=== PATIENT | female | born 1980 | race Caucasian/White ===

== ENCOUNTER 2024-05-23 19:12 | Observation (INO) ==
--- NOTE | 2024-05-23 20:00 | Emergency Department Note ---
Impression & Plan Pulmonary embolism, Embolism, pulmonary with infarction ED Provider Note NAME: RANDY HE AGE: 43 SEX: F : 1980 ARRIVES VIA: Walk-In INFORMANT: Patient, ED PROVIDER(S): Adam Subramanian DO CHIEF COMPLAINT: Chest pain HPI: The patient is a 43-year-old female who presented to the emergency department for right-sided chest pain. She has pain when she takes a deep breath. The pain does go to her right shoulder. The complains of nausea but no vomiting. She has no diarrhea. She denies having any abdominal pain. The patient states that she still has her gallbladder. She has a family history for pulmonary embolism. The patient's not been seen by a provider prior to coming emergency department. ROS: See above HPI for pertinent positives & negatives. A total of 10 systems reviewed and were otherwise negative. PAST MEDICAL HISTORY: See Below PAST SURGICAL HISTORY: See Below FAMILY HISTORY: See Below SOCIAL HISTORY: See Below HOME MEDICATIONS: See Below ALLERGIES: See Below VITALS: See Below PHYSICAL EXAMINATION: GENERAL: The patient is awake and alert. The patient is anxious appearing and appears to be uncomfortable. EYES: The conjunctivae are clear. The pupils are round and reactive. EARS, NOSE, MOUTH AND THROAT: The nose is without any evidence of any deformity. NECK: The neck is nontender and supple. RESPIRATORY: Normal respiratory effort is noted there is no evidence of wheezing rhonchi or rales CARDIOVASCULAR: Regular rate and rhythm noted there no murmurs rubs or gallops normal S1 normal S2. GASTROINTESTINAL: The abdomen is soft and mildly distended. There was right upper quadrant tenderness to palpation but no guarding or rigidity. MUSCULOSKELETAL/EXTREMITIES: There is no evidence of gross deformity full range of motion is noted in the hips and shoulders. SKIN: There is no obvious evidence of any rash. There are no petechiae, pallor or cyanosis noted. NEUROLOGIC: Patient is awake alert and oriented x3 MEDICAL DECISION MAKING: The patient is a 43-year-old female who presented to the emergency department for an evaluation of right sided chest pain. The patient did have reproducible right upper quadrant pain on my physical exam. Initially I thought the patient was suffering from gallbladder pathology. I discussed the patient's laboratory and radiographic studies with her. Ultimately her gallbladder did not appear to show any abnormality so a CT of the chest abdomen pelvis was obtained. This appeared to be consistent with a right-sided PE with a pulmonary infarct. She was started on heparin. Further laboratory and radiographic studies were ordered to workup this pulmonary embolism. The patient had very reassuring vital signs. I discussed the patient's condition with her. Ultimately I feel the patient would be a better candidate for inpatient management. For this reason I discussed her condition with the on-call [facility]. Triage Nursing notes reviewed. Prior medical records reviewed Vital Signs: reviewed and remarkable for no significant abnormalities Differential diagnosis: Cardiac ischemia, aortic dissection, pulmonary embolism, pneumothorax, pneumonia, pericarditis, myocarditis, esophageal rupture, GERD, cholecystitis, pancreatitis, musculoskeletal, as well as other pathologies. ER treatment provided: See below Diagnostics interpreted by me: ECG: EKG was obtained in the emergency department. My interpretation is normal sinus rhythm at 91 bpm. There is no ectopy. There is no acute ST segment abnormalities noted. No previous tracing was available. Cardiac Monitoring: An order was placed for continuous cardiac monitoring. The monitor shows a rate of 93 bpm with sinus rhythm. Laboratory studies: As stated above and show below. Imaging studies: See below. Radiographic imaging was reviewed by myself Consultation(s): I discussed this case with Dr. Arvizu who is on-call for the [facility]. ED COURSE: Procedures: none Critical Care: I have personally spent greater than 45 minutes of critical care time in the direct management of this patient. This includes bedside care, interpretation of diagnostic studies, and testing, discussion with consultants, patient, and family members, and other required patient management activities. This 45 minutes is in excess of all separately billable procedures. Past Med/Surg History Problem List (Updated 05/23/24 @ 22:02 by Adam Subramanian DO) Embolism, pulmonary with infarction (Acute) Pulmonary embolism (Acute) Acute low back pain (Acute 12/23/12) Dehydration (Acute) Headache (Acute) (Acute) (Acute) Medical History GERD (gastroesophageal reflux disease) Frequent headaches Family History Other Cerebral aneurysm Social History Smoking Status: Never smoker Preferred Language: [place] Feels Safe at Home: Yes Allergies Allergies Allergy/AdvReac Type Severity Reaction Status Date / Time No Known Allergies Allergy Unverified 05/23/24 22:21 Home Meds Home Medications Medication Instructions Recorded Confirmed omeprazole 20 mg capsule,delayed 20 mg PO QAM 05/07/23 05/23/24 release plecanatide 3 mg tablet (Trulance) 3 mg PO QAM 05/07/23 05/23/24 cholecalciferol (vitamin D3) 50 50 mcg PO DAILY 05/23/24 05/23/24 mcg (2,000 unit) tablet (Vitamin D3) cyanocobalamin (vitamin B-12) 500 500 mcg PO DAILY 05/23/24 05/23/24 mcg tablet (Vitamin B-12) famotidine 20 mg tablet 20 mg PO AMHS 05/23/24 05/23/24 [id number]-[id number]-FA-Ca carb-vit K 1 tab PO DAILY 05/23/24 05/23/24 18 mg iron-400 mcg-500 mg tablet (Women's One Daily) Results & Data (ED) Vital Signs Vital Signs - 24 hr 05/23/24 19:16 05/23/24 19:37 05/23/24 21:11 Temperature 36.6 C Temperature Source Temporal Artery Scan Pulse Rate 106 H 93 H Pulse Rate [Apical] 84 Pulse Rhythm [Apical] Pulse Strength [Apical] Respiratory Rate 18 19 Respiratory Effort / Characteristics Non-Labored Respiratory Depth Normal Normal Respiratory Pattern Regular Blood Pressure 115/80 Blood Pressure [Right Arm] 122/79 Blood Pressure Mean 91 Blood Pressure Mean [Right Arm] 93 Pulse Oximetry 100 95 Oxygen Delivery Method Room Air Room Air Sepsis Recent Fever Within 48 Hours No Sepsis New/Unexplained Change in Mental Status No Sepsis Action Taken by Nursing No Action Required 05/23/24 22:56 05/23/24 23:49 Temperature Temperature Source Pulse Rate 93 H Pulse Rate [Apical] 92 H Pulse Rhythm [Apical] Regular Pulse Strength [Apical] Normal Respiratory Rate 19 Respiratory Effort / Characteristics Non-Labored Spontaneous Respiratory Depth Normal Respiratory Pattern Regular Blood Pressure Blood Pressure [Right Arm] 122/78 Blood Pressure Mean Blood Pressure Mean [Right Arm] 92 Pulse Oximetry 98 Oxygen Delivery Method Room Air Sepsis Recent Fever Within 48 Hours Sepsis New/Unexplained Change in Mental Status Sepsis Action Taken by Custodial Medications Current Medication List: was personally reviewed by me Laboratory Data Attestation: I reviewed the patient's lab results. 05/23/24 19:57 05/23/24 19:57 Lab Results 05/23/24 05/23/24 05/23/24 Range/Units 19:57 20:00 Unknown WBC 8.25 (4.8-10.8) K/ul RBC 4.95 (4.20-5.40) M/uL Hgb 13.1 (12.0-16.0) g/dl Hct 38.8 (37.0-47.0) % MCV 78.4 L (80.0-100.0) fL MCH 26.5 (25.0-34.0) pg MCHC 33.8 (32.0-36.0) g/dL RDW Std Deviation 38.0 (36.4-46.3) fL RDW Coeff of Gomez 13.3 (11.5-14.5) % Plt Count 244 (130-400) K/uL MPV 9.7 (9.4-12.4) fL Immature Gran % (Auto) 0.1 % Neut % (Auto) 67.9 % Lymph % (Auto) 23.8 % Waller % (Auto) 7.3 % Eos % (Auto) 0.7 % Baso % (Auto) 0.2 % Neut # (Auto) 5.60 (1.40-6.50) K/uL Lymph # (Auto) 1.96 (1.20-3.40) K/uL Waller # (Auto) 0.60 H (0.11-0.59) K/uL Eos # (Auto) 0.06 (0.00-0.50) K/uL Baso # (Auto) 0.02 (0.00-0.20) K/uL Immature Gran # (Auto) 0.01 (0.01-0.20) K/uL PT 10.9 (9.0-12.0) Seconds INR 1.0 (0.9-1.1) APTT 28 (21-31) Seconds PTT Ratio 1.0 D-Dimer 900 H* (0-500) ug/L FEU Sodium 139 (136-145) mmol/L Potassium 3.7 (3.5-5.1) mmol/L Chloride 109 H (98-107) mmol/L Carbon Dioxide 24 (21-32) mmol/L Anion Gap 6 (3-11) BUN 10 (6-23) mg/dl Creatinine 0.61 (0.6-1.2) mg/dl Est Cr Clr Drug Dosing 124.6 ml/min Est GFR ( Amer) 128.7 ml/min Est GFR (Non-Af Amer) 111.0 ml/min BUN/Creatinine Ratio 16.4 (10-20) Glucose 116 H (70-99(Fasting)) mg/dl Calcium 9.3 (8.6-10.3) mg/dl Total Bilirubin 0.8 (0.2-1.0) mg/dl AST 14 (13-39) U/L ALT 10 (7-52) U/L Alkaline Phosphatase 96 (34-104) U/L Troponin I High Sens < 2.3 (0-14) pg/ml Total Protein 6.9 (6.0-8.3) gm/dl Albumin 4.0 (3.4-5.0) gm/dl Globulin 2.9 (2.5-4.0) gm/dl Albumin/Globulin Ratio 1.4 (0.9-2) Lipase 24 (11-82) U/L HCG, Qual Negative (Negative) Urine Color Yellow Cancelled Urine Appearance Slightly Cloudy Cancelled (Clear) Urine pH 7.5 Cancelled (4.5-7.5) Ur Specific Lenox 1.020 Cancelled (1.000-1.030) Urine Protein Trace H Cancelled (Negative) Urine Glucose (UA) Negative Cancelled (Negative) Urine Ketones Trace H Cancelled (Negative) Urine Blood Negative Cancelled (Negative) Urine Nitrite Negative Cancelled (Negative) Urine Bilirubin Negative Cancelled (Negative) Urine Urobilinogen Negative Cancelled (Negative) Ur Leukocyte Esterase Trace H Cancelled (Negative) Urine WBC (Auto) Cancelled Urine RBC (Auto) Cancelled U Hyaline Cast (Auto) Cancelled U Epithel Cells (Auto) Cancelled Urine Bacteria (Auto) Cancelled Ur Renal Epithelial Cell Cancelled Pryor Biurate Crystals Cancelled Calcium Oxalate Crystal Cancelled Leucine Crystals Cancelled Cystine Crystals Cancelled Uric Acid Crystals Cancelled Triple Phos Crystals Cancelled Sulfonamide Crystals Cancelled Cholesterol Crystals Cancelled Talc Crystals Cancelled Tyrosine Crystals Cancelled Hippuric Acid Crystals Cancelled Unidentified Crystals Cancelled Amorphous Sediment Cancelled Epithelial Casts Cancelled Hyaline Casts Cancelled Granular Casts Cancelled Waxy Casts Cancelled RBC Casts Cancelled WBC Casts Cancelled Other Casts Cancelled Urine Mucus Cancelled Urine Other Cancelled Urine Trichomonas Cancelled Urine Yeast Cancelled Urine Sperm Cancelled Ur Oval Fat Bodies Cancelled Administered Medications Heparin Sodium/Dextrose (Heparin Sodium/Dextrose) 25,000 units in 500 mls @ 24 mls/hr IV .[id number] [facility]; Protocol Stop: 06/22/24 22:29 Last Admin: 05/23/24 22:50 Dose: 1,200 units/hr, 24 mls/hr Documented By: ASHA Co-signed By: Discontinued Medications Heparin Sodium (Porcine) (Heparin Sod (Porcine) 1000 Unit/Ml) 5,000 units IV NOW ONE Stop: 05/23/24 22:46 Last Admin: 05/23/24 22:50 Dose: 5,000 units Documented By: ASHA Co-signed By: Heparin Sodium/Dextrose (Heparin Iv Adult Wt-Based Standard W/ Initial Bolus Protocol) 1 each IV NOW STA; Protocol Stop: 05/23/24 22:13 Last Admin: 05/23/24 22:58 Dose: Not Given Documented By: ASHA Ioversol (Optiray 320 125ml) 119 ml IV ONCE ONE Stop: 05/23/24 21:03 Last Admin: 05/23/24 21:03 Dose: 119 ml Documented By: MAURICE Imaging Data Attestation: I personally reviewed and interpreted this imaging study as follows: My Impression: CT of the chest was obtained in the emergency department. My interpretation is left-sided atelectasis with infiltrate, small pleural effusion was noted, final report below. CT of the abdomen and pelvis was obtained in the emergency department. My interpretation is no free air or signs of bowel obstruction, final report below. Radiologist's Impression: Gallbladder Ultrasound 05/23/24 19:29 Exam(s): US GALLBLADDER EXAM: US Abdomen Limited, Gallbladder CLINICAL HISTORY: Reason for exam: RUQ pain. TECHNIQUE: Real-time ultrasound of the right upper quadrant with image documentation. COMPARISON: CTA chest done earlier. FINDINGS: Liver: Unremarkable. Gallbladder: Normally distended. No gallstones, wall thickening or acute cholecystitis. Common bile duct: CBD 3 mm. No dilation. Pancreas: Not visualized, due to bowel gas. Right kidney: No hydronephrosis. IMPRESSION: No acute findings. No hydronephrosis, cholelithiasis or acute cholecystitis. Electronically signed by: Stacey Smith M.D. 05/23/24 21:56 PM Abdomen/Pelvis CT 05/23/24 20:41 Exam(s): CT ABDOMEN + PELVIS With Contrast IV Amt: 119 ml optiray 320 EXAM: CT Abdomen and Pelvis With Intravenous Contrast CLINICAL HISTORY: Reason for exam: RUQ pain. TECHNIQUE: Axial computed tomography images of the abdomen and pelvis with intravenous contrast. CTDI is 24.35 mGy and DLP is 1261 mGy-cm. Automated exposure control was utilized for the study. A dose lowering technique was utilized adhering to the principles of ALARA. CONTRAST: Patient received 119 ml optiray 320 of IV contrast COMPARISON: Gallbladder ultrasound done earlier. FINDINGS: Lung bases: 1.6 cm cyst in the right breast, not well evaluated by CT, correlate with mammogram and/or ultrasound. There is a separately dictated CTA chest describing a right lower lobe PE. See that separately dictated report. Liver: Unremarkable. Gallbladder and bile ducts: Normal gallbladder. No ductal dilation. Pancreas: No ductal dilation. Spleen: Unremarkable. Adrenals: Unremarkable. Kidneys and ureters: No pyelonephritis or hydronephrosis. Stomach and bowel: No obstruction. Appendix: Normal. Intraperitoneal space: No free air or fluid. Bones/joints: No acute fracture. Soft tissues: Unremarkable. Vasculature: No aortic aneurysm. Lymph nodes: No enlarged lymph nodes. Bladder: No stones. Reproductive: Within normal limits for patient's age and this technique, with bilateral ovarian follicles, largest on the left measuring 1.5 cm. IMPRESSION: 1. No acute intra-abdominal or intrapelvic abnormality. 2. Probable cyst in the right breast, not well evaluated by CT. Consider ultrasound correlation. 3. Presumed physiologic follicles bilateral ovaries. No pelvic free fluid. Electronically signed by: Stacey Smith M.D. 05/23/24 22:09 PM Chest CTA 05/23/24 20:41 CR Exam(s): CTA CHEST IV Amt: 119 ml optiry 320 EXAM: CT Angiography Chest With Intravenous Contrast CLINICAL HISTORY: Reason for exam: PE. TECHNIQUE: Axial computed tomographic angiography images of the chest with intravenous contrast. CTDI is 24.82 mGy and DLP is 720.9 mGy-cm. Automated exposure control was utilized for the study. A dose lowering technique was utilized adhering to the principles of ALARA. 119 ML Optiray 320 IV contrast is given. MIP reconstructed images were created and reviewed. Mild breathing motion artifact. COMPARISON: None. FINDINGS: Pulmonary arteries: Small volume, occlusive subsegmental right lower lobe pulmonary embolism. No other pulmonary embolism. Aorta: No aneurysm. Lungs: Mild nodular interstitial infiltrates posterior right lower lobe lung, nonspecific, possible atelectasis, infiltrate or infarct. Pleural space: Mild right effusion. No pneumothorax. Heart: No cardiomegaly. No significant pericardial effusion. No evidence of elevated right heart pressures. Bones/joints: No acute fracture. Soft tissues: Unremarkable. Lymph nodes: No enlarged lymph nodes. IMPRESSION: 1. Mild burden occlusive subsegmental right lower lobe PE. 2. Mild right pleural effusion and infiltrate/infarct right lower lobe lung. Communications: Call Doctor Pulmonary Embolism Electronically signed by: Stacey Smith M.D. 05/23/24 21:49 PM Discharge Plan Visit Data Chief Complaint: Abdominal Pain Stated Complaint: CAN'T TAKE DEEP BREATH, CHEST PAIN ED Provider: Adam Subramanian Discharge Problem: Pulmonary embolism, Embolism, pulmonary with infarction Patient Disposition: Being Evaluated by Hospitalist Forms Stand Alone Forms: My [facility] Prescriptions Prescriptions: No Action omeprazole 20 mg capsule,delayed release(DR/EC) 20 mg PO QAM Trulance 3 mg tablet 3 mg PO QAM Women's One Daily 18 mg iron-400 mcg-500 mg Tablet 1 tab PO DAILY cyanocobalamin (vitamin B-12) [Vitamin B-12] 500 mcg Tablet 500 mcg PO DAILY cholecalciferol (vitamin D3) [Vitamin D3] 50 mcg (2,000 unit) Tablet 50 mcg PO DAILY famotidine 20 mg Tablet 20 mg PO AMHS Referrals Referrals: Ludwig Dao DO [Primary Care Provider] - Discharge Problem: Pulmonary embolism Qualifiers: Pulmonary embolism type: unspecified Chronicity: acute Acute cor pulmonale presence: unspecified Qualified Code(s): I26.99 - Other pulmonary embolism without acute cor pulmonale
[2024-05-23 20:10] LABS: Appearance Urine Slightly Cloudy (Clear); Bilirubin Urine Negative (Negative); Blood Urine Negative (Negative); Color Urine Yellow; Glucose Urine UA Negative (Negative); Ketones Urine Trace (Negative); Leukocyte Esterase Urine Trace (Negative); Nitrite Urine Negative (Negative); Protein Urine Trace (Negative); Urobilinogen Urine Negative (Negative); pH Urine 7.5 (4.5-7.5)
[2024-05-23 20:15] LABS: Basophils # (auto) 0.02 K/uL (0.00-0.20); Basophils % (auto) 0.2 %; Eosinophils # (auto) 0.06 K/uL (0.00-0.50); Eosinophils % (auto) 0.7 %; Hematocrit (blood only) 38.8 % (37.0-47.0); Hemoglobin 13.1 g/dl (12.0-16.0); Immature Granulocytes # (auto) 0.01 K/uL (0.01-0.20); Immature Granulocytes % (auto) 0.1 %; Lymphocytes # (auto) 1.96 K/uL (1.20-3.40); Lymphocytes % (auto) 23.8 %; Mean Corpuscular Hemoglobin 26.5 pg (25.0-34.0); Mean Corpuscular Hgb Conc 33.8 g/dL (32.0-36.0); Mean Corpuscular Volume 78.4 fL (80.0-100.0); Mean Platelet Volume 9.7 fL (9.4-12.4); Monocytes % (auto) 7.3 %; Neutrophils % (auto) 67.9 %; Platelet Count 244 K/uL (130-400); RDW Coefficient of Variation 13.3 % (11.5-14.5); Red Blood Count 4.95 M/uL (4.20-5.40); White Blood Count 8.25 K/ul (4.8-10.8)
[2024-05-23 20:31] LABS: Pregnancy Test, Serum Negative (Negative)
[2024-05-23 20:33] LABS: Alanine Aminotransferase 10 U/L (7-52); Albumin Globulin Ratio 1.4 (0.9-2); Alkaline Phosphatase 96 U/L (34-104); Anion Gap 6 (3-11); Aspartate Aminotransferase 14 U/L (13-39); BUN Creatinine Ratio 16.4 (10-20); Bilirubin,Total 0.8 mg/dl (0.2-1.0); Blood Urea Nitrogen 10 mg/dl (6-23); Calcium 9.3 mg/dl (8.6-10.3); Carbon Dioxide 24 mmol/L (21-32); Chloride 109 mmol/L (98-107); Creatinine Clr Calc Pharmacy 124.6 ml/min; Est GFR (African American) 128.7 ml/min; Globulin 2.9 gm/dl (2.5-4.0); Glucose 116 mg/dl (70-99(Fasting)); Lipase 24 U/L (11-82); Potassium 3.7 mmol/L (3.5-5.1); Sodium 139 mmol/L (136-145); Total Protein 6.9 gm/dl (6.0-8.3)
[2024-05-23 20:38] LABS: Troponin I High Sensitivity < 2.3 pg/ml (0-14)
[2024-05-23 20:46] LABS: Partial Thromboplastin Time 28 Seconds (21-31); Prothrombin Time 10.9 Seconds (9.0-12.0)
[2024-05-23 20:57] LABS: D Dimer 900 ug/L FEU (0-500)
[2024-05-23] MEDS: OPTIRAY 320 125ml IV ONE (21:03)
--- NOTE | 2024-05-23 21:50 | CT Scan Report ---
Exam(s): CTA CHEST IV Amt: 119 ml optiry 320 EXAM: CT Angiography Chest With Intravenous Contrast CLINICAL HISTORY: Reason for exam: PE. TECHNIQUE: Axial computed tomographic angiography images of the chest with intravenous contrast. CTDI is 24.82 mGy and DLP is 720.9 mGy-cm. Automated exposure control was utilized for the study. A dose lowering technique was utilized adhering to the principles of ALARA. 119 ML Optiray 320 IV contrast is given. MIP reconstructed images were created and reviewed. Mild breathing motion artifact. COMPARISON: None. FINDINGS: Pulmonary arteries: Small volume, occlusive subsegmental right lower lobe pulmonary embolism. No other pulmonary embolism. Aorta: No aneurysm. Lungs: Mild nodular interstitial infiltrates posterior right lower lobe lung, nonspecific, possible atelectasis, infiltrate or infarct. Pleural space: Mild right effusion. No pneumothorax. Heart: No cardiomegaly. No significant pericardial effusion. No evidence of elevated right heart pressures. Bones/joints: No acute fracture. Soft tissues: Unremarkable. Lymph nodes: No enlarged lymph nodes. IMPRESSION: 1. Mild burden occlusive subsegmental right lower lobe PE. 2. Mild right pleural effusion and infiltrate/infarct right lower lobe lung. Communications: Call Doctor Pulmonary Embolism Electronically signed by: Stacey Smith M.D. 05/23/24 21:49 PM
--- NOTE | 2024-05-23 21:57 | Ultrasound Report ---
Exam(s): US GALLBLADDER EXAM: US Abdomen Limited, Gallbladder CLINICAL HISTORY: Reason for exam: RUQ pain. TECHNIQUE: Real-time ultrasound of the right upper quadrant with image documentation. COMPARISON: CTA chest done earlier. FINDINGS: Liver: Unremarkable. Gallbladder: Normally distended. No gallstones, wall thickening or acute cholecystitis. Common bile duct: CBD 3 mm. No dilation. Pancreas: Not visualized, due to bowel gas. Right kidney: No hydronephrosis. IMPRESSION: No acute findings. No hydronephrosis, cholelithiasis or acute cholecystitis. Electronically signed by: Stacey Smith M.D. 05/23/24 21:56 PM
--- NOTE | 2024-05-23 22:10 | CT Scan Report ---
Exam(s): CT ABDOMEN + PELVIS With Contrast IV Amt: 119 ml optiray 320 EXAM: CT Abdomen and Pelvis With Intravenous Contrast CLINICAL HISTORY: Reason for exam: RUQ pain. TECHNIQUE: Axial computed tomography images of the abdomen and pelvis with intravenous contrast. CTDI is 24.35 mGy and DLP is 1261 mGy-cm. Automated exposure control was utilized for the study. A dose lowering technique was utilized adhering to the principles of ALARA. CONTRAST: Patient received 119 ml optiray 320 of IV contrast COMPARISON: Gallbladder ultrasound done earlier. FINDINGS: Lung bases: 1.6 cm cyst in the right breast, not well evaluated by CT, correlate with mammogram and/or ultrasound. There is a separately dictated CTA chest describing a right lower lobe PE. See that separately dictated report. Liver: Unremarkable. Gallbladder and bile ducts: Normal gallbladder. No ductal dilation. Pancreas: No ductal dilation. Spleen: Unremarkable. Adrenals: Unremarkable. Kidneys and ureters: No pyelonephritis or hydronephrosis. Stomach and bowel: No obstruction. Appendix: Normal. Intraperitoneal space: No free air or fluid. Bones/joints: No acute fracture. Soft tissues: Unremarkable. Vasculature: No aortic aneurysm. Lymph nodes: No enlarged lymph nodes. Bladder: No stones. Reproductive: Within normal limits for patient's age and this technique, with bilateral ovarian follicles, largest on the left measuring 1.5 cm. IMPRESSION: 1. No acute intra-abdominal or intrapelvic abnormality. 2. Probable cyst in the right breast, not well evaluated by CT. Consider ultrasound correlation. 3. Presumed physiologic follicles bilateral ovaries. No pelvic free fluid. Electronically signed by: Stacey Smith M.D. 05/23/24 22:09 PM
[2024-05-23] MEDS ORDERED: HEPARIN SOD (PORCINE) 1000 UNIT/ML IV ONE (22:27)
[2024-05-23] MEDS: HEPARIN SOD (PORCINE) 1000 UNIT/ML IV ONE (22:50)
[2024-05-23] MEDS: HEPARIN SODIUM/DEXTROSE 25,000 UNITS/500 ML BAG IV SCH (22:50)
[2024-05-23] MEDS: Heparin IV Adult Wt-Based Standard w/ INITIAL Bolus Protocol IV STA (22:58)
--- NOTE | 2024-05-23 23:59 | History & Physical Report ---
Date of Service May 23, 2024 Assessment & Plan (1) Embolism, pulmonary with infarction: Plan: 43-year-old female with past medical significant for hyperinsulinism, nonsustained ventricular tachycardia, GERD, overactive bladder, chronic pain, obesity, chronic fatigue, general anxiety disorder presents with right-sided chest pain and found to have acute PE. Patient states she woke up in the morning with right shoulder pain radiating to the right back of the chest thought it would go away but it was not getting better so came to the ER. The pain is more when she taking deep breath. Denies any shortness of breath. No cough. No fevers. Currently no headache. Vision is okay. No runny nose or sore throat. Appetite is okay. No nausea.Has some abdominal discomfort which is chronic and also chronic issues with the bowel movements. Normal bladder movements. No bloody or black stools. No hematuria. No rash. No swelling in the legs. Hemodynamics okay. No recent long distance travel. No recent surgery. Mother had a blood clot once after surgery and once after after being hit by a ball as per patient.Patient had history of Lyme disease. Acute pulmonary embolism with infarction Hypercoagulable workup sent by ER Started on IV heparin Will check echo and lower EXTR Doppler Monitor in the hospital History of nonsustained ventricular tachycardia Will monitor GERD On famotidine And omeprazole DVT prophylaxis IV heparin Disposition Med/telemetry Full code. History of Present Illness Chief Complaint: Acute PE Primary Care Provider: Ludwig Dao DO 43-year-old female with past medical significant for hyperinsulinism, nonsustained ventricular tachycardia, GERD, overactive bladder, chronic pain, obesity, chronic fatigue, general anxiety disorder presents with right-sided chest pain and found to have acute PE. Patient states she woke up in the morning with right shoulder pain radiating to the right back of the chest thought it would go away but it was not getting better so came to the ER. The pain is more when she taking deep breath. Denies any shortness of breath. No cough. No fevers. Currently no headache. Vision is okay. No runny nose or sore throat. Appetite is okay. No nausea. No abdominal pain. Normal bowel and bladder movements. No bloody or black stools. No hematuria. No rash. No swelling in the legs. Hemodynamics okay. No recent long distance travel. No recent surgery. Mother had a blood clot once after surgery and once after after being hit by a ball as per patient.Patient had history of Lyme disease. Past medical history. As mentioned above Past surgical history. Colonoscopy. Colposcopy. Dilatation curettage. EGD. EGD with endoscopic ultrasound. Hysteroscopy. Removal of several ovary and cyst. Social history. quit smoking 2008. Smoked 1 pack a day for 5 years. No alcohol use. No drug use. Family history mother had blood clots. CLL. Diabetes. Kidney stones. Maternal aunt had breast cancer. Maternal grandmother had breast cancer. Maternal aunt had diabetes. Maternal grandfather had diabetes. Maternal grandmother had diabetes. Allergies Allergy/AdvReac Type Severity Reaction Status Date / Time No Known Allergies Allergy Unverified 05/23/24 22:21 Home Medications Medication Instructions Recorded Confirmed Type omeprazole 20 mg capsule,delayed 20 mg PO QAM 05/07/23 05/23/24 History release plecanatide 3 mg tablet (Trulance) 3 mg PO QAM 05/07/23 05/23/24 History cholecalciferol (vitamin D3) 50 50 mcg PO DAILY 05/23/24 05/23/24 History mcg (2,000 unit) tablet (Vitamin D3) cyanocobalamin (vitamin B-12) 500 500 mcg PO DAILY 05/23/24 05/23/24 History mcg tablet (Vitamin B-12) famotidine 20 mg tablet 20 mg PO AMHS 05/23/24 05/23/24 History ydgrhntz-mws-wvtw-FA-Ca carb-vit K 1 tab PO DAILY 05/23/24 05/23/24 History 18 mg iron-400 mcg-500 mg tablet (Women's One Daily) Past Med/Surg History Problem List (Updated 05/23/24 @ 22:02 by Adam Subramanian DO) Embolism, pulmonary with infarction (Acute) Pulmonary embolism (Acute) Acute low back pain (Acute 12/23/12) Dehydration (Acute) Headache (Acute) (Acute) (Acute) Medical History GERD (gastroesophageal reflux disease) Frequent headaches Family History Other Cerebral aneurysm Social History Smoking Status: Former smoker Smoking End Date: pt states quit 2009; Hx Alcohol Use: No Hx Substance Use: No Preferred Language: Latvian Communication Ability: Effective Intelligence Manager Required: No Beliefs That Will Affect Care: None Current Living Situation: Spouse Feels Safe at Home: Yes Safety Concerns: Feels Safe At This Time Assistive Devices: Denture - Upper and Denture - Lower Review of Systems Review of Systems: All systems reviewed & are unremarkable except as noted in HPI & below Physical Exam Physical Exam: General- Not in distress. Head- atraumatic Eyes- PERRL. ENT- oropharynx clear Neck- supple, no JVD. Lungs- clear to auscultation no wheezing or crackles Heart- regular rate and rhythm; no murmur, no gallop. Abdomen- normal bowel sounds, soft, nontender, no distension Extremities- no pretibial edema, no erythema seen. Neuro- alert, oriented; PERRL, no facial palsy; no dysarthria; moves extremities Results & Data Results & Data Vital Signs (Past 12 Hours) Vital Signs Temp Pulse Pulse Resp BP BP Pulse Ox 05/23/24 22:56 92 H 19 122/78 98 05/23/24 21:11 84 19 122/79 95 05/23/24 19:37 93 H 05/23/24 19:16 36.6 C 106 H 18 115/80 100 O2 Del Method 05/23/24 22:56 Room Air 05/23/24 21:11 Room Air 05/23/24 19:37 05/23/24 19:16 Room Air Diagnostic Findings Laboratory Results WBC 8.25 K/ul (4.8-10.8) 05/23/24 19:57 RBC 4.95 M/uL (4.20-5.40) 05/23/24 19:57 Hgb 13.1 g/dl (12.0-16.0) 05/23/24 19:57 Hct 38.8 % (37.0-47.0) 05/23/24 19:57 MCV 78.4 fL (80.0-100.0) L 05/23/24 19:57 MCH 26.5 pg (25.0-34.0) 05/23/24 19:57 MCHC 33.8 g/dL (32.0-36.0) 05/23/24 19:57 RDW Std Deviation 38.0 fL (36.4-46.3) 05/23/24 19:57 RDW Coeff of Gomez 13.3 % (11.5-14.5) 05/23/24 19:57 Plt Count 244 K/uL (130-400) 05/23/24 19:57 MPV 9.7 fL (9.4-12.4) 05/23/24 19:57 Immature Gran % (Auto) 0.1 % 05/23/24 19:57 Neut % (Auto) 67.9 % 05/23/24 19:57 Lymph % (Auto) 23.8 % 05/23/24 19:57 Emanuel % (Auto) 7.3 % 05/23/24 19:57 Eos % (Auto) 0.7 % 05/23/24 19:57 Baso % (Auto) 0.2 % 05/23/24 19:57 Neut # (Auto) 5.60 K/uL (1.40-6.50) 05/23/24 19:57 Lymph # (Auto) 1.96 K/uL (1.20-3.40) 05/23/24 19:57 Emanuel # (Auto) 0.60 K/uL (0.11-0.59) H 05/23/24 19:57 Eos # (Auto) 0.06 K/uL (0.00-0.50) 05/23/24 19:57 Baso # (Auto) 0.02 K/uL (0.00-0.20) 05/23/24 19:57 Immature Gran # (Auto) 0.01 K/uL (0.01-0.20) 05/23/24 19:57 PT 10.9 Seconds (9.0-12.0) 05/23/24 19:57 INR 1.0 (0.9-1.1) 05/23/24 19:57 APTT 28 Seconds (21-31) 05/23/24 19:57 PTT Ratio 1.0 05/23/24 19:57 D-Dimer 900 ug/L FEU (0-500) H* 05/23/24 19:57 Sodium 139 mmol/L (136-145) 05/23/24 19:57 Potassium 3.7 mmol/L (3.5-5.1) 05/23/24 19:57 Chloride 109 mmol/L (98-107) H 05/23/24 19:57 Carbon Dioxide 24 mmol/L (21-32) 05/23/24 19:57 Anion Gap 6 (3-11) 05/23/24 19:57 BUN 10 mg/dl (6-23) 05/23/24 19:57 Creatinine 0.61 mg/dl (0.6-1.2) 05/23/24 19:57 Est Cr Clr Drug Dosing 124.6 ml/min 05/23/24 19:57 Est GFR ( Amer) 128.7 ml/min 05/23/24 19:57 Est GFR (Non-Af Amer) 111.0 ml/min 05/23/24 19:57 BUN/Creatinine Ratio 16.4 (10-20) 05/23/24 19:57 Glucose 116 mg/dl (70-99(Fasting)) H 05/23/24 19:57 Calcium 9.3 mg/dl (8.6-10.3) 05/23/24 19:57 Total Bilirubin 0.8 mg/dl (0.2-1.0) 05/23/24 19:57 AST 14 U/L (13-39) 05/23/24 19:57 ALT 10 U/L (7-52) 05/23/24 19:57 Alkaline Phosphatase 96 U/L (34-104) 05/23/24 19:57 Troponin I High Sens < 2.3 pg/ml (0-14) 05/23/24 19:57 Total Protein 6.9 gm/dl (6.0-8.3) 05/23/24 19:57 Albumin 4.0 gm/dl (3.4-5.0) 05/23/24 19:57 Globulin 2.9 gm/dl (2.5-4.0) 05/23/24 19:57 Albumin/Globulin Ratio 1.4 (0.9-2) 05/23/24 19:57 Lipase 24 U/L (11-82) 05/23/24 19:57 HCG, Qual Negative (Negative) 05/23/24 19:57 Urine Color Cancelled 05/23/24 Unknown Urine Appearance Cancelled 05/23/24 Unknown Urine pH Cancelled 05/23/24 Unknown Ur Specific [place] Cancelled 05/23/24 Unknown Urine Protein Cancelled 05/23/24 Unknown Urine Glucose (UA) Cancelled 05/23/24 Unknown Urine Ketones Cancelled 05/23/24 Unknown Urine Blood Cancelled 05/23/24 Unknown Urine Nitrite Cancelled 05/23/24 Unknown Urine Bilirubin Cancelled 05/23/24 Unknown Urine Urobilinogen Cancelled 05/23/24 Unknown Ur Leukocyte Esterase Cancelled 05/23/24 Unknown Urine WBC (Auto) Cancelled 05/23/24 Unknown Urine RBC (Auto) Cancelled 05/23/24 Unknown U Hyaline Cast (Auto) Cancelled 05/23/24 Unknown U Epithel Cells (Auto) Cancelled 05/23/24 Unknown Urine Bacteria (Auto) Cancelled 05/23/24 Unknown Ur Renal Epithelial Cell Cancelled 05/23/24 Unknown [place] Biurate Crystals Cancelled 05/23/24 Unknown Calcium Oxalate Crystal Cancelled 05/23/24 Unknown Leucine Crystals Cancelled 05/23/24 Unknown Cystine Crystals Cancelled 05/23/24 Unknown Uric Acid Crystals Cancelled 05/23/24 Unknown Triple Phos Crystals Cancelled 05/23/24 Unknown Sulfonamide Crystals Cancelled 05/23/24 Unknown Cholesterol Crystals Cancelled 05/23/24 Unknown [place] Crystals Cancelled 05/23/24 Unknown Tyrosine Crystals Cancelled 05/23/24 Unknown Hippuric Acid Crystals Cancelled 05/23/24 Unknown Unidentified Crystals Cancelled 05/23/24 Unknown Amorphous Sediment Cancelled 05/23/24 Unknown Epithelial Casts Cancelled 05/23/24 Unknown Hyaline Casts Cancelled 05/23/24 Unknown Granular Casts Cancelled 05/23/24 Unknown Waxy Casts Cancelled 05/23/24 Unknown RBC Casts Cancelled 05/23/24 Unknown WBC Casts Cancelled 05/23/24 Unknown Other Casts Cancelled 05/23/24 Unknown Urine Mucus Cancelled 05/23/24 Unknown Urine Other Cancelled 05/23/24 Unknown Urine Trichomonas Cancelled 05/23/24 Unknown Urine Yeast Cancelled 05/23/24 Unknown Urine Sperm Cancelled 05/23/24 Unknown Ur Oval Fat Bodies Cancelled 05/23/24 Unknown Impressions Gallbladder Ultrasound 05/23/24 19:29 Exam(s): US GALLBLADDER EXAM: US Abdomen Limited, Gallbladder CLINICAL HISTORY: Reason for exam: RUQ pain. TECHNIQUE: Real-time ultrasound of the right upper quadrant with image documentation. COMPARISON: CTA chest done earlier. FINDINGS: Liver: Unremarkable. Gallbladder: Normally distended. No gallstones, wall thickening or acute cholecystitis. Common bile duct: CBD 3 mm. No dilation. Pancreas: Not visualized, due to bowel gas. Right kidney: No hydronephrosis. IMPRESSION: No acute findings. No hydronephrosis, cholelithiasis or acute cholecystitis. Electronically signed by: Stacey Smith M.D. 05/23/24 21:56 PM Abdomen/Pelvis CT 05/23/24 20:41 Exam(s): CT ABDOMEN + PELVIS With Contrast IV Amt: 119 ml optiray 320 EXAM: CT Abdomen and Pelvis With Intravenous Contrast CLINICAL HISTORY: Reason for exam: RUQ pain. TECHNIQUE: Axial computed tomography images of the abdomen and pelvis with intravenous contrast. CTDI is 24.35 mGy and DLP is 1261 mGy-cm. Automated exposure control was utilized for the study. A dose lowering technique was utilized adhering to the principles of ALARA. CONTRAST: Patient received 119 ml optiray 320 of IV contrast COMPARISON: Gallbladder ultrasound done earlier. FINDINGS: Lung bases: 1.6 cm cyst in the right breast, not well evaluated by CT, correlate with mammogram and/or ultrasound. There is a separately dictated CTA chest describing a right lower lobe PE. See that separately dictated report. Liver: Unremarkable. Gallbladder and bile ducts: Normal gallbladder. No ductal dilation. Pancreas: No ductal dilation. Spleen: Unremarkable. Adrenals: Unremarkable. Kidneys and ureters: No pyelonephritis or hydronephrosis. Stomach and bowel: No obstruction. Appendix: Normal. Intraperitoneal space: No free air or fluid. Bones/joints: No acute fracture. Soft tissues: Unremarkable. Vasculature: No aortic aneurysm. Lymph nodes: No enlarged lymph nodes. Bladder: No stones. Reproductive: Within normal limits for patient's age and this technique, with bilateral ovarian follicles, largest on the left measuring 1.5 cm. IMPRESSION: 1. No acute intra-abdominal or intrapelvic abnormality. 2. Probable cyst in the right breast, not well evaluated by CT. Consider ultrasound correlation. 3. Presumed physiologic follicles bilateral ovaries. No pelvic free fluid. Electronically signed by: Stacey Smith M.D. 05/23/24 22:09 PM Chest CTA 05/23/24 20:41 CR Exam(s): CTA CHEST IV Amt: 119 ml optiry 320 EXAM: CT Angiography Chest With Intravenous Contrast CLINICAL HISTORY: Reason for exam: PE. TECHNIQUE: Axial computed tomographic angiography images of the chest with intravenous contrast. CTDI is 24.82 mGy and DLP is 720.9 mGy-cm. Automated exposure control was utilized for the study. A dose lowering technique was utilized adhering to the principles of ALARA. 119 ML Optiray 320 IV contrast is given. MIP reconstructed images were created and reviewed. Mild breathing motion artifact. COMPARISON: None. FINDINGS: Pulmonary arteries: Small volume, occlusive subsegmental right lower lobe pulmonary embolism. No other pulmonary embolism. Aorta: No aneurysm. Lungs: Mild nodular interstitial infiltrates posterior right lower lobe lung, nonspecific, possible atelectasis, infiltrate or infarct. Pleural space: Mild right effusion. No pneumothorax. Heart: No cardiomegaly. No significant pericardial effusion. No evidence of elevated right heart pressures. Bones/joints: No acute fracture. Soft tissues: Unremarkable. Lymph nodes: No enlarged lymph nodes. IMPRESSION: 1. Mild burden occlusive subsegmental right lower lobe PE. 2. Mild right pleural effusion and infiltrate/infarct right lower lobe lung. Communications: Call Doctor Pulmonary Embolism Electronically signed by: Stacey Smith M.D. 05/23/24 21:49 PM ECG Additional Comments: ECG. Normal sinus rhythm with sinus arrhythmia at rate of 91. No acute ST Changes seen. Code Status & VTE Plan VTE Prophylaxis Plan VTE Prophylaxis will be ordered: Yes
[2024-05-24] MEDS ORDERED: POLYETHYLENE (MIRALAX) 17 GM PACK PO PRN (00:59)
[2024-05-24] MEDS ORDERED: traMADol HCL 50 MG TABLET PO PRN (00:59)
[2024-05-24] MEDS ORDERED: NITROGLYCERIN SL 0.4 MG/TAB TAB SL PRN (00:59)
[2024-05-24] MEDS: SODIUM CHLORIDE 0.9% 1,000 ML IV SCH (01:28)
--- OUTSIDE RECORDS SUMMARY | 2024-05-24 04:15 | External Medical Summary | Summary of Care ---
Author Name Unknown Organization [facility] Address [address] [place] [address] Phone [phone] Care Team Providers Care Poultry Packer Name Role Phone Melissa Rukhsanaroula Flores DO Primary Care Provider [phone] Reason for Visit * Reason Comments Outpatient Testing Encounter Details Date Type Department Care Team (Late st Contact Info) Description 01/21/2024 2:30 PM EDT Laboratory Laboratory, [facility] [address] [facility] [place] [id number] [facility] [address] [place] [address] Irregular intermenstrual bleeding Allergies No known active allergiesdocumented as of this encounter (statuses as of 01/21/2024) Medications Medication Sig Dispensed Refills Start Date End Date Status Oxybutynin Chloride ER 10 MG Oral Tablet Extended Release 24 HourIndications:OAB (overactive bladder) Take 1 Tablet by mouth in the morning. Do not cut, crush or chew. 90 Tablet 3 05/20/2023 Active Additional Information Patient not taking.Reported on 08/12/2023 One Daily Multivitamin Women Oral Tablet Take 1 Tablet by mouth daily. 0 Active Famotidine 20 MG Oral Tablet (Pepcid)Indications :Gastroesophageal reflux disease without esophagitis Take 1 Tablet by mouth in the morning and 1 Tablet before bedtime. 180 Tablet 3 08/12/2023 Active Omeprazole 20 MG Oral Capsule Delayed Release (PriLOSEC) Take 1 Capsule by mouth daily. 90 Capsule 3 08/12/2023 Active Trulance 3 MG Oral Tablet (Plecanatide) Take 3 mg by mouth in the morning. 90 Tablet 3 08/12/2023 Active Ondansetron HCl 4 MG Oral Tablet (Zofran)Indications :Nausea TAKE 1 TABLET BY MOUTH EVERY 6 HOURS NEEDED FOR NAUSEA 24 Tablet 0 08/25/2023 Active Additional Information Patient not taking.Reported on 08/27/2023 Multi-Vitamins Oral Tablet Take 1 Tablet by mouth in the morning. 0 Active Terbinafine HCl 1 % External Cream (LamISIL AT)Indications:Skin lesions Apply topically to affected area daily. To affected area. 12 g 0 10/28/2023 Active Additional Information Patient not taking.Reported on 01/19/2024 Vitamin B 12 500 MCG Oral Tablet Take by mouth. 0 Activ e Vitamin D (Cholecalciferol) 50 MCG (2000 UT) Oral Capsule Take by mouth. 0 Active documented as of this encounter (statuses as of 01/21/2024) Active Problems Problem Noted Date Diagnosed Date Chronic fatigue 04/26/2023 Chronic neck pain 04/26/2023 Gastroesophageal reflux disease without esophagi tis 04/26/2023 OAB (overactive bladder) 04/26/2023 LASHA (generalized anxiety disorder) 04/26/2023 Patellofemoral syndrome of right knee 04/26/2023 Obesity, Class I, BMI 30.0-34.9 (see actual BMI) 12/30/2021 NSVT (nonsustained ventricular tachycardia) 10/2018 S/P LEEP (loop electrosurgical excision procedur e) 05/06/2012 Hyperinsulinism 05/06/2012 documented as of this encounter (statuses as of 01/21/2024) Resolved Problems Problem Noted Date Diagnosed Date Resolved Date 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 04/26/2023 10/28/2023 H/O gestational diabetes in prior , currently 01/29/2014 10/09/2014 Overview: Was diet controlled Early glucola-elevated; 3hr gtt normal- 1 value elevated, 1 value 1 pt from abnormal Gestational diabetes 10/10/2012 014 Overview: Needs nutrition consult (done) and begin checking BS's QID Low-lying placenta 07/20/2012 04/21/201 4 Overview: 07/19/12: placenta 16mm from internal os. F/u on 20wk scan. 08/09/12. Placenta well away from cervical os on anatomy scan. Carrier or suspected carrier of group B Streptococcus 05/09/2012 01/29/2014 Overview: <10,000 colonies GBS in urine at NOB visit-Rx for Penicillin -JENNIFER nv- 06/17-wnl IV abx in labor Encounter for supervision of other normal 05/06/2012 10/09/2014 Overview: Flu vaccine administered 06/26/2014 Mayra Bedoya RN ICD-10 update of inactive term documented as of this encounter (statuses as of 01/21/2024) Immunizations Name Administration Dates Next Due COVID-19 mRNA, LNP-s, No Pre serve, 2-Dose Series ([employer]) 08/18/2021,01/06/2021,12/16/2020 Hepatitis B Vaccine, Recombi nant, Adjuvanted, 20 mcg/mL (Heplisav-B) 10/28/2023,04/26/2023 Seasonal Influenza, Split, I IV3, With Preserve, Inj 06/26/2014,07/05/2012 TDAP (age 10 and older)(Boostrix) 04/26/2023,10/2012 documented as of this encounter Social History Tobacco Use Types Packs/Day Years Used Date Smoking Tobacco: Former Cigarettes 1 5 0 11/11/2003 - 11/11/2008 Smokeless Tobacco: Never Alcohol Use Standard Drinks/Week Comments No 0 (1 standard drink = 0.6 oz pur e alcohol) AUDIT-C Answer Date Recorded Frequency of Alcohol Consumption Never 05/30/2020 Average Number of Drinks Not on file 020 Frequency of Binge Drinking Not on file 05/12 PHQ-2 Answer Date Recorded PHQ Adult Total Score 4 01/05/2024 Hunger Vital Sign Answer Date Recorded Within the past 12 months, y ou worried that your food would run out before you got the money to buy more. Never true 11/30/19 24 Within the past 12 months, t he food you bought just didn't last and you didn't have money to get more. Never true 11/30/2023 Sex and Gender Information Value Date Recorded Sex Assigned at Female 04/29/2020 5:53 PM EDT Gender Identity Female 04/29/2020 5:53 PM EDT Sexual Orientation Straight 04/29/2020 5: 53 PM EDT Job Start Date Occupation Industry Not on file Not on file Not on file Travel History Travel Start Travel End [facility] 01/09/2024 01/13/2024 documented as of this encounter Plan of Treatment Upcoming Encounters Date Type Department Care Team (Late st Contact Info) Description 01/24/2024 1:30 PM EDT Telemedicine Psychology, [place] [address] [place] [address] Mabel Reed LCSW [address] [place] [address] 02/03/2024 9:45 AM EDT Imaging [facility] [address] [facility] [place] [address] 02/17/2024 12:30 PM EDT Office Visit Gastroenterology, [facility] [address] [place] [address] Herminia Sun CRNP [address] [place] [address] 03/29/2024 11:00 AM EDT Telemedicine Psychiatry, [place] [address] [place] [address] Za Barrera CRNP [address] [place] [id number] 05/01/2024 1:00 PM EDT Office Visit Dermatology [address] [place] [address] Rukhsana Segura PA-C [address] [place] [address] [place] [address] 05/30/2024 11:00 AM EDT Imaging Radiology [facility] [address] [place] [address] 10/31/2024 1:40 PM EST Office Visit Family Practice [facility] [address] [place] [address] Rukhsana Torres DO [address] [place] [address] 01/26/2025 2:00 PM EDT Office Visit Gynecology/Obstetrics [facility] [address] [place] [address] Rosemary Ocampo CRNP [address] [place] [id number] Pending Results Name Type Priority Associated Diagnoses Date /Time CBC WITH WBC DIFFERENTIAL AND ANEMIA REFLEX WORKUP Lab Routine Irregular intermenstrual bleeding 01/21/2024 2:19 PM EDT PROLACTIN Lab Routine Irregular intermenstrual bleeding 01/21/2024 2:19 PM EDT TSH WITH FREE T4 IF INDICATED Lab Routine Irregular intermenstrual bleeding 01/21/2024 2:19 PM EDT ANEMIA CBC Lab Routine Irregular intermenstrual bleeding 01/21/2024 2:19 PM EDT DIFFERENTIAL, AUTOMATED Lab Routine Irregular intermenstrual bleeding 01/21/2024 2:19 PM EDT ANEMIA REFLEX CHEMISTRY HOLD Lab Routine Irregular intermenstrual bleeding 01/21/2024 2:19 PM EDT Health Maintenance Due Date Last Done Comments HPV/Co-Test 2010 COVID-19 Vaccine ( season) 2023 08/18/2021, 01/06/2021, 12/16/2020 Lipid Panel 11/12/2023 11/12/2018 Cervical Cancer Screening 11/20/2023 Pap Smear 11/20/2023 11/20/2020, 11/11, 11/26/2016, Additional history exists Influenza Vaccine (FLU shot) (Season Ended) 2024 06/26/2014, 07/05/2012 Mammogram 12/07/2024 12/07/2023, 11/12, 01/02/2022, Additional history exists Depression Screening 01/04/2025 01/05/2024 Diabetes Screening 11/22/2026 11/22/2023, 0 05/27/2023, 05/07/2023, Additional history exists DTaP,Tdap,and Td Vaccines (3 - Td or Tdap) 04/26/2033 04/26/2023, 12/09/2012 Hepatitis B Completed 10/28/2023, 04/26/2023 GARDASIL-HPV IMMUNIZATION SERIES Aged Out No longer eligible based on patient's age to complete this topic MENINGOCOCCAL (MENACTRA/MENVEO) Aged Out No longer eligible based on patient's age to complete this topic Pneumococcal Vaccine: Pediatrics (0 to 5 Years) and At-Risk Patients (6 to 64 Years) Aged Out No longer eligible based on patient's age to complete this topic documented as of this encounter Medical Devices Implanted Type Area Shirt Creaser Device Identifier Shelf Expiration Date Model / Serial / Lot Device Perm Cntrl [id number] - [id number] Implanted:Qty: 1 on 12/13/2014 by Goklu Scott DO at [facility] Right: Fallopian Tube [employer] 07/15/2016 [id number] / / [id number] Device Perm Cntrl [id number] - [id number] Implanted:Qty: 1 on 12/13/2014 by Gokul Scott DO at [facility] Left: Fallopian Tube [employer] 10/15/2016 [id number] / / [id number] documented as of this encounter Visit Diagnoses Diagnosis Irregular intermenstrual bleeding Metrorrhagia documented in this encounter Advance Directives Latest Code Status on File Code Status Date Activated Date Inactivated Comments Full Code 12/13/2014 10:35 AM 12/13/2014 4:05 PM This o rder reflects the patients wishes and were consensually agreed upon. Care Teams Poultry Packer Relationship Specialty Start Date End Date Rukhsana Torres DO [address] [place] [address] PCP - General Family Medicine 06/14/23 documented as of this encounter
--- OUTSIDE RECORDS SUMMARY | 2024-05-24 04:15 | External Medical Summary | Summary of Care ---
Author Name Unknown Organization [facility] Address [address] [place] [address] Phone [phone] Care Team Providers Care Voip Engineer Name Role Phone Rukhsana Torres Sandra PATEL Primary Care Provider [phone] Reason for Visit * Reason Comments Completion Of Treatment * Evaluate & Treat - Unlimited Visits (Within 10 days (routine)) - Closed Specialty Diagnoses / Procedures Referred By Contac t Referred To Contact Psychology Diagnoses JOSE (generalized anxiety disorder) Mild episode of recurrent major depressive disorder (HCC) Ludwig Dao DO [address] [place] [id number] Referral ID Status Reason Start Date Expiration Date V isits Requested Visits Authorized [id number] Closed Specialty Services Required 04/26/[phone] Encounter Details Date Type Department Care Team (Late st Contact Info) Description 02/24/2024 1:30 PM EDT Telemedicine [facility] [address], [place] [id number] Mabel Reed [facility] [address] [place] [address] Generalized anxiety disorder with panic attacks*; Specific phobia; Avoidant/restrictive food intake disorder Allergies No known active allergiesdocumented as of this encounter (statuses as of 05/15/2024) Medications Medication Sig Dispensed Refills Start Date End Date Status Oxybutynin Chloride ER 10 MG Oral Tablet Extended Release 24 HourIndications:OAB (overactive bladder) Take 1 Tablet by mouth in the morning. Do not cut, crush or chew. 90 Tablet 3 05/20/2023 Active Additional Information Patient not taking.Reported on 08/12/2023 One Daily Multivitamin Women Oral Tablet Take 1 Tablet by mouth daily. Active Famotidine 20 MG Oral Tablet (Pepcid)Indications [...] 6 HOURS NEEDED FOR NAUSEA 24 Tablet 08/25/2023 Active Additional Information Patient not taking.Reported on 08/27/2023 Multi-Vitamins Oral Tablet Take 1 Tablet by mouth in the morning. Active Terbinafine HCl 1 % External Cream (LamISIL AT)Indications:Skin lesions Apply topically to affected area daily. To affected area. 12 g 10/28/2023 Active Additional Information Patient not taking.Reported on 01/19/2024 Vitamin B 12 500 MCG Oral Tablet Take by mouth. Activ e Vitamin D (Cholecalciferol) 50 MCG (2000 UT) Oral Capsule Take by mouth. Active documented as of this encounter (statuses as of 05/15/2024) Active Problems Problem Noted Date Diagnosed Date Chronic fatigue 04/26/2023 Chronic neck pain 04/26/2023 Gastroesophageal reflux disease without esophagi tis 04/26/2023 OAB (overactive bladder) 04/26/2023 JOSE (generalized anxiety disorder) 04/26/2023 Patellofemoral syndrome of right knee 04/26/2023 Obesity, Class I, BMI 30.0-34.9 (see actual BMI) 12/30/2021 NSVT (nonsustained ventricular tachycardia) 10/2018 S/P LEEP (loop electrosurgical excision procedur e) 05/06/2012 Hyperinsulinism 05/06/2012 documented as of this encounter (statuses as of 05/15/2024) Resolved Problems Problem Noted Date Diagnosed Date Resolved Date 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 04/26/2023 10/28/2023 H/O gestational diabetes in prior , currently 01/29/2014 10/09/2014 Overview: Was diet controlled Early glucola-elevated; 3hr gtt normal- 1 value elevated, 1 value 1 pt from abnormal Gestational diabetes 10/10/201201/29/2 014 Overview: Needs nutrition consult (done) and begin checking BS's QID Low-lying placenta 07/20/2012 4 Overview: 07/19/12: placenta 16mm from internal [...] as of this encounter (statuses as of 05/15/2024) Immunizations Name Administration Dates Next Due COVID-19 mRNA, LNP-s, No Pre serve, 2-Dose Series (Pfizer) 08/18/2021,01/06/2021,12/16/2020 Hepatitis B Vaccine, Recombi nant, Adjuvanted, [...] Answer Date Recorded PHQ Adult Total Score 2 02/24/2024 Hunger Vital Sign Answer Date Recorded Within the past 12 months, y ou worried that your food would run out before you got the money to buy more. Never true 11/30/19 24 Within the past 12 months, t he food you bought just didn't last and you didn't have money to get more. Never true 11/30/2023 Childcare Answer Date Recorded Do you feel overwhelmed with taking care of a child, family member or friend? No 11/30/2023 Does your family need help f inding childcare? (Household - for ages 0-17 years) Not on file 11/30/2023 Clothing Answer Date Recorded Have you been unable to get clothing when it was really needed? No 11/30/2023 Is your family able to get c lothes or diapers when needed? (Household - for ages 0-17 years) Not on file 11/30/2023 Personal Safety Answer Date Recorded Do you feel unsafe or have concerns for your saf ety? No 11/30/2023 Do you have concerns for you r family's safety? (Household - for ages 0-17 years) Not on file 11/30/2023 Utilities Answer Date Recorded Do you have trouble paying y our heating, water, or electric bill? No 11/30/2023 Is your family able to pay t he heat, water, or electric bill? (Household - for ages 0-17 years) Not on file 11/30/2023 Does your family have access to good internet? (Household - for ages 0-17 years) Not on file 11/30/2023 Employment Status Answer Date Recorded Are you unemployed or without regular income? No 11/30/2023 Does the household have a re gular source of income? (Household - for ages 0-17 years) Not on file 11/30/2023 Social Connections Answer Date Recorded How often do you feel lonely or isolated from th ose around you? Rarely 11/30/2023 Financial Resource Strain Answer Date R ecorded Do you have any trouble payi ng for your medications, or do you think you might in the future? No 11/30/2023 Does your family have troubl e paying for medicine? (Household - for ages 0-17 years) Not on file 11/30/2023 Transportation Needs Answer Date Record ed READ ONLY Do you have troubl e getting a ride to medical visits or work? Never True 11/30/2023 Does your family have a hard time getting a ride to doctors visits? (Household - for ages 0-17 years) Not on file 11/30/2023 Has lack of transportation k ept you from medical appointments, meetings, work, or from getting things needed for daily living? Check all that apply. (Adult - for ages 18 years and over) Not on file 11/30/2023 Do you (or your family) have trouble finding or paying for a ride (transportation)? (Household - for ages 0-17 years) Not on file 11/30/2023 Housing Stability Answer Date Recorded Do you currently live in a s helter or have no steady place to sleep at night? No 11/30/2023 READ ONLY Do you think you a re at risk of becoming homeless? No 11/30/2023 Does your family worry about paying for your home or becoming homeless? (Household - for ages 0-17 years) Not on file 0 11/30/2023 Are you homeless or worried that you might be in the future? (Adult - for ages 18 years and over) Not on file Are you (or your family) becca eless or worried that you might be in the future? (Household - for ages 0-17 years) Not on file Food Insecurity Answer Date Recorded Do you need food for this week? No 11/30/2023 Are you able to get enough f ood for your family? (Household - for ages 0-17 years) Not on file 11/30/2023 Does your family need food t his week? (Household - for ages 0-17 years) Not on file 11/30/2023 Do you always have enough fo od for your family? (Household - for ages 0-17 years) Not on file 11/30/2023 Sex and Gender Information Value Date Recorded Sex Assigned at Female 04/29/2020 5:53 PM EDT Gender Identity Female 04/29/2020 5:53 PM EDT Sexual Orientation Straight 04/29/2020 5: 53 PM EDT Job Start Date Occupation Industry Not on file Not on file Not on file documented as of this encounter Progress Notes * Mabel Reed LCSW - 02/25/2024 3:55 PM EDT THERAPY/PSYCHOLOGY DISCHARGE SUMMARY 1. Summary of Services provided: Individual Therapy 2. Outcomes and referrals: Patient improved; is no longer in need of treatment; will continue care with PCP 3. Relevant psychosocial status: stable Plan of care at time of discharge including referrals: Use crisis plan as needed Can consult us in the future as clinically indicated Patient and/or family has access to this document through [facility] * Mabel Reed LCSW - 02/24/2024 1:30 PM EDT Patient location: HOME. I was not in a hospital or clinic location. After connecting through [facility], patient was verified with two unique identifiers. Patient (or authorized legal contact representative) was then informed that this was a Telemedicine visit and being conducted confidentially over secure lines. Methods to assure confidentiality were taken. Patient acknowledged consent and understanding of privacy and security of the Telemedicine visit. The patient agreed to participate. My office door was closed. No one else was in the room with me. I informed the patient that I have reviewed their record in [facility] and presented the opportunity for them to ask any questions regarding the visit today. The patient agreed to participate. Provider reviewed elements of Outpatient Services Description including limits of confidentiality, how to contact the department, risks and benefits of treatment and consent for treatment. Start Time: 1:30 PM Stop Time: 2:27 PM Total direct [id number] time: 57 minutes Confirm patient's location (and address if different from the home address documented in [facility]) at the time of this appointment: Home location confirmed ADULT THERAPY PROGRESS NOTE Juan Avila[address] [address] 02/24/2024 1:30 PM TYPE OF VISIT: Individual DIAGNOSIS: Generalized Anxiety Disorder with panic attacks; Specific Phobia; Avoidant/Restrictive Food Intake Disorder REASON FOR FOLLOW-UP: Individual therapy Session #: 5 SESSION FOCUS: Coping skills for anxiety SESSION SUMMARY/NOTES: Patient reports a decrease in anxiety symptoms, but an increase in depression symptoms since last session. She attributes this to thinking about things which has caused sleep disturbance and fatigue. 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 Provider assisted patient with some problem-solving strategies to help manage her stressors such as positive self-talk and scheduling tasks. However, patient acknowledges that she is stubborn and although she knows what to do to manage her anxiety better, she chooses not to do those things as she believes that she has everything under control until she realizes she didn't consider everything that needs to go into completing a task. Patient expresses that her anxiety is better and as such is ready to discontinue therapyservices at this time. Provider reminded her that she could come back to therapy if warranted and she was receptive. PROGRESS TOWARDS GOALS: Patient has identified practicing positive self-talk and self-care to help manage anxiety. She reports that her anxiety has improved overall, and that she is ready to discontinue therapy services at this time. Objective Measures: Jose-7 Question 02/24/2024 12:06 PM EDT - Filed by Patient Over the last 2 weeks, how often have you been bothered by the following problems? Feeling nervous, anxious, or on edge Several days Not being able to stop or control worrying Not at all Worrying too much about different things Not at all Trouble relaxing Not at all Being so restless that is hard to sit still Not at all Becoming easily annoyed or irritable More than half of the days Feeling afraid as if something awful might happen Not at all Total score of all questions (range: 0 - 21) 3 (Minimal) Phq9-Depression Question 02/24/2024 12:07 PM EDT - Filed by Patient Over the last two weeks, how often have you been bothered by any of the following problems? Little interest or pleasure in doing things Not at all Feeling down, depressed or hopeless Not at all Over the last two weeks, how often have you been bothered by any of the following problems? Trouble falling or staying asleep, or sleeping too much Several days Feeling tired or having little energy Several days Poor appetite or overeating Not at all Feeling bad about yourself - or that you are a failure, or have let yourself or your family down Not at all Trouble concentrating on things, such as reading the newspaper or watching television Not at all Moving or speaking so slowly that other people could have noticed. Or the opposite - being so fidgety or restless that you have been moving around a lot more than usual Not at all Thoughts that you would be better off , or of hurting yourself Not at all Question 1 score (range: 0 - 3) 0 Question 2 score (range: 0 - 3) 0 Question 3 score (range: 0 - 3) 1 Question 4 score (range: 0 - 3) 1 Question 5 score (range: 0 - 3) 0 Question 6 score (range: 0 - 3) 0 Question 7 score (range: 0 - 3) 0 Question 8 score (range: 0 - 3) 0 Question 9 score (range: 0 - 3) 0 Sum of all PHQ9 questions. (range: 0 - 27) 2 (No Depression) Myc Visit Accident Related Question Question 02/24/2024 12:07 PM EDT - Filed by Patient Is this visit related to an accident? (i.e work, motor vehicle) No INTERVENTION: Cognitive Behavioral Therapy (CBT), Motivational Interviewing , and Supportive Therapy PATIENT EDUCATION: Verbal & written MENTAL STATUS AND BEHAVIORAL OBSERVATIONS: Appearance: within normal limits and casually dressed Behavior: appropriate, cooperative, and pleasant Speech: goal directed, normal pitch, normal rate, and normal volume Mood: elevated Affect: mood-congruent Thought Process: within normal limits Thought Content: Delusions: No Hallucinations: No Obsessions: No Homicidal: No Suicidal: No Sensorium: alert and oriented to person, place, time and situation Cognition: grossly intact Insight: good Judgment: good Suicide/Homicidal Assessment Validated Screening and Assessment Measures [place] Suicide Severity Rating Scale Results 02/24/2024 13:42 [place] SUICIDE SEVERITY RATING SCALE (C-SSRS) Have you wished you were or wished you could go to sleep and not wake up? (In the Past Month or Since Last Visit) No Have you had any actual thoughts of killing yourself? (In the Past Month or Since Last Visit) No Have you been thinking about how you might do this? (In the Past Month or Since Last Visit) No Have you had thoughts and had some intention of acting on them? (In the Past Month or Since Last Visit) No Have you started to work out or worked out the details of how to kill yourself? Do you intend to carry out this plan? (In the Past Month or Since Last Visit) No Have you ever done anything, started to do anything, or prepared to do anything to end your life? (Lifetime) No Was this within the past 3 months? No Level of Risk No Risk Identified Protective Factors Social Support/Family;Future Plans;Hopeful attitude and or beliefs;Supervision and monitoring available;Access to appropriate services;Willing to participate in less restrictive means of help;Identifies reasons for living;Cares about job/school;Help-Seeking Behaviors Risk Factors Access to Weapons;Anxiety Crisis Plan: see Crisis Plan in Treatment Plan Yes Use Psych General Crisis Plan when [place] is No Risk or Low Risk No Use John-Brown Suicide Safety Plan when [place] is Moderate or High Risk, or whenever clinical judgment would indicate need for full crisis plan to be done. FOLLOW-UP PLAN: Return: 0 weeks *Patient has decided to discontinue therapy services at this time. Action Plan: 1. Continue Individual Therapy 2. Continue medication management with N/A. Treatment plan reviewed with the patient. Patient voices understanding and concurs with plan. Mabel Reed LCSW Division of Psychiatry & Behavioral Medicine [facility] [phone] documented in this encounter Plan of Treatment Upcoming Encounters Date Type Department Care Team (Late st Contact Info) Description 05/24/2024 10:30 AM EDT Imaging Radiology [facility] 2nd [facility] [address] [place] [address] 10/31/2024 1:40 PM EST Office Visit Family Practice [facility] [address] [place] [address] Rukhsana Torres, [address] [place] [address] 01/26/2025 2:00 PM EDT Office Visit Gynecology/Obstetrics Tanika Raman [address] [place] [address] BackerRosemary CRNP [address] [place] [address] Scheduled Referrals Name Type Priority Associated Diagnoses Orde r Schedule ADULT/PEDS PSYCHOLOGY REFERRAL OP Referral Within 10 days (routine) JOSE (generalized anxiety disorder) Mild episode of recurrent major depressive disorder (HCC) Ordered: 04/26/2023 Health Maintenance Due Date Last Done Comments HPV/Co-Test 2010 COVID-19 Vaccine ( season) 2023 08/18/2021, 01/06/2021, 12/16/2020 Lipid Panel 11/12/2023 11/12/2018 Cervical Cancer Screening 11/20/2023 Pap Smear 11/20/2023 11/20/2020, 11/11, 11/26/2016, Additional history exists Influenza Vaccine (FLU shot) (#1) 2024 06/26/2014, 07/05/2012 Mammogram 12/07/2024 12/07/2023, 11/12, 01/02/2022, Additional history exists Depression Screening 02/23/2025 02/24/2024, 01/24/20 24 Diabetes Screening 11/22/2026 11/22/2023, 0 05/27/2023, 05/07/2023, Additional history exists DTaP,Tdap,and Td Vaccines (3 - Td or Tdap) 04/26/2033 04/26/2023, 12/09/2012 Hepatitis B Vaccine Completed 10/28/2023, 3 HPV (Gardasil) Vaccine Aged Out No lo nger eligible based on patient's age to complete this topic MENINGOCOCCAL (MENACTRA/MENVEO) Aged Out No longer eligible based on patient's age to complete this topic Pneumococcal Vaccine: Pediatrics (0 to 5 Years) and At-Risk Patients (6 to 64 Years) Aged Out No longer eligible based on patient's age to complete this topic documented as of this encounter Medical Devices Implanted Type Area Bin Cleaner Device Identifier Shelf Expiration Date Model / Serial / Lot Device Perm Cntrl [id number] - [id number] Implanted:Qty: 1 on 12/13/2014 by Gokul Scott DO at OR [facility] Right: Fallopian Tube [employer] 07/15/2016 [id number] / / [id number] Device Perm Cntrl [id number] - [id number] Implanted:Qty: 1 on 12/13/2014 by Gokul Scott DO at OR [facility] Left: Fallopian Tube [employer] 10/15/2016 [id number] / / [id number] documented as of this encounter Visit Diagnoses Diagnosis Generalized anxiety disorder with panic attacks- Primary Specific phobia Other isolated or specific phobias Avoidant/restrictive food intake disorder documented in this encounter Advance Directives * Full Code (Latest Code Status on File) Date Activated Date Inactivated Comments 12/13/2014 10:35 AM 12/13/2014 4:05 PM This order re flects the patients wishes and were consensually agreed upon. Care Teams Voip Engineer Relationship Specialty Start Date End Date Rukhsana Torres DO [address] [place] [address] PCP - General Family Medicine 06/14/23 documented as of this encounter
--- OUTSIDE RECORDS SUMMARY | 2024-05-24 04:15 | External Medical Summary | Summary of Care ---
Author Name Unknown Organization [facility] Address [address] [place] [address] Phone [phone] Care Team Providers Care Cashier General Name Role Phone MelissaBriceroula Flores DO Primary Care Provider [phone] Encounter Details Date Type Department Care Team (Late st Contact Info) Description 01/05/2024 1:30 PM EDT Telemedicine [facility] [address] [place] [address] Mabel Reed, [facility] [address] [place] [address] Generalized anxiety disorder with panic attacks*; Specific phobia; Avoidant/restrictive food intake disorder Allergies No known active allergiesdocumented as of this encounter (statuses as of 01/26/2024) Medications Medication Sig Dispensed Refills Start Date [...] Additional Information Patient not taking.Reported on 01/19/2024 documented as of this encounter (statuses as of 01/26/2024) Active Problems Problem Noted Date Diagnosed Date [...] as of this encounter (statuses as of 01/26/2024) Resolved Problems Problem Noted Date Diagnosed Date [...] at NOB visit-Rx for Penicillin -JENNIFER nv- 9/7-wnl IV abx in labor Encounter for supervision of other normal 05/06/2012 10/09/2014 Overview: Flu vaccine administered 06/26/2014 Mayra Bedoya RN ICD-10 update of inactive term documented as of this encounter (statuses as of 01/26/2024) Immunizations Name Administration Dates Next Due COVID-19 mRNA, LNP-s, No Pre serve, 2-Dose Series ([employer]) 08/18/2021,01/06/2021,12/16/2020 Hepatitis B Vaccine, Recombi nant, Adjuvanted, [...] Answer Date Recorded PHQ Adult Total Score 0 01/24/2024 Hunger Vital Sign Answer Date Recorded Within [...] file Travel History Travel Start Travel End [facility] 01/09/2024 01/13/2024 documented as of this encounter Progress Notes * Mabel Reed, STRATEGIC MARKETING MANAGER - 01/05/2024 1:32 PM EDT Patient location: HOME. I was not in a hospital or clinic location. After connecting through [employer], patient was verified with two unique identifiers. Patient (or authorized legal phlebotomy services representative) was then informed that this was [...] that I have reviewed their record in [facility] and presented the opportunity for them to ask any questions regarding the visit today. The patient agreed to participate. Provider reviewed elements of Outpatient Services Description including limits of confidentiality, how to contact the department, risks and benefits of treatment and consent for treatment. Start Time: 1:32 PM Stop Time: 2:35 PM Total direct unep-yf-zvfu time: 63 minutes Confirm patient's location (and address if different from the home address documented in [facility]) at the time of this appointment: Home location confirmed ADULT THERAPY PROGRESS NOTE [place] [address] 01/05/2024 1:32 PM TYPE OF VISIT: Individual DIAGNOSIS: Generalized Anxiety Disorder with panic attacks; Specific Phobia; Avoidant/Restrictive Food Intake Disorder REASON FOR FOLLOW-UP: Individual therapy Session #: 3 SESSION FOCUS: Coping skills for anxiety SESSION SUMMARY/NOTES: Patient reports a decrease in anxiety and depression symptoms since last session. She attributes this to being "too busy and in her routine" to worry. Provider reviewed exposure therapy/assigned video on rewiring your brain in relation to her specific phobia of vomit. Patientshares that she watched a show that had someone about to vomit, but didn't watch in its entirety. She indicates that logically she knows what needs to be done to face her fears and manage anxiety. However, she lacks the motivation to change. Yet, patient relays that she does not want her children to develop her symptoms and therefore is willing to make changes. Provider assisted patient with problem- solving her "perfectionism" and reaction when things aren't perfect so that her kids aren't affected negatively. Patient was highly receptive to the problem- solving solutions discussed and states she will be more mindful to implement them going forward. PROGRESS TOWARDS GOALS: Patient continues to discuss and learn coping skills for anxiety so that she can implement them when feeling anxious. Objective Measures: Jose-7 Question 01/05/2024 1:25 PM EDT - Filed by Patient Over the last 2 weeks, how often have you been bothered by the following problems? Feeling nervous, anxious, or on edge Several days Not being able to stop or control worrying Several days Worrying too much about different things Several days Trouble relaxing Not at all Being so restless that is hard to sit still Not at all Becoming easily annoyed or irritable Nearly every day Feeling afraid as if something awful might happen Several days Total score of all questions (range: 0 - 21) 7 (Mild) Phq9-Depression Question 01/05/2024 1:26 PM EDT - Filed by Patient Over [...] days Feeling tired or having little energy More than half the days Poor appetite or overeating Several days Feeling bad about yourself - or that [...] Question 4 score (range: 0 - 3) 2 Question 5 score (range: 0 - 3) 1 Question 6 score (range: 0 - 3) 0 Question 7 score (range: 0 - 3) 0 Question 8 score (range: 0 - 3) 0 Question 9 score (range: 0 - 3) 0 Sum of all PHQ9 questions. (range: 0 - 27) 4 (No Depression) Myc Visit Accident Related Question Question 01/05/2024 1:26 PM EDT - Filed by Patient Is this visit related to an accident? (i.e work, motor vehicle) No INTERVENTION: Cognitive Behavioral Therapy (CBT), Motivational Interviewing , Problem-solving , and Supportive Therapy PATIENT EDUCATION: Verbal & written MENTAL STATUS AND BEHAVIORAL OBSERVATIONS: Appearance: within normal limits and casually dressed Behavior: appropriate, cooperative, and pleasant Speech: goal directed, normal pitch, normal rate, and normal volume Mood: anxious Affect: mood-congruent Thought Process: within normal limits Thought Content: Delusions: No Hallucinations: No Obsessions: No Homicidal: No Suicidal: No Sensorium: alert and oriented to person, place, time and situation Cognition: grossly intact Insight: good Judgment: fair Suicide/Homicidal Assessment Validated Screening and Assessment Measures [place] Suicide Severity Rating Scale Results 01/05/2024 13:35 [place] SUICIDE SEVERITY RATING SCALE (C-SSRS) Have [...] for living;Cares about job/school;Help-Seeking Behaviors Risk Factors Anxiety;Access to Weapons Crisis Plan: see Crisis Plan in Treatment Plan Yes Use Psych General Crisis Plan when [place] is No Risk or Low Risk No Use John-Brown Suicide Safety Plan when [place] is Moderate or High Risk, or whenever clinical judgment would indicate need for full crisis plan to be done. FOLLOW-UP PLAN: Return: 3 weeks Action Plan: 1. Continue Individual Therapy 2. Continue medication management with N/A. Treatment plan reviewed with the patient. Patient voices understanding and concurs with plan. Mabel Reed LCSW Division of Psychiatry & Behavioral Medicine [facility] [phone] documented in this encounter Plan of Treatment Upcoming Encounters Date Type Department Care Team (Late st Contact Info) Description 02/03/2024 9:45 AM EDT Imaging [facility] 2nd Floor [address] [address] 02/24/2024 1:30 PM EDT Telemedicine Psychology, [place] [address] [place] [address] Mabel Reed LCSW [address] [place] [address] 03/29/2024 11:00 AM EDT Telemedicine Psychiatry, [place] [address] [place] [address] Za Barrera CRNP [address] [place] [phone] 05/01/2024 1:00 PM EDT Office Visit Dermatology [address] [place] [id number] Rukhsana Segrua PA-C [address] [place] [address] [place] [address] 05/30/2024 10:45 AM EDT Imaging Radiology [facility] [address] [place] [address] 10/31/2024 1:40 PM EST Office Visit Family Practice [facility] [address] [place] [address] Rukhsana Torres DO [address] [place] [address] 01/26/2025 2:00 PM EDT Office Visit Gynecology/Obstetrics [facility] [address] [place] [address] Rosemary Ocampo CRNP [address] [place] [address] Health Maintenance Due Date Last Done Comments HPV/Co-Test 2010 COVID-19 Vaccine ( season) 2023 08/18/2021, 01/06/2021, 12/16/2020 Lipid Panel 11/12/2023 11/12/2018 Cervical Cancer Screening 11/20/2023 Pap Smear 11/20/2023 11/20/2020, 11/11, 11/26/2016, Additional history exists Influenza Vaccine (FLU shot) (Season Ended) 2024 06/26/2014, 07/05/2012 Mammogram 12/07/2024 12/07/2023, 11/12, 01/02/2022, Additional history exists Depression Screening 01/23/2025 01/24/2024 Diabetes Screening 11/22/2026 11/22/2023, 0 05/27/2023, 05/07/2023, [...] this encounter Medical Devices Implanted Type Area Dental Assistant Teacher Device Identifier Shelf Expiration Date Model / Serial / Lot Device Perm Cntrl [id number] - [id number] Implanted:Qty: 1 on 12/13/2014 by Gokul Scott DO at OR [facility] Right: Fallopian Tube [employer] 07/15/2016 [id number] / / [id number] Device Perm Cntrl [id number] - [id number] Implanted:Qty: 1 on 12/13/2014 by Gokul Scott DO at OR [facility] Left: Fallopian Tube [employer] 10/15/2016 [id number] / / [id number] documented as of this encounter Visit Diagnoses Diagnosis Generalized anxiety disorder with panic attacks- Primary Specific phobia Other isolated or specific phobias Avoidant/restrictive food intake disorder documented in this encounter Advance Directives Latest Code Status on File Code Status Date Activated Date Inactivated Comments Full Code 12/13/2014 10:35 AM 12/13/2014 4:05 PM This o rder reflects the patients wishes and were consensually agreed upon. Care Teams Cashier General Relationship Specialty Start Date End Date Rukhsana Torres DO [address] [place] [address] PCP - General Family Medicine 06/14/23 documented as of this encounter
--- OUTSIDE RECORDS SUMMARY | 2024-05-24 04:15 | External Medical Summary | Summary of Care ---
Author Name Unknown Organization [facility] Address [address] [place] [address] Phone [phone] Care Team Providers Care Cost Control Supervisor Name Role Phone MelissaBriceroula Flores DO Primary Care Provider [phone] Encounter Details Date Type Department Care Team (Late st Contact Info) Description 01/24/2024 1:30 PM EDT Telemedicine [facility] [address] [place] [address] [facility] [address] [place] [address] Generalized anxiety disorder with panic [...] mRNA, LNP-s, No Pre serve, 2-Dose Series ([employer]) 08/18/2021,01/06/2021,12/16/2020 Hepatitis B Vaccine, Recombi nant, Adjuvanted, [...] file Travel History Travel Start Travel End [facility] 01/09/2024 01/13/2024 documented as of this encounter Progress Notes * Uatsdin Mabeljaved Banuelos, CORPORATE ASSOCIATE ATTORNEY - 01/24/2024 1:32 PM EDT Patient location: HOME. I was not in a hospital or clinic location. After connecting through [employer], patient was verified with two unique identifiers. Patient (or authorized legal merchandiser retail representative) was then informed that this was [...] that I have reviewed their record in [employer] and presented the opportunity for them to ask any questions regarding the visit today. The patient agreed to participate. Provider reviewed elements of Outpatient Services Description including limits of confidentiality, how to contact the department, risks and benefits of treatment and consent for treatment. Start Time: 1:32 PM Stop Time: 2:33 PM Total direct tdtf-fn-fppt time: 61 minutes Confirm patient's location (and address if different from the home address documented in [facility]) at the time of this appointment: Home location confirmed ADULT THERAPY PROGRESS NOTE [address] [address] 01/24/2024 1:32 PM TYPE OF VISIT: Individual DIAGNOSIS: Generalized Anxiety Disorder with panic attacks; Specific Phobia; Avoidant/Restrictive Food Intake Disorder REASON FOR FOLLOW-UP: Individual therapy Session #: 4 SESSION FOCUS: Coping skills for anxiety SESSION SUMMARY/NOTES: Patient reports a decrease in anxiety and depression symptoms since last session. She attributes this to it being nice out, ability to work in the yard, and that her "seasonal depression has lifted." Provider assisted patient with identifying anxiety triggers related to her children and developing strategies to manage them more effectively. Patient successfully identified her anxiety triggers and strategies to manage them including having her handle certain issueswith the children when her anxiety is intensified. PROGRESS TOWARDS GOALS: Patient reports that being outside working in her yard has been effective in managing anxiety and depression symptoms. Objective Measures: Jose-7 Question 01/24/2024 1:29 PM EDT - Filed by Patient Over [...] of all questions (range: 0 - 21) 6 (Mild) Phq9-Depression Question 01/24/2024 1:29 PM EDT - Filed by Patient Over [...] or staying asleep, or sleeping too much Not at all Feeling tired or having little energy Not at all Poor appetite or overeating Not at all [...] Question 3 score (range: 0 - 3) 0 Question 4 score (range: 0 - 3) 0 Question 5 score (range: 0 - 3) 0 Question 6 score (range: 0 - 3) 0 Question 7 score (range: 0 - 3) 0 Question 8 score (range: 0 - 3) 0 Question 9 score (range: 0 - 3) 0 Sum of all PHQ9 questions. (range: 0 - 27) 0 (No Depression) Myc Visit Accident Related Question Question 01/24/2024 1:30 PM EDT - Filed by Patient Is [...] Suicide/Homicidal Assessment Validated Screening and Assessment Measures [place] Suicide Severity Rating Scale Results 01/24/2024 13:46 [place] SUICIDE SEVERITY RATING SCALE (C-SSRS) Have [...] Yes Use Psych General Crisis Plan when [place] is No Risk or Low Risk No Use [facility] Suicide Safety Plan when [place] is Moderate or High Risk, or whenever clinical judgment would indicate need for full crisis plan to be done. FOLLOW-UP PLAN: Return: 4 weeks Action Plan: 1. Continue Individual Therapy 2. Continue medication management with N/A. Treatment plan reviewed with the patient. Patient voices understanding and concurs with plan. Mabel Reed LCSW Division of Psychiatry & Behavioral Medicine [facility] [phone] documented in this encounter Plan of Treatment Upcoming Encounters Date Type Department Care Team (Late st Contact Info) Description 02/03/2024 9:45 AM EDT Imaging [facility] 2nd Floor Cardiology, [address] [place] [address] 02/24/2024 1:30 PM EDT Telemedicine Psychology, [place] [facility] [address] [place] [address] Mabel Reed LCSW [address] [place] [address] 03/29/2024 11:00 AM EDT Telemedicine Psychiatry, [facility] [address] [place], [place] [id number] Za Barrera CRNP [address] [place] [address] 05/01/2024 1:00 PM EDT Office Visit Dermatology [address] [place] [address] Rukhsana Segura PA-C [address] [place] [address] [place] [address] 05/30/2024 10:45 AM EDT Imaging Radiology [address] [place] [address] 10/31/2024 1:40 PM EST Office Visit Family Practice [address] [place] [address] Rukhsana Torres DO [address] [place] [address] 01/26/2025 2:00 PM EDT Office Visit Gynecology/Obstetrics Tanika Raman [address] [place] [address] Rosemary Ocampo CRNP [address] [place] [address] Health Maintenance Due Date Last Done Comments [...] this encounter Medical Devices Implanted Type Area Handicapper [employer] Device Identifier Shelf Expiration Date Model / Serial / Lot Device Perm Cntrl [id number] - [id number] Implanted:Qty: 1 on 12/13/2014 by Gokul Scott DO at OR [facility] Right: Fallopian Tube [employer] 07/15/2016 [id number] / / [id number] Device Perm Cntrl [id number] - [id number] Implanted:Qty: 1 on 12/13/2014 by Gokul Scott DO at OR [facility] Left: Fallopian Tube [employer] 10/15/2016 [id number] / / [id number] documented as of this encounter Visit Diagnoses [...] and were consensually agreed upon. Care Teams Cost Control Supervisor Relationship Specialty Start Date End Date Rukhsana Torres DO [address] [facility] [place] [address] PCP - General Family Medicine 06/14/23 documented as of this encounter
--- OUTSIDE RECORDS SUMMARY | 2024-05-24 04:15 | External Medical Summary ---
Author Name Unknown Address Unknown Organization K01:LABORATORY [facility] - [address] [place] [address] Laboratory Report Ordering Provider Test Date Status JOSÉ ANTONIO BARBER 01/21/2024 14:19:25 Final Observation Date Value Abnormality Reference (Units ) Status Prolactin [Mass/volume] in Serum or Plasma by 3rd IS 01/21/2024 14:19:25 17.2 4.8-30.0 (ng/mL) Final Prolactin level varies durin g menstrual cycle, with peak level at ovulatory phase.
Postmenopausal women have lower prolactin than premenopausal women. The reference interval for non- premenopausal women is 4.8-30 ng/mL, and for postmenopausal women is 4.0-20.0 ng/mL. Performing Location [facility] - [address] [place] [address]
--- OUTSIDE RECORDS SUMMARY | 2024-05-24 04:15 | External Medical Summary | Summary of Care ---
Author Name Unknown Organization [facility] Address [address] [place] [address] Phone [phone] Care Team Providers Care Income Tax Manager Name Role Phone Rukhsana Torres Sandra PATEL Primary Care Provider [phone] Reason for Visit * Evaluate & Treat - Unlimited Visits (Within 10 days (routine)) - Closed Specialty Diagnoses / Procedures Referred By Contac t Referred To Contact Psychology Diagnoses JOSE (generalized anxiety disorder) Mild episode of recurrent major depressive disorder (HCC) Ludwig Dao DO [address] [place] [address] Referral ID Status Reason Start Date Expiration Date V isits Requested Visits Authorized [id number] Closed Specialty Services Required 04/26/[phone] Encounter Details Date Type Department Care Team (Late st Contact Info) Description 02/24/2024 1:30 PM EDT Telemedicine [facility] [address], [place] [phone] Mabel Reed LCSW [address] [place] [address] Generalized anxiety disorder with panic attacks*; Specific phobia; Avoidant/restrictive food intake disorder Allergies No known active allergiesdocumented as of this encounter (statuses as of 02/25/2024) Medications Medication Sig Dispensed Refills Start Date [...] as of this encounter (statuses as of 02/25/2024) Active Problems Problem Noted Date Diagnosed Date [...] as of this encounter (statuses as of 02/25/2024) Resolved Problems Problem Noted Date Diagnosed Date [...] as of this encounter (statuses as of 02/25/2024) Immunizations Name Administration Dates Next Due COVID-19 [...] family has access to this document through [employer] * Mabel Reed LCSW - 02/24/2024 1:30 PM EDT Patient location: HOME. I was not in a hospital or clinic location. After connecting through [employer], patient was verified with two unique identifiers. Patient (or authorized legal insurance follow up representative) was then informed that this was [...] that I have reviewed their record in [employer] and presented the opportunity for them to ask any questions regarding the visit today. The patient agreed to participate. Provider reviewed elements of Outpatient Services Description including limits of confidentiality, how to contact the department, risks and benefits of treatment and consent for treatment. Start Time: 1:30 PM Stop Time: 2:27 PM Total direct aolf-ld-kyfb time: 57 minutes Confirm patient's location (and address if different from the home address documented in [employer]) at the time of this appointment: Home location confirmed ADULT THERAPY PROGRESS NOTE [facility], [place] [phone] 02/24/2024 1:30 PM TYPE OF VISIT: Individual [...] Suicide/Homicidal Assessment Validated Screening and Assessment Measures [place] Suicide Severity Rating Scale Results 02/24/2024 13:42 [...] Yes Use Psych General Crisis Plan when [place] is No Risk or Low Risk No Use John-Brown Suicide Safety Plan when [place] is Moderate or High Risk, or whenever [...] LCSW Division of Psychiatry & Behavioral Medicine [facility] [phone] documented in this encounter Plan of Treatment Upcoming Encounters Date Type Department Care Team (Late st Contact Info) Description 03/29/2024 11:00 AM EDT Telemedicine Psychiatry Karol Ramirez [address] [place] [phone] Za Barrera CRNP [address] [facility] [place] [phone] 05/01/2024 1:00 PM EDT Office Visit Dermatology [address] [place] [address] Rukhsana Segura PA-C [address] [place] [address] [place] [address] 05/30/2024 10:45 AM EDT Imaging Radiology [facility] [address] [place] [address] 10/31/2024 1:40 PM EST Office Visit Family Practice [facility] [address] [place] [address] Rukhsana Torres DO [address] [place] [address] 01/26/2025 2:00 PM EDT Office Visit Gynecology/Obstetrics [facility] [address] [place] [address] Rosemary Ocampo CRNP [address] [place] [address] Scheduled Referrals Name Type Priority Associated Diagnoses [...] this encounter Medical Devices Implanted Type Area Director Geophysical Laboratory Device Identifier Shelf Expiration Date Model / Serial / Lot Device Perm Cntr [id number] - [id number] Implanted:Qty: 1 on 12/13/2014 by Gokul Scott DO at OR [facility] Right: Fallopian Tube [employer] 07/15/2016 [id number] / / [id number] Device Perm Cntrl [id number] - [id number] Implanted:Qty: 1 on 12/13/2014 by Gokul Scott DO at OR [facility] Left: Fallopian Tube [employer] 10/15/2016 [id number] / / [id number] documented as of this encounter Visit Diagnoses [...] and were consensually agreed upon. Care Teams Income Tax Manager Relationship Specialty Start Date End Date Rukhsana Torres DO [address] [place] [address] PCP - General Family Medicine 06/14/23 documented as of this encounter
--- OUTSIDE RECORDS SUMMARY | 2024-05-24 04:15 | External Medical Summary | Summary of Care ---
Author Name Unknown Organization [facility] Address [address] [place] [address] Phone [phone] Care Team Providers Care Chop Saw Operator Name Role Phone Rukhsana Torres Sandra PATEL Primary Care Provider [phone] Reason for Visit * Reason Comments Completion Of Treatment * Evaluate & Treat - Unlimited Visits (Within 10 days (routine)) - Closed Specialty Diagnoses / Procedures Referred By Contac t Referred To Contact Psychology Diagnoses JOSE (generalized anxiety disorder) Mild episode of recurrent major depressive disorder (HCC) Ludwig Dao DO [address] [place] [address] Referral ID Status Reason Start Date Expiration Date V isits Requested Visits Authorized [id number] Closed Specialty Services Required 04/26/[phone] Encounter Details Date Type Department Care Team (Late st Contact Info) Description 02/24/2024 1:30 PM EDT Telemedicine [facility] [address] [place], [place] [id number] Mabel Reed [facility] [address] [place] [address] Generalized anxiety disorder with panic attacks*; Specific phobia; Avoidant/restrictive food intake disorder Allergies No known active allergiesdocumented as of this encounter (statuses as of 05/21/2024) Medications Medication Sig Dispensed Refills Start Date [...] as of this encounter (statuses as of 05/21/2024) Active Problems Problem Noted Date Diagnosed Date [...] as of this encounter (statuses as of 05/21/2024) Resolved Problems Problem Noted Date Diagnosed Date [...] as of this encounter (statuses as of 05/21/2024) Immunizations Name Administration Dates Next Due COVID-19 [...] family has access to this document through [employer] * Mabel Reed LCSW - 02/24/2024 1:30 PM EDT Patient location: HOME. I was not in a hospital or clinic location. After connecting through [employer], patient was verified with two unique identifiers. Patient (or authorized legal authorization representative) was then informed that this was [...] that I have reviewed their record in [facility] and presented the opportunity for them to ask any questions regarding the visit today. The patient agreed to participate. Provider reviewed elements of Outpatient Services Description including limits of confidentiality, how to contact the department, risks and benefits of treatment and consent for treatment. Start Time: 1:30 PM Stop Time: 2:27 PM Total direct [id number] time: 57 minutes Confirm patient's location (and address if different from the home address documented in [facility]) at the time of this appointment: Home location confirmed ADULT THERAPY PROGRESS NOTE Juan Avila[address] [address] 02/24/2024 1:30 PM TYPE OF VISIT: Individual [...] Suicide/Homicidal Assessment Validated Screening and Assessment Measures Hardin Suicide Severity Rating Scale Results 02/24/2024 13:42 [...] Yes Use Psych General Crisis Plan when Hardin is No Risk or Low Risk No Use John-Brown Suicide Safety Plan when Hardin is Moderate or High Risk, or whenever [...] LCSW Division of Psychiatry & Behavioral Medicine [facility] [phone] documented in this encounter Plan of Treatment Upcoming Encounters Date Type Department Care Team (Late st Contact Info) Description 05/24/2024 10:30 AM EDT Imaging Radiology [facility] 2nd [facility] [address] [place] [address] 10/31/2024 1:40 PM EST Office Visit Family Practice [facility] [address] [place] [address] Rukhsana Torres, [address] [place] [address] 01/26/2025 2:00 PM EDT Office Visit Gynecology/Obstetrics Tanika Raman [address] [place] [address] BackerRosemary CRNP [address] [place] [address] Scheduled Referrals Name Type Priority Associated Diagnoses [...] this encounter Medical Devices Implanted Type Area Test Desk Supervisor Device Identifier Shelf Expiration Date Model / Serial / Lot Device Perm Cntrl [id number] - [id number] Implanted:Qty: 1 on 12/13/2014 by Gokul Scott DO at OR [facility] Right: Fallopian Tube [employer] 07/15/2016 [id number] / / [id number] Device Perm Cntrl [id number] - [id number] Implanted:Qty: 1 on 12/13/2014 by Gokul Scott DO at OR [facility] Left: Fallopian Tube [employer] 10/15/2016 [id number] / / [id number] documented as of this encounter Visit Diagnoses [...] and were consensually agreed upon. Care Teams Chop Saw Operator Relationship Specialty Start Date End Date Rukhsana Torres DO [address] [place] [address] PCP - General Family Medicine 06/14/23 documented as of this encounter
--- OUTSIDE RECORDS SUMMARY | 2024-05-24 04:15 | External Medical Summary | Summary of Care ---
Author Name Unknown Organization [facility] Address [address] [place] [address] Phone [phone] Care Team Providers Care Distribution Field Technician Name Role Phone Rukhsana Torres DO Primary Care Provider [phone] Encounter Details Date Type Department Care Team (Late st Contact Info) Description 01/24/2024 Telephone Gynecology/Obstetrics [facility] [address] [facility] [place] [address] Vi Catalan, [facility] [address] [place] [address] Allergies No known active allergiesdocumented as of this encounter (statuses as of 01/24/2024) Medications Medication Sig Dispensed Refills Start Date [...] Activ e Vitamin D (Cholecalciferol) 50 MCG (1999 UT) Oral Capsule Take by mouth. 0 Active documented as of this encounter (statuses as of 01/24/2024) Active Problems Problem Noted Date Diagnosed Date [...] as of this encounter (statuses as of 01/24/2024) Resolved Problems Problem Noted Date Diagnosed Date [...] as of this encounter (statuses as of 01/24/2024) Immunizations Name Administration Dates Next Due COVID-19 mRNA, LNP-s, No Pre serve, 2-Dose Series ([employer]) 08/18/2021,01/06/2021,12/16/2020 Hepatitis B Vaccine, Recombi nant, Adjuvanted, [...] file Travel History Travel Start Travel End [facility] 01/09/2024 01/13/2024 documented as of this encounter Miscellaneous Notes * Telephone Encounter - Em Garcia LPN - 01/24/2024 11:54 AM EDT ----- Message from Vi Catalan CNM sent at 01/24/2024 11:10 AM EDT ----- Please let patient know her TSH, prolactin, and CBC were normal. Thanks! Vi Catalan CNM documented in this encounter Plan of Treatment Upcoming Encounters Date Type Department Care Team (Late st Contact Info) Description 01/24/2024 1:30 PM EDT Telemedicine Psychology, [place] [address] [place] [address] Mabel Reed LCSW [address] [place] [address] 02/03/2024 9:45 AM EDT Imaging [facility] 2nd Floor Cardiology[address] [place] [address] 02/17/2024 12:30 PM EDT Office Visit [facility]enterology, [facility] [address] Herminia Sun CRNP 132 [facility] [place] [address] 03/29/2024 11:00 AM EDT Telemedicine Psychiatry, [place] [address] [place] [address] Za Barrera CRNP [address] [place] [address] 05/01/2024 1:00 PM EDT Office Visit Dermatology [address] [place] [address] Rukhsana Segura PA-C [address] [place] [address] [place] [address] 05/30/2024 11:00 AM EDT Imaging Radiology [facility] [address] [place] [address] 10/31/2024 1:40 PM EST Office Visit Family Practice [facility] [address] [place] [address] Rukhsana Torres DO [address] [place] [address] 01/26/2025 2:00 PM EDT Office Visit Gynecology/Obstetrics [facility] [address] [place] [address] Rosemary Ocampo CRNP [address] [place] [address] Health Maintenance Due Date Last Done Comments [...] this encounter Medical Devices Implanted Type Area Investment Manager Device Identifier Shelf Expiration Date Model / Serial / Lot Device Perm Cntrl [id number] - [id number] Implanted:Qty: 1 on 12/13/2014 by Gokul Scott DO at [facility] Right: Fallopian Tube [employer] 07/15/2016 [id number] / / [id number] Device Perm Cntrl [id number] - [id number] Implanted:Qty: 1 on 12/13/2014 by Gokul Scott DO at OR [facility] Left: Fallopian Tube [employer] 10/15/2016 [id number] / / [id number] documented as of this encounter Advance Directives Latest Code Status on File Code Status Date Activated Date Inactivated Comments Full Code 12/13/2014 10:35 AM 12/13/2014 4:05 PM This o rder reflects the patients wishes and were consensually agreed upon. Care Teams Distribution Field Technician Relationship Specialty Start Date End Date Rukhsana Torres DO [address] [place] [address] PCP - General Family Medicine 06/14/23 documented as of this encounter
--- OUTSIDE RECORDS SUMMARY | 2024-05-24 04:15 | External Medical Summary | Summary of Care ---
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 * Evaluate & Treat - Unlimited Visits (Within 30 days (routine)) - Pending Review Specialty Diagnoses / Procedures Referred By Annel t Referred To Contact Obstetrics/Gynecology / Gynecology Obstetrics Diagnoses Pap smear for cervical cancer screening Rukhsana Torres DO [address] [facility] [address] Referral ID Status Reason Start Date Expiration Date Visits Requested Visits Authorized [id number] Pending Review Specialty Services Required 10/28/[phone] Encounter Details Date Type Department Care Team (Late st Contact Info) Description 01/19/2024 1:30 PM EDT Office Visit Gynecology/Obstetri [facility] [address] [place] [facility] [address] Vi Catalan, [address] [address] Encounter for annual routine gynecological examination*; Irregular intermenstrual bleeding; Encounter for screening mammogram for malignant neoplasm of breast Allergies No known active allergiesdocumented as of this encounter (statuses as of 01/19/2024) Medications Medication Sig Dispensed Refills Start Date [...] as of this encounter (statuses as of 01/19/2024) Active Problems Problem Noted Date Diagnosed Date [...] as of this encounter (statuses as of 01/19/2024) Resolved Problems Problem Noted Date Diagnosed Date [...] as of this encounter (statuses as of 01/19/2024) Immunizations Name Administration Dates Next Due COVID-19 [...] file Travel History Travel Start Travel End [facility] 01/09/2024 01/13/2024 documented as of this encounter Last Filed Vital Signs Vital Sign Reading Time Taken Comments Blood Pressure 108/70 01/19/2024 1:29 PM EDT Pulse - - Temperature - - Respiratory Rate - - Oxygen Saturation - - Inhaled Oxygen Concentration - - Weight 77.7 kg (171 lb 3.2 oz) 01/19/2024 1:29 P M EDT Height 165.1 cm (5' 5") 01/19/2024 1:29 PM EDT Body Mass Index 28.49 01/19/2024 1:29 PM EDT documented in this encounter Progress Notes * Vi Catalan CNM - 01/19/2024 1:31 PM EDT Cheryl Gabriel 01/19/2024 CC: Annual Exam HPI: The patient is a 43 year old female here for her annual exam. Complaints of: irregular periods Prior to the last year, her periods are occurring regularly every 28 days, lasting 2-3 days, with light flow. Her periods are now occurring irregularly every 4-5 weeks, lasting 2-6 days, with varying flow. +Cramping Reports polyps on her thyroid, states she has had a negative workup. Possible occasional hot flashes, some difficulty sleeping. Feels tired despite sleeping well. Has talked to PCP about this. Sexually active: one male partner control method: Essure (placed 9 years ago) Partner has not had a Vasectomy. She any cramps, intermenstrual bleeding, postcoital bleeding, pelvic pain or dyspareunia, vaginal discharge, vaginal itching. Some difficulty with urinary urgency. Complains of GI concerns, but is seeing GI specialist. She has had no new sexual partners. Performs SBE. Her last Mammogram was 12/07/2023 (BI-RADS category II). She has a hx of abnormal pap smear with LEEP in 2005. Last pap: 11/20/2020 (NILM, HPV negative) Pap: 11/26/2016 (NILM) Pap: 01/29/2014 (NILM) Pap: 02/01/2013 (NILM) 09/21/2011 (NILM) Last colonoscopy was 02/25/2021. Denies family history of breast, ovarian, and colon cancer in any first degree relatives. Mother with blood clots. Denies tobacco and marijuana. 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 Lives with and two sons. Feels safe at home. Denies concern for depression. Goes to therapy foranxiety. Denies SI and HI. Goes almost daily to the gym for exercise. TOTAL PREG....: NA FULL TERM.....: NA PREMATURE.....: NA AB,INDUCED....: NA AB,SPONTANEOUS: NA ECTOPIC.......: NA MULTIPLE : NA LIVING........: NA Date Labor Sex Delivery Anesth Del Comments GA Length Weight Type Site Past Medical History: Diagnosis Date Abnormal Pap smear Gestational diabetes 2012 Past Surgical History: Procedure Laterality Date COLONOSCOPY, DIAGNOSTIC (RECTUM) 02/25/2021 normal / COLONOSCOPY FLEXIBLE PROXIMAL DIAGNOSTIC performed by Franny Olivares MD at ENDOSCOPY [facility] COLPSCPY CERVIX W/LOOP ELECT ? abnormal pap DILATION AND CURETTAGE (D&C) 10/11/2004 D&C EGD, FLEXIBLE, DIAGNOSTIC 11/12/2020 normal bx / ESOPHAGOGASTRODUODENOSCOPY (EGD), FLEXIBLE, TRANSORAL, DIAGNOSTIC performed by Franny Olivares MD at ENDOSCOPY [facility] EGD, W/ENDOSCOPIC US 11/12/2020 fatty liver / ESOPHAGOGASTRODUODENOSCOPY (EGD), FLEXIBLE, TRANSORAL, ENDOSCOPIC ULTRASOUND performed by Franny Olivares MD at ENDOSCOPY [facility] FLUORO HYSTEROSALPINGOGRAM 03/11/2012 HYSTEROSCOPY W/FALLOPIAN IMPLANTS Bilateral 12/13/2014 HYSTEROSCOPY SURGICAL BILATERAL FALLOPIAN TUBE performed by Gokul Scott DO at OR [facility] REMOVAL OF OVARIAN CYST(S) 2004, 2007 several cysts removed x 3; laps REMOVE CERVIX CONE W/LOOP ELECTRODE 10/11/2005 Family Hx: Family History Problem Relation Age of Onset Cancer Mother CLL Renal Hx Mother stones & frequent kidney infections Diabetes Mother Blood Disorder Mother blood clots Other (Other) Father unknown history Diabetes Grandmother (Maternal) Arthritis Grandmother (Maternal) Glaucoma Grandmother (Maternal) Hypertension Grandmother (Maternal) Breast Cancer Grandmother (Maternal) Diabetes Grandfather (Maternal) Stroke Grandfather (Maternal) Breast Cancer Aunt (Maternal) 3 great aunts Diabetes Aunt (Maternal) insulin dependent Genitourinary Disorder Aunt (Maternal) kidney stones Glaucoma Aunt (Maternal) Diabetes Uncle (Maternal) Genitourinary Disorder Uncle (Maternal) kidney stones Mental Disorder Cousin (Unspecified) Schizophrenia Social History Socioeconomic History Marital status: Spouse name: Timo Number of children: 2 Occupational History 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 Employer: [employer] Tobacco Use Smoking status: Former Current packs/day: 0.00 Average packs/day: 1 pack/day for 5.0 years (5.0 ttl pk-yrs) Types: Cigarettes Start date: 11/11/2003 Quit date: 11/11/2008 Years since quittin.1 Smokeless tobacco: Never Vaping Use Vaping Use: Never used Substance and Sexual Activity Alcohol use: No Drug use: No Sexual activity: Yes Partners: Male control/protection: Implant Comment: Essure Social History Narrative Born and raised in [facility] Social Determinants of Health Food Insecurity: No Food Insecurity (11/30/2023) Hunger Vital Sign Worried About Running Out of Food in the Last Year: Never true Ran Out of Food in the Last Year: Never true Medications: Current Outpatient Medications Medication Sig Dispense Refill Famotidine 20 MG Oral Tablet (Pepcid) Take 1 Tablet by mouth in the morning and 1 Tablet before bedtime. 180 Tablet 3 Omeprazole 20 MG Oral Capsule Delayed Release (PriLOSEC) Take 1 Capsule by mouth daily. 90 Capsule 3 Trulance 3 MG Oral Tablet (Plecanatide) Take 3 mg by mouth in the morning. 90 Tablet 3 Multi-Vitamins Oral Tablet Take 1 Tablet by mouth in the morning. Vitamin B 12 500 MCG Oral Tablet Take by mouth. Vitamin D (Cholecalciferol) 50 MCG (2000 UT) Oral Capsule Take by mouth. Oxybutynin Chloride ER 10 MG Oral Tablet Extended Release 24 Hour Take 1 Tablet by mouth in the morning. Do not cut, crush or chew. (Patient not taking: Reported on 08/12/2023) 90 Tablet 3 One Daily Multivitamin Women Oral Tablet Take 1 Tablet by mouth daily. Ondansetron HCl 4 MG Oral Tablet (Zofran) TAKE 1 TABLET BY MOUTH EVERY 6 HOURS NEEDED FOR NAUSEA(Patient not taking: Reported on 08/27/2023) 24 Tablet 0 Terbinafine HCl 1 % External Cream (LamISIL AT) Apply topically to affected area daily. To affectedarea. (Patient not taking: Reported on 01/19/2024) 12 g 0 No current facility-administered medications for this visit. Allergies: Review of patient's allergies indicates: No Known Allergies ROS: Constitutional: No fatigue, no fever/chills, no significant weight change Endocrine: No heat/cold intolerance Breasts: No new breast lumps or masses, no pain or discomfort, no nipple discharge Cardiovascular: No chest pain, no shortness of breath Gastrointestinal: see HPI Urinary: no pelvic pain/discomfort, no dysuria, +urgency, no hesitation, no burning or pain, no hematuria Genital: no irregular menstruation, no vaginal discharge, pruritus or odor, no lesions or irritation Psych: +anxiety, no depression Physical Exam BP 108/70 | Ht 1.651 m (5' 5") | Wt 77.7 kg (171 lb 3.2 oz) | LMP 12/25/2023 (Approximate) | BMI 28.49 kg/m | BSA 1.89 m General: awake, alert, and oriented x 3, NAD Neck: supple without adenopathy, thyroid normal size, non-tender, without nodularity Cardiac: regular rate and rhythm, no murmur Lungs: clear to auscultation bilaterally Abdomen: soft, non-tender, normal bowel sounds, no masses or organomegaly, no inguinal nodes Neuro: no focal motor/sensory deficits, gait normal Breasts: no nipple retraction or dimpling, no nipple discharge or bleeding, no axillary or supraclavicular adenopathy, normal to palpation without dominant masses Pelvic: external genitalia and vagina anatomy within normal limits, no vulvar lesions, no significant vaginal discharge, cervix normal in appearance without lesions or purulent discharge, uterus is normal size, shape, and consistency, adnexa normal bilaterally, no abnormal pelvic masses Furnace Operator And Tender Documentation Provider requested remarketing manager. Name of remarketing manager: Margaret Pop RN Assessment/Plan: (N92.1) Irregular intermenstrual bleeding Plan: CBC WITH WBC DIFFERENTIAL AND ANEMIA REFLEX WORKUP, PROLACTIN, TSH WITH FREE T4 IF INDICATED -Discussed that irregular bleeding is likely due to perimenopause -CBC, TSH, and prolactin ordered -Offered pelvic US; patient politely declined (Z12.31) Encounter for screening mammogram for malignant neoplasm of breast Plan: MAMMOGRAM SCREENING LAUREN BILATERAL (Z01.419) Encounter for annual routine gynecological examination (primary encounter diagnosis) Plan: -Pap due 2025 -Encouraged regular breast self-awareness. Encouraged annual mammograms. Order placed and patient to schedule for 11/2024. -Colonoscopy due at age 45 or sooner, as dictated by GI. 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 Patient here for yearly exam. Complaints: irregular periods Last pap: 2020 neg and neg Last Mammogram: 11/2023 negative Last Dexa: n/a Last Colonoscopy: n/a Type of Contraception: implants Pt here for chlamydia screen. no Have you heard about the Gardasil Vaccine? no Would you be interested in discussing this with your provider? no Does the patient have an advance directed? No, Advance Directive brochure offered, patient declined. My [employer] is a way you can talk to your provider online through e-mail. May I activate it for you? DECLINES Do you need any refills while you are here? no Margaret Pop RN 01/19/2024 1:31 PM documented in this encounter Plan of Treatment Upcoming Encounters Date Type Department Care Team (Late st Contact Info) Description 01/24/2024 1:30 PM EDT Telemedicine [facility] [address] [place] [address] Mabel Reed [facility] [address] [place] [address] 02/03/2024 9:45 AM EDT Imaging [facility] 2nd Floor Cardiology, [place] [address] [place] [address] 02/17/2024 12:30 PM EDT Office Visit Gastroenterology, [facility] [address] [place] [address] Herminia Sun CRNP [address] [place] [address] 03/29/2024 11:00 AM EDT Telemedicine Psychiatry, [facility] [address] [place] [address] Za Barrera CRNP [address] [facility] [place] [address] 05/01/2024 1:00 PM EDT Office Visit Dermatology [address] [place] [address] Rukhsana Segura PA-C [address] [place] [address] [place] [address] 05/30/2024 11:00 AM EDT Imaging Radiology [facility] [address] [place] [address] 10/31/2024 1:40 PM EST Office Visit Family Practice [facility] [address] [place] [address] Rukhsana Torres DO [address] [place] [address] 01/26/2025 2:00 PM EDT Office Visit Gynecology/Obstetrics [facility] [address] [place] [address] Rosemary Ocampo CRNP [address] [place] [address] Scheduled Orders Name Type Priority Associated Diagnoses Orde r Schedule CBC WITH WBC DIFFERENTIAL AND ANEMIA REFLEX WORKUP Lab Routine Irregular intermenstrual bleeding Expected: 01/19/2024 (Approximate), Expires: 01/18/2025 PROLACTIN Lab Routine Irregular intermenstrual bleeding Expected: 01/19/2024, Expires: 01/18/2025 TSH WITH FREE T4 IF INDICATED Lab Routine Irregular intermenstrual bleeding Expected: 01/19/2024 (Approximate), Expires: 01/18/2025 MAMMOGRAM SCREENING LAUREN BILATERAL Medical Imaging Routine Encounter for screening mammogram for malignant neoplasm of breast Expected: 07/20/2024 (Approximate), Expires: 02/17/2025 Health Maintenance Due Date Last Done Comments [...] this encounter Medical Devices Implanted Type Area Lens Molder Device Identifier Shelf Expiration Date Model / Serial / Lot Device Perm Cntrl [id number] - [id number] Implanted:Qty: 1 on 12/13/2014 by Gokul Scott DO at OR [facility] Right: Fallopian Tube [employer] 07/15/2016 [id number] / / [id number] Device Perm Cntrl [id number] - [id number] Implanted:Qty: 1 on 12/13/2014 by Gokul Scott DO at OR [facility] Left: Fallopian Tube [employer] 10/15/2016 [id number] / / [id number] documented as of this encounter Visit Diagnoses Diagnosis Encounter for annual routine gynecological examination- Primary Irregular intermenstrual bleeding Metrorrhagia Encounter for screening mammogram for malignant neoplasm of breast Other screening mammogram documented in this encounter Advance Directives Latest Code Status on File Code Status Date Activated Date Inactivated Comments Full Code 12/13/2014 10:35 AM 12/13/2014 4:05 PM This o rder reflects the patients wishes and were consensually agreed upon. Care Teams Retail Equipment Associate Relationship Specialty Start Date End Date Rukhsana Torres DO [address] [place] [address] PCP - General Family Medicine 06/14/23 documented as of this encounter
--- OUTSIDE RECORDS SUMMARY | 2024-05-24 04:15 | External Medical Summary | Summary of Care ---
Author Name Unknown Organization [facility] Address [address] [place] [address] Phone [phone] Care Team Providers Care Trade Show Coordinator Name Role Phone MelissaBriceroula Flores DO Primary Care Provider [phone] Encounter Details Date Type Department Care Team (Late st Contact Info) Description 03/29/2024 11:00 AM EDT Telemedicine Psychiatry [facility] [address] [place] [address] Za Barrera CRNP [address] [place] [address] LASHA (generalized anxiety disorder)* Allergies No known active allergiesdocumented as of this encounter (statuses as of 04/10/2024) Medications Medication Sig Dispensed Refills Start Date [...] as of this encounter (statuses as of 04/10/2024) Active Problems Problem Noted Date Diagnosed Date [...] as of this encounter (statuses as of 04/10/2024) Resolved Problems Problem Noted Date Diagnosed Date [...] as of this encounter (statuses as of 04/10/2024) Immunizations Name Administration Dates Next Due COVID-19 mRNA, LNP-s, No Pre serve, 2-Dose Series (Bright[employer]) 08/18/2021,01/06/2021,12/16/2020 Hepatitis B Vaccine, Recombi nant, Adjuvanted, [...] No 11/30/2023 Does the household have a [facility] source of income? (Household - for ages [...] as of this encounter Progress Notes * Za Barrera CRNP - 03/29/2024 11:03 AM EDT OUTPATIENT PSYCHIATRY INITIAL EVALUATION DIVISION OF PSYCHIATRY [facility] [place] [facility]-[address] [address] Name: Cheryl Gabriel Date Patient was Seen: 03/29/2024 Patient location: HOME. I was not in a hospital or clinic location. After connecting through Recommendoo, patient was verified with two unique identifiers. 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 Methods to assure confidentiality were taken. Patient acknowledged consent and understanding of privacy and security of the Telemedicine visit. The patient agreed to participate. Start Time: 11:00 am Stop Time: 12:00 pm Physical Location of patient: Home Cheryl Gabriel is a 43 year old female referred by self. CHIEF COMPLAINT: Anxiety HISTORY OF PRESENT ILLNESS: Patient is a 43 year old female who presents for a psychiatric evaluation. She denies that she is on any psychiatric medications. Denies that she has ever been psychiatrically hospitalized. Denies any history of suicidal attempts. She is not currently in therapy. Patient was raised by her mom, grandparents and stepdad. She states that her childhood was good and denies any history of abuse. She graduated from and attended some college. 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 She lives with her two kids aged 9 and 11. She denies any history of service. Denies any legal history. Denies any history of CHELA. Patient reports symptoms indicative of a Generalized Anxiety Disorder diagnosis. Patient sates marly feels anxious and on edge, is not able to stop or control the worry, feels that he is worrying too much about several different things, reports trouble relaxing, difficulty sitting still, increased irritability and a sense of impeding doom. She reports that her mood is generally good. Denies any depressive symptoms. Denies any history of geraldo or psychosis. Denies SI or HI,. 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 HISTORY: no CURRENT LIVING SITUATION: Current living situation: lives with two kids Marital status: Children: two children Childhood/ raised by: see HPI LEGAL HISTORY: Denies TRAUMA HISTORY: See HPI FAMILY HISTORY: See HPI EDUCATION: Some College MEDICAL HISTORY PRIMARY CARE PROVIDER: Rukhsana Torres DO PAST MEDICAL AND SURGICAL HISTORY: Patient Active Problem List Diagnosis S/P LEEP (loop electrosurgical excision procedure) Hyperinsulinism NSVT (nonsustained ventricular tachycardia) (HCC) Obesity, Class I, BMI 30.0-34.9 (see actual BMI) Chronic fatigue Chronic neck pain Gastroesophageal reflux disease without esophagitis OAB (overactive bladder) LASHA (generalized anxiety disorder) Patellofemoral syndrome of right knee Past Medical History: Diagnosis Date Abnormal Pap smear Gestational diabetes 10/11/2012 Lyme disease Past Surgical History: Procedure Laterality Date COLONOSCOPY, DIAGNOSTIC (RECTUM) 02/25/2021 normal / COLONOSCOPY FLEXIBLE PROXIMAL DIAGNOSTIC performed by Franny Olivares MD at ENDOSCOPY [facility] COLPSCPY CERVIX W/LOOP ELECT ? abnormal pap DILATION AND CURETTAGE (D&C) 10/11/2004 D&C EGD, FLEXIBLE, DIAGNOSTIC 11/12/2020 normal bx / ESOPHAGOGASTRODUODENOSCOPY (EGD), FLEXIBLE, TRANSORAL, DIAGNOSTIC performed by Franny Olivares MD at ENDOSCOPY [facility] EGD, W/ENDOSCOPIC US 11/12/2020 fatty liver / ESOPHAGOGASTRODUODENOSCOPY (EGD), FLEXIBLE, TRANSORAL, ENDOSCOPIC ULTRASOUND performed by Franny Olivares MD at ENDOSCOPY [facility] FLUORO HYSTEROSALPINGOGRAM 03/11/2012 HYSTEROSCOPY W/FALLOPIAN IMPLANTS Bilateral 12/13/2014 HYSTEROSCOPY SURGICAL BILATERAL FALLOPIAN TUBE performed by Gokul Scott DO at OR [facility] REMOVAL OF OVARIAN CYST(S) 2004, 2007 several cysts removed x 3; laps REMOVE CERVIX CONE W/LOOP ELECTRODE 10/11/2005 ALLERGIES: Patient has no known allergies. CURRENT MEDICATIONS: Current Outpatient Medications Medication Sig Dispense Refill Oxybutynin Chloride ER 10 MG Oral Tablet Extended Release 24 Hour Take 1 Tablet by mouth in the morning. Do not cut, crush or chew. (Patient not taking: Reported on 08/12/2023) 90 Tablet 3 One Daily Multivitamin Women Oral Tablet Take 1 Tablet by mouth daily. Famotidine 20 MG Oral Tablet (Pepcid) Take 1 Tablet by mouth in the morning and 1 Tablet before bedtime. 180 Tablet 3 Omeprazole 20 MG Oral Capsule Delayed Release (PriLOSEC) Take 1 Capsule by mouth daily. 90 Capsule 3 Trulance 3 MG Oral Tablet (Plecanatide) Take 3 mg by mouth in the morning. 90 Tablet 3 Ondansetron HCl 4 MG Oral Tablet (Zofran) TAKE 1 TABLET BY MOUTH EVERY 6 HOURS NEEDED FOR NAUSEA(Patient not taking: Reported on 08/27/2023) 24 Tablet 0 Multi-Vitamins Oral Tablet Take 1 Tablet by mouth in the morning. Terbinafine HCl 1 % External Cream (LamISIL AT) Apply topically to affected area daily. To affectedarea. (Patient not taking: Reported on 01/19/2024) 12 g 0 Vitamin B 12 500 MCG Oral Tablet Take by mouth. Vitamin D (Cholecalciferol) 50 MCG (2000 UT) Oral Capsule Take by mouth. No current facility-administered medications for this visit. Review of patient's allergies indicates: No Known Allergies Current Outpatient Medications Medication Sig Dispense Refill Oxybutynin Chloride ER 10 MG Oral Tablet Extended Release 24 Hour Take 1 Tablet by mouth in the morning. Do not cut, crush or chew. (Patient not taking: Reported on 08/12/2023) 90 Tablet 3 One Daily Multivitamin Women Oral Tablet Take 1 Tablet by mouth daily. Famotidine 20 MG Oral Tablet (Pepcid) Take 1 Tablet by mouth in the morning and 1 Tablet before bedtime. 180 Tablet 3 Omeprazole 20 MG Oral Capsule Delayed Release (PriLOSEC) Take 1 Capsule by mouth daily. 90 Capsule 3 Trulance 3 MG Oral Tablet (Plecanatide) Take 3 mg by mouth in the morning. 90 Tablet 3 Ondansetron HCl 4 MG Oral Tablet (Zofran) TAKE 1 TABLET BY MOUTH EVERY 6 HOURS NEEDED FOR NAUSEA(Patient not taking: Reported on 08/27/2023) 24 Tablet 0 Multi-Vitamins Oral Tablet Take 1 Tablet by mouth in the morning. Terbinafine HCl 1 % External Cream (LamISIL AT) Apply topically to affected area daily. To affectedarea. (Patient not taking: Reported on 01/19/2024) 12 g 0 Vitamin B 12 500 MCG Oral Tablet Take by mouth. Vitamin D (Cholecalciferol) 50 MCG (2000 UT) Oral Capsule Take by mouth. No current facility-administered medications for this visit. No medication comments found. There were no vitals filed for this visit. Wt Readings from Last 3 Encounters: 01/19/24 77.7 kg (171 lb 3.2 oz) 10/28/23 79.8 kg (176 lb) 08/27/23 78.4 kg (172 lb 14.4 oz) There is no height or weight on file to calculate BMI. RECENT LABS/IMAGING: Recent Results (from the past 2016 hour(s)) PROLACTIN Collection Time: 01/21/24 2:19 PM Result Value Ref Range Prolactin 17.2 4.8 - 30.0 ng/mL TSH WITH FREE T4 IF INDICATED Collection Time: 01/21/24 2:19 PM Result Value Ref Range TSH 1.50 0.27 - 4.20 uIU/mL ANEMIA CBC Collection Time: 01/21/24 2:19 PM Result Value Ref Range WBC 5.32 4.00 - 10.80 K/uL RBC 4.97 3.85 - 5.15 M/uL HGB 13.8 12.0 - 15.3 g/dL HCT 40.9 36.0 - 45.2 % MCV 82.3 81.5 - 97.5 fL MCH 27.8 27.0 - 34.0 pg MCHC 33.7 32.0 - 36.0 g/dL RDW 13.6 11.5 - 15.5 % PLT 259 140 - 400 K/uL MPV 10.6 6.6 - 11.1 fL nRBCs 0 <=0 /100 WBCs DIFFERENTIAL, AUTOMATED Collection Time: 01/21/24 2:19 PM Result Value Ref Range WBC 5.32 4.00 - 10.80 K/uL Neutrophils % 53.2 40.0 - 75.0 % Lymphocytes % 38.7 18.0 - 42.0 % Monocytes % 6.2 1.0 - 11.0 % Eosinophils % 1.1 0.0 - 6.0 % Basophils % 0.6 0.0 - 2.0 % Immature Granulocytes % 0.2 0.0 - 2.0 % Absolute Neutrophils 2.83 1.80 - 7.70 K/uL Absolute Lymphocytes 2.06 1.00 - 4.80 K/ul Absolute Monocytes 0.33 0.00 - 1.10 K/uL Absolute Eosinophils 0.06 0.00 - 0.70 K/uL Absolute Basophils 0.03 0.00 - 0.20 K/uL Absolute Immature Granulocytes 0.01 0.00 - 0.20 K/uL MEDICAL REVIEW OF SYSTEMS: Please see medical notes MENTAL STATUS EVALUATION: Appearance: casually dressed Muscle strength and tone: no abnormal involuntary movement or gross abnormality of muscle strength and tone noticeable via tele-medicine encounter Gait and Station: No abnormalities noted via tele-medicine encounter Behavior: cooperative Speech: normal, rate, tone and volume Mood: anxious Affect: type - anxious; range - full range; lability - no Associations: intact Thought Process: goal directed Abstract Reasoning: intact Thought Content: denies suicidal ideations, homicidal ideations, auditory hallucinations, visual hallucinations, delusions, impulsivity to act out or preoccupation with violence Orientation: alert and oriented to person, place, time and situation Attention span/concentration as evidenced by: ability to sustain attention to examiner - intact Insight: good Judgment: good [place]-SUICIDE SEVERITY RATING SCALE Frequent Screener Ask questions that are bold and underlined Since Last Contact (Sonido with an X) YES NO Have you actually had thoughts about killing yourself? If YES, ask the following questions. If NO, go directly to the last question Have you been thinking about how you might do this? Have you had these thoughts and had some intention of acting on them? E.g. I thought about taking an overdose, but I never made a specific plan as to when where or how I would actually do it.and I would never go through with it. Have you started to work out or worked out the details of how to kill yourself? Do you intend to carry out this plan? As opposed to I have the thoughts, but I definitely will not do anything about them. Have you done anything, started to do anything, or prepared to do anything to end your life? Examples: Collected pills, obtained a gun, gave away valuables, wrote a will or suicide note, took out pills but didn't swallow any, held a gun but changed your mind or it was grabbed from your hand,went to the roof but didn't jump; or actually took pills, tried to shoot yourself, cut yourself, tried to hang yourself, etc. Low Risk Complete or review crisis plan with patient Discuss risk/protective factors and reasons for living Moderate Risk Complete or review crisis plan with patient Discuss risk/protective factors and reasons for living Discuss removal of means High Risk Maintain 1 to 1 monitoring until assessment is completed Evaluate for higher level of care (Inpatient or PHP) Consultation with Emergency Services as appropriate If patient not admitted: Complete or review crisis plan with patient Discuss risk/protective factors and reasons for living Advise removal of means Consider family or collateral contact to promote safety Schedule follow up care consistent with assessment Professionals or agencies I can contact during a crisis (clinician name and phone number): 1. Psychiatrist - GUILLERMINA Brush: [phone] 2. Division of Psychiatry: [phone] 3. Local Crisis Services: For [facility] and [facility] call TAPLine at . [facility] Emergency Number: Additional resources: 1. National Suicide Prevention Lifeline: 2. National Crisis Text Line: Text HOME to 621537 3. 988 or proceed to the nearest emergency room (Safety Plan Treatment Manual to Reduce Suicide Risk: Version (John & Praful, 2008)) RISK ASSESSMENT Risk factors: Patient has several risk factors for suicide, including: Suicide attempt: recent, remote Suicide ideation: current, recent, remote Self-injurious behavior: current, recent, remote Depression: mild, moderate, severe Mixed episode: mild, moderate, severe Psychosis: hallucinations, delusions Substance use disorder: intoxication, withdrawal Protective factors: Future oriented Hopeful Family and interpersonal relationships Employed Good insight Engaged in treatment Formulation: Based on these risk and protective factors, this patient's safety risk is assessed to be minimal atthis time. Patient reports that she is struggling with anxiety but at this time does not want to purse psychiatric treatment for anxiety. Discussed contact GUILLERMINA when she is done with ADHD testing if she decidesto purse that to go forward with medicating if dx is confirmed. ASSESSMENT AND PLAN: LASHA Medications: No medications prescribed. 2. Laboratory tests: describe 3. Therapy: continue to offer psychotherapy as an adjunct to evaluation and management and prescription of psychiatric medications. Pt to continue additional individual therapy. Recommended additional individual therapy. Pt in agreement. Referral placed. 4. RTC: in One week(s) Treatment options and alternatives reviewed with patient who agrees with the above plan. Information about current medications was provided to the patient including reasons why medications are being used. Patient understood the risks, benefits, side-effects, and potential complications associated with changes in medications being proposed (both medications being started and medications being discontinued or having dose changed). Patient is making an informed medical decision to follow the recommendations outlined in this note. Directed pt to call with any questions or concerns, worsening symptoms and/or ask for earlier appointment. Greater than 50% of the time was spent counseling or coordinating the care of the patient Risk assessment was performed. This is a patient being treated for chronic mental health conditionsand/or substance use disorder as characterized above; at the time of this visit, there was no indication that this patient was either a risk to self, others, or gravely disabled by symptoms of a mental illness or substance use disorder. At the time of this evaluation, there were enough protective factors in place and it was deemed safe to continue with treatment on an outpatient basis with returnto clinic in the timeframe described above. Cheryl Levin Gabriel participated in developing a crisis plan should he/she experience worsening of symptoms before next follow-up appointment, including being aware of what resources to use according to the urgency and severity of symptoms. Cheryl Levin Gabriel was able to verbalize understanding of the steps necessary to obtain help between appointments should be needed, from requesting a phone call, to requesting an appointment sooner, including reaching clinic after hours, or accessing emergency mental health and medical services, either at a local emergency department or by activating mobile crisis teams and EMS. TREATMENT PLAN: Time Spent on Visit: 1 hours Billing code: [id number] GUILLERMINA Brush [phone] 04/10/2024 12:47 AM documented in this encounter Plan of Treatment Upcoming Encounters Date Type Department Care Team (Late st Contact Info) Description 05/01/2024 1:00 PM EDT Office Visit Dermatology [address] [place] [address] Rukhsana Segura PA-C [address] [place] [address] [place] [address] 05/30/2024 10:45 AM EDT Imaging Radiology [facility] [address] [place] [address] 10/31/2024 1:40 PM EST Office Visit Family Practice [facility] [address] [place] [address] Rukhsana Torres DO [address] [place] [address] 01/26/2025 2:00 PM EDT Office Visit Gynecology/Obstetrics Tanika Raman [address] [place] [address] Rosemary Ocampo CRNP [address] [place] [address] Health Maintenance Due Date Last Done Comments HPV/Co-Test 2010 COVID-19 Vaccine (2022-24 season) 2023 08/18/2021, 01/06/2021, 12/16/2020 Lipid Panel [...] encounter Medical Devices Implanted Type Area Director Of Business Services Device Identifier Shelf Expiration Date Model / Serial / Lot Device Perm Cntrl [id number] - [id number] Implanted:Qty: 1 on 12/13/2014 by Gokul Scott DO at OR [facility] Right: Fallopian Tube [employer] 07/15/2016 [id number] / / [id number] Device Perm Cntrl [id number] - [id number] Implanted:Qty: 1 on 12/13/2014 by Gokul Scott DO at OR [facility] Left: Fallopian Tube [employer] 10/15/2016 [id number] / / [id number] documented as of this encounter Visit Diagnoses Diagnosis LASHA (generalized anxiety disorder)- Primary Generalized anxiety disorder documented in this encounter Advance Directives * Full Code (Latest Code Status on File) Date Activated Date Inactivated Comments 12/13/2014 10:35 AM 12/13/2014 4:05 PM This order re flects the patients wishes and were consensually agreed upon. Care Teams Trade Show Coordinator Relationship Specialty Start Date End Date Rukhsana Torres DO [address] [place] [address] PCP - General Family Medicine 06/14/23 documented as of this encounter
--- OUTSIDE RECORDS SUMMARY | 2024-05-24 04:15 | External Medical Summary ---
Author Name Unknown Address Unknown Organization [id number]:LABORATORY [facility] [address] [place] [address] Laboratory Report Ordering Provider Test Date Status JOSÉ ANTONIO BARBER 01/21/2024 14:19:25 Final Observation Date Value Abnormality Reference (Units ) Status WBC, Total 01/21/2024 14:19:25 5.32 4.00-10.8 0 (K/uL) Final RBC 01/21/2024 14:19:25 4.97 3.85-5.15 (M/uL) Final Hemoglobin 01/21/2024 14:19:25 13.8 12.0-15.3 (g/dL) Final Anemia reflex testing trigge rs on a HGB < 12.0 for Females and HGB < 13.0 for Males in accordance with the WHO Anemia Guidelines
Anemia reflex testing triggers on a HGB < 12.0 for Females and HGB < 13.0 for Males in accordance with the WHO Anemia Guidelines HCT 01/21/2024 14:19:25 40.9 36.0-45.2 (%) Final MCV 01/21/2024 14:19:25 82.3 81.5-97.5 (fL) Final MCH 01/21/2024 14:19:25 27.8 27.0-34.0 (pg) Final MCHC 01/21/2024 14:19:25 33.7 32.0-36.0 (g/dL) Final RDW 01/21/2024 14:19:25 13.6 11.5-15.5 (%) Final Platelets 01/21/2024 14:19:25 259 140-400 (K /uL) Final MPV 01/21/2024 14:19:25 10.6 6.6-11.1 ( fL) Final Nucleated erythrocytes/100 leukocytes [Ratio] in Blood by Automated count 01/21/2024 14:19:25 0 <=0 (/100 WBCs) Fi nal Performing Location LAB[facility]ATORY [facility] - [address] [place] [address]
--- OUTSIDE RECORDS SUMMARY | 2024-05-24 04:15 | External Medical Summary ---
Author Name Unknown Address Unknown Organization [id number]:[facility]ATORY [facility] - [address] [place] [address] Laboratory Report Ordering Provider Test Date Status JOSÉ ANTONIO BARBER 01/21/2024 14:19:25 Final Observation Date Value Abnormality Reference (Units ) Status SYNC LEUKOCYTES IN BLOOD BY AUTOMATED COUNT 01/21/2024 14:19:25 5.32 4.00-10.80 (K/uL) Final Segs 01/21/2024 14:19:25 53.2 40.0-75.0 (%) Final Lymphs % 01/21/2024 14:19:25 38.7 18.0-42.0 (%) Final Monos 01/21/2024 14:19:25 6.2 1.0-11.0 (%) Final Eosinophils 01/21/2024 14:19:25 1.1 0.0-6.0 (%) Final Basos 01/21/2024 14:19:25 0.6 0.0-2.0 (%) Final Immature Granulocyte, Percent 01/21/2024 14:19:25 0.2 0.0-2.0 (%) Final Absolute Segs 01/21/2024 14:19:25 2.83 1.80-7.70 (K/uL) Final Lymphs, absolute 01/21/2024 14:19:25 2.06 1.00-4.80 (K/ul) Final Monos, Abs 01/21/2024 14:19:25 0.33 0.00-1.10 (K/uL) Final Eos, Abs 01/21/2024 14:19:25 0.06 0.00-0.70 (K/uL) Final Basos, Abs 01/21/2024 14:19:25 0.03 0.00-0.20 (K/uL) Final Immature Granulocytes, Number 01/21/2024 14:19:25 0.01 0.00-0.20 (K/uL) Final Performing Location LABORATORY [facility] - [address] [facility] [address]
--- OUTSIDE RECORDS SUMMARY | 2024-05-24 04:16 | External Medical Summary | Summary of Care ---
Author Name Unknown Organization [facility] Address [address] [place] [address] Phone [phone] Care Team Providers Care Textile Conversion Manager Name Role Phone Rukhsana Torres DO Primary Care Provider [phone] Reason for Visit * Reason Comments Consultation Anxiety * Evaluate & Treat - Unlimited Visits (Within 10 days (routine)) - Pending Review Specialty Diagnoses / Procedures Referred By Contac t Referred To Contact Psychology Diagnoses Food aversion Rukhsana Torres DO [address] [place] [address] Referral ID Status Reason Start Date Expiration Date Visits Requested Visits Authorized [id number] Pending Review Specialty Services Required 10/28/[phone] Encounter Details Date Type Department Care Team (Late st Contact Info) Description 11/30/2023 1:00 PM [facility] [address] [place] [address] Claudia Marin LCSW [address], [place] [id number] Anxiety state*; Food aversion Allergies No known active allergiesdocumented as of this encounter (statuses as of 11/30/2023) Medications Medication Sig Dispensed Refills Start Date [...] affected area. 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 04/26/2023 10/28/2023 H/O gestational diabetes in prior , currently 01/29/2014 10/09/2014 Overview: Was diet controlled Early glucola-elevated; 3hr gtt normal- 1 value elevated, 1 value 1 pt from abnormal Gestational diabetes 10/10/2012 04/21/2 014 Overview: Needs nutrition consult (done) and [...] as of this encounter (statuses as of 11/30/2023) Immunizations Name Administration Dates Next Due COVID-19 mRNA, LNP-s, No Pre serve, 2-Dose Series (Mobile Messenger) 08/18/2021,01/06/2021,12/16/2020 Hepatitis B Vaccine, Recombi nant, Adjuvanted, [...] Date Recorded PHQ Adult Total Score 0 11/30/2023 Hunger Vital Sign Answer Date Recorded Within [...] as of this encounter Progress Notes * Claudia Marin LCSW - 11/30/2023 12:58 PM EST Images from the original note were not included. Psychiatry Intake Assessment Patient location: HOME. I was not in a hospital or clinic location. After connecting through televideo, patient was verified with two unique identifiers. 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 Methods to assure confidentiality were taken. Patient acknowledged consent and understanding of privacy and security of the Telemedicine visit. The patient agreed to participate. Provider reviewed elements of Outpatient Services Description including limits of confidentiality, how to contact the department, risks and benefits of treatment and consent for treatment. Patient is unable to sign acknowledgment receiving form. Signature will be obtained when Covid 19 crisis has passed and in person services resume. For [facility] members, Encounter Form unable to be signed, signature exempt - Telehealth, and will beobtained when Covid 19 crisis has passed and in person services resume. Start Time: 12:58pm Stop Time: 1:37pm Total Time:39 Minutes History of Present Illness Reason for Referral: Cheryl Gabriel is 43 year old. Referred by Rukhsana Torres DO [facility] [place] for Other: food aversion Brief History of Present Illness: Patient reports "I have major food issues in my head" and "I havea very limited amount of things I will eat and it has to be in a certain way". Patient states that they almost exclusively eat carbohydrates and sugars. Patient reports they feel like it may be connected to their fear of vomiting. Patient states she is extremely hesitant to smell or try new things. Patient reports experiencing anxiety, worrying about things constantly, getting easily distracted, trouble on concentrating on and finishing certain tasks, feeling on edge, trouble letting things go if it something "feels off", ruminating thoughts, some forgetfulness, feeling overwhelmed, anger, and nightmares about vomiting. Patient describes as "extremist". Also reports panic attacks (shakiness, racing heart, numbness around mouth, feeling like throat is closing). Patient has young children and worries about them being sick. 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 Patient states she has trouble when others get sick and at times can't sleep because she is worrying about it. Patient states things are worsen in winter as people are typically getting sicker/having colds/flu. Patient states that she feels she needs a routine including their schedule but also including theclothes they where, etc. Patient states symptoms present throughout life and beginning in childhood. Patient states she had some difficulty in school with concentrating and forgetfulness, especially with subjects that didn't interest patient. Denies HI/SI/Psychosis. Patient has good support system.Potential causes/stressors/trauma include: son involved in mental mimi services, silence. Patient's goal is med management/dx clarification, support through counseling. Main Office # for Behavioral Health: [phone] Screening Questionnaires: 11/30/2023 PSYCH QUESTIONNAIRES TOTAL Adult PHQ-9 Total Score 0 [place] Suicide Severity Rating Scale Results 11/30/2023 13:27 [place] SUICIDE SEVERITY RATING SCALE (C-SSRS) Have [...] Risk No Risk Identified Protective Factors Social Support/Family;Access to appropriate services;Help- Seeking Behaviors;Cares about job/school Risk Factors Anxiety SISQ - How many times in the past year have you used an illegal drug or used a prescription medicine for non-medical reasons? 0 How many times in the past year have you had X or more drinks in a day? 0 (x=5 for men and 4 for women) Screening questions for Obsessive Compulsive Disorder Do you have frequent unwanted thoughts that seem uncontrollable? Yes Do you try to get rid of these thoughts and, if so, what do you do? Yes- distraction, try to keep mind occupied. Hardest at night when there is nothing to distract. Do you have rituals or repetitive behaviours that take a lot of time in a day? No Do you wash or clean a lot? No Do you keep checking things over and over again? Occasionally. Not being able to let something go unless they can find the cause of it. Are you concerned with symmetry and putting things in order? No Do your daily activities take a long time to complete? Yes (as patient has trouble focusing on morethan one thing) Do these problems trouble you? Yes Does this behaviour make sense to you? Yes, but eventually understands that thought isn't logical. Past History The patient's past history was reviewed and updated. Past Psychiatry History: Are you currently being treated for a mental health or substance use condition? No Ever been treated as an outpatient (such as a doctor's or therapist's office or a clinic) for a mental health or substance use condition? Yes Very briefly during (symptoms worsened during this time) Ever been hospitalized for a mental health or substance use condition? No Ever been to the emergency room for a mental health or substance use condition? No Have you overdosed in the last month? No Mental Status Exam Appearance: within normal limits Behavior: appropriate Speech: normal pitch, normal rate, and normal volume Mood: euthymic Affect: appropriate Thought Process: within normal limits Thought Content: Delusions: No Hallucinations: No Obsessions: Yes, description particular about certain. Homicidal: No Suicidal: No Sensorium: alert and oriented to person, place, time and situation Cognition: grossly intact Insight: good Judgment: good Assessment and Plan Diagnostic Impression: Diagnoses listed below are provisional and further assessment and differential diagnosis is needed. ICD-10-CM 1. Anxiety state F41.1 2. Food aversion R63.39 Rule out OCD Recommendations/Plan: Full Treatment plan will be deferred to the clinician to whom the patient has been assigned. Individual (general) psychotherapy and Adult Psychiatry for medication consultation: med management Interactive Complexity: did not involve interactive complexity. National Suicide Prevention Lifeline : 988 Crisis Textline : Text "HOME" to 300621 to connect with a crisis counselor Crisis Numbers by County: [place] [facility] - Emergency Services [facility] (2875-0-YOU CAN) re:solve Crisis Network Heath & Roane . The Open Door - Crisis Intervention [place] [facility] Crisis Help-Line Ruth & [employer] [facility] - Crisis Intervention Services [facility] Service Access [employer] - Crisis Intervention [place] Choose option [address] [place] [address] of Roster Clerk Mohan, Christel & Kohler Crisis Intervention [facility] - Mental Health Crisis [place] [facility] - Crisis Intervention [place] - Crisis Intervention Michell Oliveira [place] - Crisis Line Jose [place] - Mental Health Crisis Hotline Spencer Chan [facility] - Crisis Services [place] [facility] Crisis Center [place] Service Access [employer]. - Crisis Intervention Rachael - Mental Health Crisis Intervention Services [facility] [place] MH/ID Program [place], Mariah, Tomas, Brian - Crisis System [place] [facility] - Crisis Hotline Art (5-575-739-HELP) [facility] - Crisis Intervention [facility] - Crisis Intervention [facility] - Crisis Services Jim [facility] Behavioral Health - Crisis Center Tomas [facility] - Crisis Hotline Krunal (8:30 am-5:00 pm) OR (after 5:00 pm, weekends & holidays) Bernardo Carmen Tony [facility] Crisis Intervention Program [place] [facility] - Mental Health Crisis Line Ck Rodríguez and Maria C [facility] Crisis Dresser & Primo [facility] Crisis Intervention [place] [facility] Mental Health Crisis Service [place] [facility] Crisis Intervention [place] [facility] - Crisis Intervention [place] & Juana Diaz [facility] - Help [facility] [place] MH/ID Program [facility] - Crisis Intervention [facility] - Crisis Intervention [place] [facility] Emergency Services, [facility] - Crisis Intervention [place] [facility] Behavioral Health - Emergency Services [place] [facility] - Crisis Line [place] - DBHIDS - Suicide and Crisis Intervention Hotline Yaa [facility] - Crisis/ Emergency Services [facility] - Emergency Contact Line [place] [facility] - Crisis Line Matthew ext. 1 [facility] Human Services [facility] Action - Crisis Intervention Hotline [place] [facility] Crisis Intervention Services documented in this encounter Plan of Treatment Upcoming Encounters Date Type Department Care Team (Late st Contact Info) Description 12/06/2023 1:30 PM EST Telemedicine [facility] [place] [address] [place] [address] Mabel Reed LCSW [address] [place] [address] 12/07/2023 1:30 PM EST Imaging Radiology [facility] 1st Floor, [place] [address] [place] [address] 12/23/2023 2:05 PM EDT NeuroDiagnostic Study Neurophysiology Isaccmarisel Ra[facility]n [place] [facility] [place] [address] Jah Morgan, DO [address] [facility] [address] 01/14/2024 8:30 AM EDT Imaging [facility] 2nd Floor Cardiology, [place] [address] 01/14/2024 10:00 AM EDT Imaging [facility] 2nd Floor Cardiology, [place] Joseph Reddyil [place] [address] 01/14/2024 11:00 AM EDT Imaging [facility] 2nd Floor Cardiology, [place] Joseph Aragongail [place] [address] 01/14/2024 1:00 PM EDT Imaging [facility] [address] [facility] [place] [address] 01/19/2024 1:30 PM EDT Office Visit Gynecology/Obstetric s [address] [place] [address] Vi Catalan, CNM [address] [facility] [address] 03/29/2024 11:00 AM EDT Telemedicine Psychiatry, [place] [address] [place] [address] Za Barrera, SENIOR C SOFTWARE ENGINEER [address] [place] [id number] 05/01/2024 1:00 PM EDT Office Visit Dermatology [address] [place] [address] Rukhsana Segura PA-C [address] [place] [address] [place] [address] 05/30/2024 11:00 AM EDT Imaging Radiology [facility] [address] [facility] [place] [address] 10/31/2024 1:40 PM EST Office Visit Family Practice [facility] [address] [place] [address] Rukhsana Torres DO [address] [facility] [place] [address] Scheduled Referrals Name Type Priority Associated Diagnoses Orde r Schedule ADULT/PEDS PSYCHOLOGY REFERRAL OP Referral Within 10 days (routine) Food aversion Ordered: 10/28/2023 Health Maintenance Due Date Last Done Comments HPV/Co-Test 2010 Depression Screening 04/29/2021 04/29/2020 COVID-19 Vaccine ( season) 2023 08/18/2021, 01/06/2021, 12/16/2020 Influenza Vaccine (FLU shot) (#1) 2023 06/26/2014, 07/05/2012 Lipid Panel 11/12/2023 11/12/2018 Cervical Cancer Screening 11/20/2023 Pap Smear 11/20/2023 11/20/2020, 11/11, 11/26/2016, Additional history exists Mammogram 12/07/2023 12/07/2022, 12/10, 12/03/2021, Additional history exists Diabetes Screening 11/22/2026 11/22/2023, 0 05/27/2023, 05/07/2023, [...] this encounter Medical Devices Implanted Type Area Renal Medicine Specialist Device Identifier Shelf Expiration Date Model / Serial / Lot Device Perm Cnt [id number] - [id number] Implanted:Qty: 1 on 12/13/2014 by Gokul Scott DO at [facility] Right: Fallopian Tube [employer] 07/15/2016 [id number] / / [id number] Device Perm Cntr [id number] - [id number] Implanted:Qty: 1 on 12/13/2014 by Gokul Scott DO at [facility] Left: Fallopian Tube [employer] 10/15/2016 [id number] / / [id number] documented as of this encounter Visit Diagnoses Diagnosis Anxiety state- Primary Anxiety state, unspecified Food aversion Feeding difficulties and mismanagement documented in this encounter Advance Directives Latest Code Status on File Code Status Date Activated Date Inactivated Comments Full Code 12/13/2014 10:35 AM 12/13/2014 4:05 PM This o rder reflects the patients wishes and were consensually agreed upon. Care Teams Textile Conversion Manager Relationship Specialty Start Date End Date Rukhsana Torres DO [address] [place] [address] PCP - General Family Medicine 06/14/23 documented as of this encounter
--- OUTSIDE RECORDS SUMMARY | 2024-05-24 04:16 | External Medical Summary | Summary of Care ---
Author Name Unknown Organization [facility] Address [address] [place] [address] Phone [phone] Care Team Providers Care Automotive Lube Technician Name Role Phone MelissaBirceroula Flores DO Primary Care Provider [phone] Encounter Details Date Type Department Care Team (Late st Contact Info) Description 12/06/2023 1:30 PM EST [facility] [address] [place] [address] Mabel Reed, [facility] [address] [place] [address] Generalized anxiety disorder with panic attacks*; Specific phobia; Avoidant/restrictive food intake disorder Allergies No known active allergiesdocumented as of this encounter (statuses as of 12/08/2023) Medications Medication Sig Dispensed Refills Start Date [...] as of this encounter (statuses as of 12/08/2023) Active Problems Problem Noted Date Diagnosed Date [...] as of this encounter (statuses as of 12/08/2023) Resolved Problems Problem Noted Date Diagnosed Date [...] as of this encounter (statuses as of 12/08/2023) Immunizations Name Administration Dates Next Due COVID-19 mRNA, LNP-s, No Pre serve, 2-Dose Series ([employer]) 08/18/2021,01/06/2021,12/16/2020 Hepatitis B Vaccine, Recombi nant, Adjuvanted, [...] Answer Date Recorded PHQ Adult Total Score 6 12/06/2023 Hunger Vital Sign Answer Date Recorded Within [...] this encounter Progress Notes * Mabel Reed, CONVENTIONAL UNDERWRITER - 12/06/2023 1:33 PM EST Images from the original note were not included. Patient location: HOME. I was not in a hospital or clinic location. After connecting through televideo, patient was verified with two unique identifiers. Patient (or authorized legal inside sales account representative) was then informed that this was [...] that I have reviewed their record in [facility] and presented the opportunity for them to ask any questions regarding the visit today. The patient agreed to participate. Provider reviewed elements of Outpatient Services Description including limits of confidentiality, how to contact the department, risks and benefits of treatment and consent for treatment. Jeanine is committed to coordinated care through an integrated delivery system and shared medicalrecord. Since our patients are seen both in primary care and behavioral health (as well as other specialties), each provider has immediate access to information to enable collaboration across the continuum. Start Time: 1:35 PM Stop Time: 2:37 PM Total direct [id number]-[id number] time: 62 minutes Confirm patient's location (and address if different from the home address documented in [facility]) at the time of this appointment: Home location confirmed OUTPATIENT BEHAVIORAL HEALTH EVALUATION [place] [address] 12/06/2023 1:34 PM Referring Provider: Rukhsana Torres DO Length of visit: 62 minutes. Diagnosis: Generalized Anxiety Disorder with panic attacks; Specific Phobia; Avoidant/Restrictive Food Intake Disorder Psych Diagnostic Evaluation: CPT: 09839 REASON FOR REFERRAL Cheryl Gabriel is 43 year old. Referred by PCP for Anxiety BRIEF SUMMARY OF ASSESSMENT CASE DISPOSITION/RECOMMENDATIONS Cheryl Gabriel would benefit from individual outpatient therapy for the primary presenting concern(s) of anxiety/phobia. Treatment recommendations and associated risks/benefits and alternative treatments as well as forgoing treatment were discussed. See BH Therapy Treatment Plan in "Plans" section. Recommend referral for None Cheryl Gabriel agreed to plan and was scheduled/referred accordingly: yes PRESENTING PROBLEM Patient reports that in her early 20s she was having "pretty severe panic attacks" and didn't want to leave the house and was prescribed antidepressants but stopped taking them. Patient reports she saw a therapist when she was which she describes as situational as she was having panic attacks due to her work situation. Patient reports that "my anxiety comes from a place of being a control freak and I have a difficult time dealing with things I have no control over." Patient reports that at night she has ruminating thoughts as she has "tons of things to do." Patient reports she has a need to know what is happening at all times and has to read the last chapter of a book first as a res ult. Patient reports that she "has an extreme phobia of vomit." Patient reports she has nightmares about people vomiting and can't go back to sleep because when she closes her eyes she can see it. 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 Patient reports her youngest son is in therapy, is diagnosed with ADHD (thinks she may this diagnosis as well), and she has guilt about him having a short-temper and expressing negative emotions as anger (realizes that he is exactly like her and it doesn't feel good "seeing traits you don't love about yourself in someone else)." Patient reports that it's hard for her to let go of things and deal with her anger appropriately and her "gets the brunt ofeverything." Patient reports that she has a lot of food issues and doesn't do well trying new things or eating healthy things (mostly eats carbohydrates and sugars). Patient endorses anxiety with panic attacks (shaking, feels numb around mouth, hard to breathe, feels like throat is closing; last att ack in 2022), excessive worry, inability to control worry, trouble relaxing, irritability, feeling afraid as if something awful might happen, sleep disturbance, low energy, poor appetite, and difficulty concentrating. Patient denies current SI/HI, or intent to self-harm. Patient is seeking therapy "to learn how to cope with emotions in a healthier, more appropriate way." SYMPTOMS Mood: anxious and sad Aracely/Hypomania: No Interest: good Energy: anergia Appetite: stomach issues cause problems, but also can't bring self to eat certain foods and makes her gag even though she feels hungry vs other days will she will eat and eat Concentration: difficulty with focus and attention Psychomotor changes: psychomotor agitation Anxiety: Panic attacks. Last episode: 2022, Anxious cognitions, ruminating thoughts about things she has to do, and Obsessive thoughts about people vomiting Neurological Problems/Hx of head injury: No Trauma Hx: denied Delusions: No Hallucinations: No SYMPTOM MEASURES Jose-7 Question 12/06/2023 12:11 PM EST - Filed by Patient Over the last 2 weeks, how often have you been bothered by the following problems? Feeling nervous, anxious, or on edge More than half the days Not being able to stop or control worrying Several days Worrying too much about different things More than half the days Trouble relaxing Several days Being so restless that is hard to sit still Not at all Becoming easily annoyed or irritable Nearly every day Feeling afraid as if something awful might happen Several days Total score of all questions (range: 0 - 21) 10 (Moderate) Phq9-Depression Question 12/06/2023 12:13 PM EST - Filed by Patient Over the last [...] half the days Poor appetite or overeating More than half the days Feeling bad about yourself - or that you are a failure, or have let yourself or your family down Not at all Trouble concentrating on things, such as reading the newspaper or watching television Several days Moving or speaking so slowly that other [...] Question 5 score (range: 0 - 3) 2 Question 6 score (range: 0 - 3) 0 Question 7 score (range: 0 - 3) 1 Question 8 score (range: 0 - 3) 0 Question 9 score (range: 0 - 3) 0 Sum of all PHQ9 questions. (range: 0 - 27) 6 (Mild Depression) Myc Visit Accident Related Question Question 12/06/2023 12:13 PM EST - Filed by Patient Is this visit related to an accident? (i.e work, motor vehicle) No MENTAL HEALTH HISTORY Past treatment: Therapy, Outpatient: during due to work issues which caused anxiety/panicattacks Psychotropic medications, including antidepressants Prior psychiatric diagnosis: anxiety Current treatment: None Family history: Yes, description maternal side - 3 cousins ,schizophrenia; 1 cousin who committed suicide. CURRENT MEDICATIONS: Current Outpatient Medications Medication Sig [...] topically to affected area daily. To affectedarea. 12 g 0 No current facility-administered medications for this visit. HEALTH BEHAVIORS ETOH: None. Illicit Drugs: denied. Evidence of risky use: No Impaired Control: No DUI/Legal: No Tolerance/Withdrawal: No Medical Cannabis: No Nicotine: To be assesed Caffeine: To be assesed cups/day Exercise: To be assesed Weight: To be assesed Sleep: poor with DIS (difficulty initiating sleep). Pain level 0-10: Current: To be assesed Medication/Treatment Adherence: no psychotropic medications prescribed SOCIAL HISTORY: Relationship status: , 15 years. Quality of Relationship: positive/supportive Progeny: Children: 2, ages 9, 10. Grandchildren: N/A, ages N/A Quality of relationship with children: positive/supportive. 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 Education Level: some college Legal Problems: never Service: No Holiness orientation: Other: atheist. Born: [place] Family of origin composition: mother, stepdad 1 siblings Family of origin relationships: good Leisure pursuits: music, listen to audiobooks, watch tv, relax MEDICAL PROBLEMS Past Medical History: Diagnosis Date Abnormal Pap smear Gestational diabetes 2013 MENTAL STATUS AND BEHAVIORAL OBSERVATIONS Appearance: within normal limits and casually dressed Behavior: appropriate, cooperative, and pleasant Speech: goal directed, normal pitch, normal rate, and normal volume Mood: fair Affect: mood-congruent Thought Process: within normal limits Thought Content: Delusions: No Hallucinations: No Obsessions: Yes, see Presenting Problem above Homicidal: No Suicidal: No Sensorium: alert and oriented to person, place, time and situation Cognition: grossly intact Insight: good Judgment: good Suicide/Homicidal Assessment Validated Screening and Assessment Measures [place] Suicide Severity Rating Scale Results 12/06/2023 13:40 [place] SUICIDE SEVERITY RATING SCALE (C-SSRS) Have [...] Yes Use Psych General Crisis Plan when [place] is No Risk or Low Risk No Use [facility] Suicide Safety Plan when [place] is Moderate or High Risk, or whenever clinical judgment would indicate need for full crisis plan to be done. TREATMENT PLAN Outpatient Adult Therapy Treatment Plan Treatment plan was developed on 11/30/23, treatment will continue to focus on goals below; Treatment update will occur when clinically indicated or by 05/28/2024. Patient's goals captured in patient's words: "help me manage all of the things happening and these issues. Develop skills" and "to learn how to cope with emotions in a healthier, more appropriate way" Expected family or significant other involvement: Offer Support and Crisis Support Type of Service:Individual, Psychological Evaluation, and Medication Management Patients Strengths and Facilitating Factors to care: Recognizes need for change, Seeking help, Has hobbies, Good support system, Steady employment, Financial stability, Cooperative, Able to care for own personal hygiene, and Abstain from using alcohol and/or drugs Treatment Barriers: none identified Crisis Planning: What I can do if I ever experience a crisis (much worse symptoms, severe distress or thoughts of self-harm): Art/Music and Distraction on computer/TV People I can call in the event of a crisis: Spouse/partner/significant other: Timo () and Provider: Mabel Reed, Licensed Clinical Dock Builder [phone] Additional resources I can utilize if the previous steps are ineffective (e.g: ED, hotlines): Suicide and Crisis Lifeline - 988 Patient/ Family Received Copy of Treatment Plan Duration of Treatment Frequency of Treatment Yes, sent via [employer] 16-20 sessions approximately every 2-4 weeks Patient Identified Needs/Goals Interventions Objective/ Discharge Criteria Problem/Need 1: Anxiety Cognitive Behavioral Therapy (CBT), which includes psychoeducation, cognitive restructuring, relaxation/diaphragmatic breathing, problem-solving, and behavioral activation, Motivational interviewing, and Other: Med management PHQ<5, JOSE<5, and Other: Learn/Identify 1-2effective coping skills for anxiety and implement them when feeling anxious Please choose a method to track patient's improvement based on clinical assessment: PHQ-9 Adult Data JOSE-7 Data Discharge Discussed with patient: Patient continues to need treatment Collaboration of Care: Yes, provider within [facility], information is shared automatically in medical record Is this the patients' initial treatment plan? Yes The assessment and plan was based on the information obtained during the appointment. Mabel Reed LCSW Division of Psychiatry & Behavioral Medicine [facility] [phone] documented in this encounter Plan of Treatment Upcoming Encounters Date Type Department Care Team (Late st Contact Info) Description 12/22/2023 1:30 PM EDT Telemedicine [facility] [place] [address] [place] [address] [facility] [place] [address] 12/23/2023 2:05 PM EDT NeuroDiagnostic Study Neurophysiology Isacc Raman, Elsie Joseph [facility] [place] [address] Jah Morgan, DO [address] [facility] [address] 01/14/2024 8:[address] [facility] 2nd Floor Cardiology, Elsie Joseph [place] [address] 01/14/2024 10:[address] [facility] 2nd Floor Cardiology, Elsie Joseph [place] [address] 01/14/2024 11:[address] [facility] 2nd Floor Cardiology, Elsie [place] [address] 01/14/2024 1:[address] [facility] 2nd Floor Cardiology, [place] [address] 01/19/2024 1:30 PM EDT Office Visit Gynecology/Obstetric s [facility] [address] [place] [address] Vi Catalan, [facility] [address] [facility] [place] [address] 03/29/2024 11:00 AM EDT Telemedicine Psychiatry, [place] [address] [place] [address] Za Barrera, RN ORTHOPAEDIC [address] [place] [id number] 05/01/2024 1:00 PM EDT Office Visit Dermatology [address] [place] [address] Rukhsana Segura PA-C [address] [place] [address] [place] [address] 05/30/2024 11:00 AM EDT Imaging Radiology [facility] [address] [place] [address] 10/31/2024 1:40 PM EST Office Visit Family Practice [facility] [address] [place] [address] Rukhsana Torres DO [address] [facility] [place] [address] Health Maintenance Due Date Last Done Comments HPV/Co-Test 2010 COVID-19 Vaccine ( season) 2023 08/18/2021, 01/06/2021, 12/16/2020 Influenza Vaccine (FLU shot) (#1) 2023 06/26/2014, 07/05/2012 Lipid Panel 11/12/2023 11/12/2018 Cervical Cancer Screening 11/20/2023 Pap Smear 11/20/2023 11/20/2020, 11/11, 11/26/2016, Additional history exists Mammogram 12/07/2023 12/07/2022, 12/10, 12/03/2021, Additional history exists Depression Screening 12/06/2024 12/06/2023 Diabetes Screening 11/22/2026 11/22/2023, 0 05/27/2023, 05/07/2023, [...] this encounter Medical Devices Implanted Type Area Team Leader Device Identifier Shelf Expiration Date Model / Serial / Lot Device Perm Cntrl [id number] - [id number] Implanted:Qty: 1 on 12/13/2014 by Gokul Scott DO at OR [facility] Right: Fallopian Tube [employer] 07/15/2016 [id number] / / [id number] Device Perm Cntrl [id number] - [id number] Implanted:Qty: 1 on 12/13/2014 by Gokul Scott DO at OR [facility] Left: Fallopian Tube [employer] 10/15/2016 [id number] / / [id number] documented as of this encounter Visit Diagnoses [...] and were consensually agreed upon. Care Teams Automotive Lube Technician Relationship Specialty Start Date End Date Rukhsana Torres DO [address] [place] [address] PCP - General Family Medicine 06/14/23 documented as of this encounter
--- OUTSIDE RECORDS SUMMARY | 2024-05-24 04:16 | External Medical Summary | Summary of Care ---
Author Name Unknown Organization [facility] Address [address] [place] [address] Phone [phone] Care Team Providers Care Ironing Pleater Name Role Phone MelissaBriceroula Flores DO Primary Care Provider [phone] Encounter Details Date Type Department Care Team (Late st Contact Info) Description 12/22/2023 1:30 PM EDT Telemedicine [facility] [address] [place] [address] Mabel Reed [facility] [address] [place] [address] Generalized anxiety disorder with panic attacks*; Specific phobia; Avoidant/restrictive food intake disorder Allergies No known active allergiesdocumented as of this encounter (statuses as of 12/22/2023) Medications Medication Sig Dispensed Refills Start Date [...] as of this encounter (statuses as of 12/22/2023) Active Problems Problem Noted Date Diagnosed Date [...] as of this encounter (statuses as of 12/22/2023) Resolved Problems Problem Noted Date Diagnosed Date [...] as of this encounter (statuses as of 12/22/2023) Immunizations Name Administration Dates Next Due COVID-19 mRNA, LNP-s, No Pre serve, 2-Dose Series ([employer]) 08/18/2021,01/06/2021,12/16/2020 Hepatitis B Vaccine, Recombi nant, Adjuvanted, [...] Answer Date Recorded PHQ Adult Total Score 11 12/22/2023 Hunger Vital Sign Answer Date Recorded Within [...] this encounter Progress Notes * Mabel Reed, EBD TEACHER - 12/22/2023 1:34 PM EDT Patient location: HOME. I was not in a hospital or clinic location. After connecting through [employer], patient was verified with two unique identifiers. Patient (or authorized legal technical service representative) was then informed that this [...] that I have reviewed their record in [facility] and presented the opportunity for them to ask any questions regarding the visit today. The patient agreed to participate. Provider reviewed elements of Outpatient Services Description including limits of confidentiality, how to contact the department, risks and benefits of treatment and consent for treatment. Start Time: 1:34 PM Stop Time: 2:35 PM Total direct [id number]-[id number] time: 61 minutes Confirm patient's location (and address if different from the home address documented in [facility]) at the time of this appointment: Home location confirmed ADULT THERAPY PROGRESS NOTE [place] [address] 12/22/2023 1:34 PM TYPE OF VISIT: Individual DIAGNOSIS: Generalized Anxiety Disorder with panic attacks; Specific Phobia; Avoidant/Restrictive Food Intake Disorder REASON FOR FOLLOW-UP: Individual therapy Session #: 2 SESSION FOCUS: Coping skills for anxiety SESSION SUMMARY/NOTES: Patient reports an increase in anxiety and depression symptoms since last session. She attributes to "a whirlwind of things" that took her out of her routine which has also affected her sleep. Provider utilized motivational interviewing to help patient identify anxiety triggers and problem- solve ways to handle them. Additionally, provider provided psychoeducation on exposure therapy and encouraged facing her fears with incremental exposure to help manage her anxiety more effectively. Patient successfully identified her anxiety triggers and developed some strategies to help manage them. She verbalized understanding of exposure therapy, indicated that she has tried brief ly in the past without success, but was open to trying. PROGRESS TOWARDS GOALS: Patient is learning coping skills for anxiety to enable her to identify 1-2effective coping skills to implement when anxious. Objective Measures: Jose-7 Question 12/22/2023 1:16 PM EDT - Filed by Patient Over the last 2 weeks, how often have you been bothered by the following problems? Feeling nervous, anxious, or on edge Several days Not being able to stop or control worrying Several days Worrying too much about different things Several days Trouble relaxing Several days Being so restless that is hard to sit still More than half the days Becoming easily annoyed or irritable Nearly every day Feeling afraid as if something awful might happen More than half the days Total score of all questions (range: 0 - 21) 11 (Moderate) Phq9-Depression Question 12/22/2023 1:18 PM EDT - Filed by Patient Over [...] or staying asleep, or sleeping too much Nearly everyday Feeling tired or having little energy More than half the days Poor appetite or overeating More than half the days Feeling bad about yourself - or that you are a failure, or have let yourself or your family down Several days Trouble concentrating on things, such as reading the newspaper or watching television Nearly everyday Moving or speaking so slowly that other [...] Question 3 score (range: 0 - 3) 3 Question 4 score (range: 0 - 3) 2 Question 5 score (range: 0 - 3) 2 Question 6 score (range: 0 - 3) 1 Question 7 score (range: 0 - 3) 3 Question 8 score (range: 0 - 3) 0 Question 9 score (range: 0 - 3) 0 Sum of all PHQ9 questions. (range: 0 - 27) 11 (Moderate Depression) Myc Visit Accident Related Question Question 12/22/2023 1:18 PM EDT - Filed by Patient Is [...] Suicide/Homicidal Assessment Validated Screening and Assessment Measures [place] Suicide Severity Rating Scale Results 12/22/2023 14:40 [place] SUICIDE SEVERITY RATING SCALE (C-SSRS) Have [...] Yes Use Psych General Crisis Plan when [place] is No Risk or Low Risk No Use [facility] Suicide Safety Plan when [place] is Moderate or High Risk, or whenever clinical judgment would indicate need for full crisis plan to be done. FOLLOW-UP PLAN: Return: 2 weeks Action Plan: 1. Continue Individual Therapy 2. Continue medication management with N/A. Treatment plan reviewed with the patient. Patient voices understanding and concurs with plan. Mabel Reed LCSW Division of Psychiatry & Behavioral Medicine [facility] [phone] documented in this encounter Plan of Treatment Upcoming Encounters Date Type Department Care Team (Late st Contact Info) Description 12/23/2023 2:05 PM EDT NeuroDiagnostic Study Neurophysiology Isacc [facility] [place] [facility] [place] [address] Jah Morgan, DO [facility] [address] 01/05/2024 1:30 PM EDT Telemedicine [facility], Tom Bean [address] [place] [address] Mabel Reed LCSW [address] [place] [address] 01/14/2024 8:30 AM EDT Imaging [facility] 2nd Floor Cardiology, [place] [facility] [place] [address] 01/14/2024 10:00 AM EDT Imaging [facility] 2nd Floor Cardiology, [place] [address] 01/14/2024 11:00 AM EDT Imaging [facility] 2nd Floor Cardiology, [place] [facility] [place] [address] 01/14/2024 1:00 PM EDT Imaging [facility] 2nd Floor Cardiology, [place] [facility] [place] [address] 01/18/2024 2:30 PM EDT Office Visit Gastroenterology, Mahesh Lamine [place] [facility] [place] [address] SebHerminia call CRNP [address] [facility] [place] [address] 01/19/2024 1:30 PM EDT Office Visit Gynecology/Obstetric s [facility] 132 [facility] [place] [address] Vi Catalan, [facility] [address] 03/29/2024 11:00 AM EDT Telemedicine Psychiatry, Tom Bean [address] [place] [address] Za Barrera CRNP [address] [place] [address] 05/01/2024 1:00 PM EDT Office Visit Dermatology [address] [place] [address] Rukhsana Segura PA-C [address] [place] [address] [place] [address] 05/30/2024 11:00 AM EDT Imaging Radiology [facility] 132 [facility] [place] [address] 10/31/2024 1:40 PM EST Office Visit Family Practice [facility] 132 [facility] [place] [address] Rukhsana Torres DO [address] [facility] [place] [address] Health Maintenance Due Date Last Done Comments HPV/Co-Test 2010 COVID-19 Vaccine ( season) 2023 08/18/2021, 01/06/2021, 12/16/2020 Influenza Vaccine (FLU shot) (#1) 2023 06/26/2014, 07/05/2012 Lipid Panel 11/12/2023 11/12/2018 Cervical Cancer Screening 11/20/2023 Pap Smear 11/20/2023 11/20/2020, 11/11, 11/26/2016, Additional history exists Depression, Most Recent Score >= 10 (will fire each visit until score < 10) 12/23/2023 12/22/2023 Mammogram 12/07/2024 12/07/2023, 11/12, 01/02/2022, Additional history exists Diabetes Screening 11/22/2026 11/22/2023, [...] this encounter Medical Devices Implanted Type Area Supervisor Histology Device Identifier Shelf Expiration Date Model / Serial / Lot Device Perm Cntrl [id number] - [id number] Implanted:Qty: 1 on 12/13/2014 by Gokul Scott DO at OR [facility] Right: Fallopian Tube [employer] 07/15/2016 [id number] / / [id number] Device Perm Cntrl [id number] - [id number] Implanted:Qty: 1 on 12/13/2014 by Gokul Scott DO at OR [facility] Left: Fallopian Tube [employer] 10/15/2016 [id number] / / [id number] documented as of this encounter Visit Diagnoses [...] and were consensually agreed upon. Care Teams Ironing Pleater Relationship Specialty Start Date End Date Rukhsana Torres DO [address] [place] [address] PCP - General Family Medicine 06/14/23 documented as of this encounter
--- OUTSIDE RECORDS SUMMARY | 2024-05-24 04:16 | External Medical Summary | Summary of Care ---
Author Name Unknown Organization [facility] Address [address] [place] [address] Phone [phone] Care Team Providers Care Loom Setter Name Role Phone MelissaBriceroula Flores DO Primary Care Provider [phone] Encounter Details Date Type Department Care Team (Late st Contact Info) Description 01/05/2024 1:30 PM EDT Telemedicine [facility] [address] [place] [address] Mabel Reed [facility] [address] [place] [address] Generalized anxiety disorder with panic attacks*; Specific phobia; Avoidant/restrictive food intake disorder Allergies No known active allergiesdocumented as of this encounter (statuses as of 01/07/2024) Medications Medication Sig Dispensed Refills Start Date [...] as of this encounter (statuses as of 01/07/2024) Active Problems Problem Noted Date Diagnosed Date [...] as of this encounter (statuses as of 01/07/2024) Resolved Problems Problem Noted Date Diagnosed Date [...] as of this encounter (statuses as of 01/07/2024) Immunizations Name Administration Dates Next Due COVID-19 mRNA, LNP-s, No Pre serve, 2-Dose Series ([employer]) 08/18/2021,01/06/2021,12/16/2020 Hepatitis B Vaccine, Recombi nant, Adjuvanted, [...] this encounter Progress Notes * Mabel Reed, APPLIANCE SALES ASSOCIATE - 01/05/2024 1:32 PM EDT Patient location: HOME. I was not in a hospital or clinic location. After connecting through televideo, patient was verified with two unique identifiers. Patient (or authorized legal cordage sales representative) was then informed that this [...] that I have reviewed their record in [facility] and presented the opportunity for them to ask any questions regarding the visit today. The patient agreed to participate. Provider reviewed elements of Outpatient Services Description including limits of confidentiality, how to contact the department, risks and benefits of treatment and consent for treatment. Start Time: 1:32 PM Stop Time: 2:35 PM Total direct [id number]-[id number] time: 63 minutes Confirm patient's location (and address if different from the home address documented in [facility]) at the time of this appointment: Home location confirmed ADULT THERAPY PROGRESS NOTE [place] [address] 01/05/2024 1:32 PM TYPE OF VISIT: Individual DIAGNOSIS: Generalized Anxiety Disorder with panic attacks; Specific Phobia; Avoidant/Restrictive Food Intake Disorde REASON FOR FOLLOW-UP: Individual therapy Session #: [...] Suicide/Homicidal Assessment Validated Screening and Assessment Measures [place] Suicide Severity Rating Scale Results 01/05/2024 13:35 [...] Yes Use Psych General Crisis Plan when [place] is No Risk or Low Risk No Use [facility] Suicide Safety Plan when [place] is Moderate or High Risk, or whenever clinical judgment would indicate need for full crisis plan to be done. FOLLOW-UP PLAN: Return: 3 weeks Action Plan: 1. Continue Individual Therapy 2. Continue medication management with N/A. Treatment plan reviewed with the patient. Patient voices understanding and concurs with plan. Mabel Reed LCSW Division of Psychiatry & Behavioral Medicine [facility] [phone] documented in this encounter Plan of Treatment Upcoming Encounters Date Type Department Care Team (Late st Contact Info) Description 01/19/2024 1:30 PM EDT Office Visit Gynecology/Obstetrics [facility] 132 [facility] [place] [address] Vi Catalan [address] [address] 01/24/2024 1:30 PM EDT Telemedicine Psychology, [address] [address] Mabel Reed LCSW [address] [place] [address] 02/03/2024 9:45 AM EDT Imaging [facility] 132 [facility] [place] [address] 02/17/2024 12:30 PM EDT Office Visit Gastroenterology, [facility] [address] [facility] [place] [address] Hermniia Sun CRNP 132 [facility] [place] [address] 03/29/2024 11:00 AM EDT Telemedicine Psychiatry, [place] [address] [place] [address] Za Barrera CRNP [address] [place] [phone] 05/01/2024 1:00 PM EDT Office Visit Dermatology [address] [place] [address] Rukhsana Segura PA-C [address] [place] [address] [place] [address] 05/30/2024 11:00 AM EDT Imaging Radiology [facility] [address] [place] [address] 10/31/2024 1:40 PM EST Office Visit Family Practice [facility] [address] [place] [address] Rukhsana Torres DO [address] [place] [address] Health Maintenance Due Date Last Done Comments HPV/Co-Test 2010 COVID-19 Vaccine ( season) 2023 08/18/2021, 01/06/2021, 12/16/2020 Influenza Vaccine (FLU shot) (#1) 2023 06/26/2014, 07/05/2012 Lipid Panel 11/12/2023 11/12/2018 Cervical Cancer Screening 11/20/2023 Pap Smear 11/20/2023 11/20/2020, 11/11, 11/26/2016, Additional history exists Mammogram 12/07/2024 12/07/2023, 11/12, 01/02/2022, Additional history [...] this encounter Medical Devices Implanted Type Area Cafe Worker Device Identifier Shelf Expiration Date Model / Serial / Lot Device Perm Cntrl [id number] - [id number] Implanted:Qty: 1 on 12/13/2014 by Gokul Scott DO at OR [facility] Right: Fallopian Tube [employer] 07/15/2016 [id number] / / [id number] Device Perm Cntrl [id number] - [id number] Implanted:Qty: 1 on 12/13/2014 by Gokul Scott DO at OR [facility] Left: Fallopian Tube [employer] 10/15/2016 [id number] / / [id number] documented as of this encounter Visit Diagnoses [...] and were consensually agreed upon. Care Teams Loom Setter Relationship Specialty Start Date End Date Rukhsana Torres DO [address] [place] [address] PCP - General Family Medicine 06/14/23 documented as of this encounter
--- OUTSIDE RECORDS SUMMARY | 2024-05-24 04:16 | External Medical Summary | Summary of Care ---
Author Name Unknown Organization [facility] Address [address] [place] [address] Phone [phone] Care Team Providers Care Beader Name Role Phone Rukhsana Torres DO Primary Care Provider [phone] Reason for Visit * Reason Onset Date Comments Appointment 11/30/2023 Encounter Details Date Type Department Care Team (Late st Contact Info) Description 11/30/2023 Telephone Margarita [place] [address] [place] [address] FebruaryClaudia LCSW [address] [place] [address] Appointment Allergies No known active allergiesdocumented as of [...] on file documented as of this encounter Miscellaneous Notes * Telephone Encounter - Tiffanie Horowitz OSA - 11/30/2023 1:16 PM EST Referral Details after Behavioral Health Intake: Referral: Internal Psych Resource: scheduled with Psychiatry and Therapy documented in this encounter Plan of Treatment Upcoming Encounters Date Type Department Care Team (Late st Contact Info) Description 12/06/2023 1:30 PM EST Telemedicine Psychology, [place] [address] [place] [address] Mabel Reed, [facility] [address] [place] [address] 12/07/2023 1:30 PM EST Imaging Radiology [facility] 1st Floor, [address] [place] [address] 12/23/2023 2:05 PM EDT NeuroDiagnostic Study Neurophysiology [facility], [address] [place] [address] Jah Morgan, DO [facility] [address] 01/14/2024 8:30 AM EDT Imaging [facility] 2nd Floor Cardiology, [place] [address] 01/14/2024 10:00 AM EDT Imaging [facility] 2nd Floor Cardiology, [address] [place] [address] 01/14/2024 11:00 AM EDT Imaging [facility] 2nd Floor Cardiology, [place] [address] 01/14/2024 1:00 PM EDT Imaging [facility] 2nd Floor Cardiology, [place] [address] 01/19/2024 1:30 PM EDT Office Visit Gynecology/Obstetric s [facility] [address] [facility] [place] [address] Vi Catalan, LU[place] 400 [facility] [place] [address] 03/29/2024 11:00 AM EDT Telemedicine Psychiatry, [place] [address] [place] [address] Za Barrera CRNP [address] [place] [address] 05/01/2024 1:00 PM EDT Office Visit Dermatology [address] [place] [address] Rukhsana Segura PA-C [address] [place] [address] [place] [address] 05/30/2024 11:00 AM EDT Imaging Radiology [facility] [address] [facility] [place] [address] 10/31/2024 1:40 PM EST Office Visit Family Practice [facility] [address] [facility] [place] [address] Rukhsana Torres DO 132 [facility] [place] [address] Health Maintenance Due Date Last Done Comments HPV/Co-Test 2010 Depression Screening 04/29/2021 04/29/2020 COVID-19 Vaccine ( season) 2023 08/18/2021, 01/06/2021, 12/16/2020 Influenza Vaccine (FLU shot) (#1) 2023 06/26/2014, 07/05/2012 Lipid Panel 11/12/2023 11/12/2018 Cervical Cancer Screening 11/20/2023 Pap Smear 11/20/2023 11/20/2020, 11/11, 11/26/2016, Additional history exists Mammogram 12/07/2023 12/07/2022, /02/2022, 12/03/2021, Additional history exists Diabetes Screening 11/22/2026 [...] this encounter Medical Devices Implanted Type Area Floor Layer Tile Device Identifier Shelf Expiration Date Model / Serial / Lot Device Perm Cntrl [id number] - [id number] Implanted:Qty: 1 on 12/13/2014 by Gokul Scott DO at OR [facility] Right: Fallopian Tube [employer] 07/15/2016 [id number] / / [id number] Device Perm Cntrl [id number] - [id number] Implanted:Qty: 1 on 12/13/2014 by Gokul Scott DO at OR [facility] Left: Fallopian Tube [employer] 10/15/2016 [id number] / / [id number] documented as of this encounter Advance Directives Latest Code Status on File Code Status Date Activated Date Inactivated Comments Full Code 12/13/2014 10:35 AM 12/13/2014 4:05 PM This o rder reflects the patients wishes and were consensually agreed upon. Care Teams Beader Relationship Specialty Start Date End Date Rukhsana Torres DO [address] [place] [address] PCP - General Family Medicine 06/14/23 documented as of this encounter
--- OUTSIDE RECORDS SUMMARY | 2024-05-24 04:16 | External Medical Summary | Summary of Care ---
Author Name Unknown Organization [facility] Address [address] [facility] [place] [address] Phone [phone] Care Team Providers Care Evaporator Repairer Name Role Phone Rukhsana Torres DO Primary Care Provider [phone] Reason for Visit * Reason Comments EMG Encounter Details Date Type Department Care Team (Late st Contact Info) Description 12/23/2023 2:05 PM EDT NeuroDiagnostic Study Neurophysiology [facility] [address] [place] [address] Jah Morgan DO [address] [place] [facility] [place] [address] Arrived Allergies No known active allergiesdocumented as of this encounter (statuses as of 12/23/2023) Medications Medication Sig Dispensed Refills Start Date [...] as of this encounter (statuses as of 12/23/2023) Active Problems Problem Noted Date Diagnosed Date [...] as of this encounter (statuses as of 12/23/2023) Resolved Problems Problem Noted Date Diagnosed Date Resolved Date 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 04/26/2023 10/28/2023 H/O gestational diabetes in prior , currently 01/29/2014 10/09/2014 Overview: Was diet controlled Early glucola-elevated; 3hr gtt normal- 1 value elevated, 1 value 1 pt from abnormal Gestational diabetes 10/10/20122 014 Overview: Needs nutrition consult (done) and [...] as of this encounter (statuses as of 12/23/2023) Immunizations Name Administration Dates Next Due COVID-19 mRNA, LNP-s, No Pre serve, 2-Dose Series ([employer]) 08/18/2021,01/06/2021,12/16/2020 Hepatitis B Vaccine, Recombi nant, Adjuvanted, [...] as of this encounter Progress Notes * Jah Morgan DO - 12/23/2023 2:38 PM EDT [facility] Neurophysiology Laboratory Electromyography Report Name: Cheryl Gabriel Date of : 1980 (43 year old) Sex: female Tech: Charles Job Referring Physician: Rukhsana Torres DO Examining Physician: Jah Morgan DO Examination Date: 12/23/2023 Ht Readings from Last 1 Encounters: 08/27/23 1.676 m (5' 5.98") Wt Readings from Last 1 Encounters: 10/28/23 79.8 kg (176 lb) Impression: Normal study. There is no electrodiagnostic evidence of a sensory or motor neuropathy, polyneuropathy, or tarsal tunnel syndrome in the right lower extremity. History and Physical examination: A 43-year-old female with intermittent numbness and tingling in her right foot predominantly on the plantar surface. Sensation is intact to light touch. EMG/NCS performed for evaluation of neuropathy versus tarsal tunnel syndrome. Nerve Conduction Studies Examination Findings: Nerve conduction studies were performed in the right lower extremity and in select nerves in the left lower extremity. The right sural sensory nerve study showed a normal peak latency, normal amplitude, and normal conduction velocity. The bilateral medial and lateral plantar sensory nerve responseswere normal. The right peroneal and tibial motor nerve study showed normal distal latencies, normalamplitudes, and normal conduction velocities. Please see the attached document for raw data or the scanned document in [facility]. Reference values are from the [facility] normative data guidelines that are attached at the end ofthis document. Jah Morgan DO documented in this encounter Plan of Treatment Upcoming Encounters Date Type Department Care Team (Late st Contact Info) Description 01/05/2024 1:30 PM EDT Telemedicine [facility] [address] [place] [address] Mabel Reed, [facility] [address] [place] [address] 01/14/2024 8:30 AM EDT Imaging [facility] 2nd Floor [address]iology, [address] [address] 01/14/2024 10:00 AM EDT Imaging [facility] 2nd Floor Cardiology, [address] [place] [address] 01/14/2024 11:00 AM EDT Imaging [facility] 2nd Floor Cardiology, [address] [address] 01/14/2024 1:00 PM EDT Imaging [facility] 2nd Floor Cardiology, [address] [place] [address] 01/18/2024 2:30 PM EDT Office Visit Gastroenterology, [address] [place] [address] Herm[facility] Sun CRNP [address] [facility] [address] 01/19/2024 1:30 PM EDT Office Visit Gynecology/Obstetrics [address] [place] [address] Vi Catalan, [address] [place] [address] 03/29/2024 11:00 AM EDT Telemedicine Psychiatry, [place] [address] [place] [address] Za Barrera CRNP [address] [place] [id number] 05/01/2024 1:00 PM EDT Office Visit Dermatology [address] [place] [address] Rukhsana Segura PA-C [address] [place] [address] [place] [address] 05/30/2024 11:00 AM EDT Imaging Radiology [facility] [address] [place] [address] 10/31/2024 1:40 PM EST Office Visit Family Practice [facility] [address] [facility] [place] [address] Rukhsana Torres DO [address] [place] [address] Health Maintenance Due Date Last Done Comments [...] this encounter Medical Devices Implanted Type Area Resource Conservation Manager Device Identifier Shelf Expiration Date Model / Serial / Lot Device Perm Cntrl [id number] - [id number] Implanted:Qty: 1 on 12/13/2014 by Gokul Scott DO at OR [facility] Right: Fallopian Tube [employer] 07/15/2016 [id number] / / [id number] Device Perm Cntrl [id number] - [id number] Implanted:Qty: 1 on 12/13/2014 by Gokul Scott DO at OR [facility] Left: Fallopian Tube [employer] 10/15/2016 [id number] / / [id number] documented as of this encounter Visit Diagnoses Diagnosis Paresthesias [R20.2]- Primary Disturbance of skin sensation documented in this encounter Advance Directives Latest Code Status on File Code Status Date Activated Date Inactivated Comments Full Code 12/13/2014 10:35 AM 12/13/2014 4:05 PM This o rder reflects the patients wishes and were consensually agreed upon. Care Teams Evaporator Repairer Relationship Specialty Start Date End Date Rukhsana Torres DO [address] [place] [address] PCP - General Family Medicine 06/14/23 documented as of this encounter
[2024-05-24 05:50] LABS: Basophils # (auto) 0.02 K/uL (0.00-0.20); Basophils % (auto) 0.3 %; Eosinophils # (auto) 0.06 K/uL (0.00-0.50); Eosinophils % (auto) 0.9 %; Hematocrit (blood only) 35.4 % (37.0-47.0); Immature Granulocytes # (auto) 0.01 K/uL (0.01-0.20); Immature Granulocytes % (auto) 0.2 %; Lymphocytes # (auto) 2.14 K/uL (1.20-3.40); Lymphocytes % (auto) 32.3 %; Mean Corpuscular Hemoglobin 26.4 pg (25.0-34.0); Mean Corpuscular Hgb Conc 33.9 g/dL (32.0-36.0); Mean Platelet Volume 9.8 fL (9.4-12.4); Monocytes # (auto) 0.41 K/uL (0.11-0.59); Monocytes % (auto) 6.2 %; Neutrophils # (auto) 3.99 K/uL (1.40-6.50); Neutrophils % (auto) 60.1 %; Platelet Count 222 K/uL (130-400); RDW Coefficient of Variation 13.4 % (11.5-14.5); RDW Standard Deviation 38.2 fL (36.4-46.3); Red Blood Count 4.54 M/uL (4.20-5.40); White Blood Count 6.63 K/ul (4.8-10.8)
[2024-05-24 06:03] LABS: BUN Creatinine Ratio 15.1 (10-20); Calcium 8.6 mg/dl (8.6-10.3); Creatinine Clr Calc Pharmacy 143.4 ml/min; Est GFR (African American) 134.8 ml/min; Est GFR (Non-African American) 116.3 ml/min; Potassium 3.5 mmol/L (3.5-5.1)
[2024-05-24 06:27] LABS: ANTI-Xa, UFH(UnfractionatedHep 0.74 IU/ml (0.3-0.7)
--- NOTE | 2024-05-24 06:59 | XRay Report ---
XR chest 1V portable HISTORY: Chest pain, nonspecific COMPARISON: None. FINDINGS: The lungs are clear. Cardiac silhouette is normal in size. No pleural effusions. No pneumot horax. IMPRESSION: No acute process. ACT 112: Negative or not required by law. Electronically signed by: Kimani Wahl M.D. 05/24/2024 6:58 AM
--- NOTE | 2024-05-24 07:06 | XRay Report ---
KUB CLINICAL HISTORY: Right upper quadrant abdominal pain. COMPARISON STUDY: None. FINDINGS: Contraceptive wires are incidentally noted. The bowel gas pattern is normal. Moderate stool is present. No urinary calculi are identified. IMPRESSION: Unremarkable KUB. ACT 112: Negative or not required by law. Electronically signed by: Mauricio Friedman M.D. 05/24/2024 7:05 AM
--- NOTE | 2024-05-24 09:09 | Electrocardiogram Report ---
Test Reason : Blood Pressure : */* mmHG Vent. Rate : 91 BPM Atrial Rate : 91 BPM P-R Int : 152 ms QRS Dur : 70 ms QT Int : 368 ms P-R-T Axes : 50 49 50 degrees QTcB Int : 452 ms Normal sinus rhythm with sinus arrhythmia Low voltage QRS Borderline ECG No previous ECGs available Confirmed by Adam Gamez ([id number]) on 05/24/2024 9:09:33 AM Referred By: REFERRED SELF Confirmed By: Adam Gamez
--- NOTE | 2024-05-24 12:11 | Ultrasound Report ---
BILATERAL LOWER EXTREMITY VENOUS DOPPLER HISTORY: Screening study of patient with pulmonary emboli Acute PE. DVT? COMPARISON STUDY: CTA chest 05/23/2024 FINDINGS: There is normal compressibility, flow, and augmentation within the bilateral lower extremit y deep venous systems. IMPRESSION: No DVT within the right or left lower extremity. ACT 112: Negative or not required by law. Electronically signed by: Saul Osuna M.D. 05/24/2024 12:09 PM
[2024-05-24 13:34] LABS: ANTI-Xa, UFH(UnfractionatedHep 0.56 IU/ml (0.3-0.7)
[2024-05-24] MEDS: ACETAMINOPHEN 325 MG TAB PO PRN (15:37)
[2024-05-24] MEDS ORDERED: hydrOXYzine HCl 10 MG TAB PO PRN (16:05)
[2024-05-24] MEDS: PANTOprazole 40 MG TAB PO SCH (16:15)
[2024-05-24] MEDS: FAMOTIDINE 20 MG TAB PO SCH (16:15)
[2024-05-24] MEDS: MULTIVITAMIN TAB PO SCH (16:15)
[2024-05-24] MEDS: CHOLECALCIFEROL 25 MCG (1000 UNITS) TAB PO SCH (16:15)
[2024-05-24] MEDS: CYANOCOBALAMIN (B-12) 500 MCG TABLET PO SCH (16:15)
--- NOTE | 2024-05-24 16:17 | Hospitalist Progress Note ---
Date of Service May 24, 2024 Assessment & Plan (1) Embolism, pulmonary with infarction: Plan: In summary, 43-year-old female with past medical significant for hyperinsulinism, nonsustained ventricular tachycardia, GERD, overactive bladder, chronic pain, obesity, chronic fatigue, general anxiety disorder presents with right-sided chest pain and found to have acute PE. Acute pulmonary embolism with infarction Hypercoagulable workup sent by ER Started on IV heparin, will transition to apixaban 10 mg twice daily for 7 days and then 5 mg twice daily Echocardiogram reviewed and patient has normal left ventricular function and no appreciable valvular disease. Venous duplex scan negative for DVT in either extremity r Monitor in the hospital This is an unprovoked PE and she may need lifelong anticoagulation. This was discussed in detail History of nonsustained ventricular tachycardia Continue to monitor GERD Continue famotidine and omeprazole DVT prophylaxis IV heparin with conversion to apixaban Disposition Med/telemetry Anxiety She is reluctant to take anything we will give hydroxyzine as needed and she is agreeable to that. Full code. Total 51 minutes was spent in review of studies, imaging, counseling and care coordination Admission and Anticipated Discharge Date Admission Date: May 23, 2024 Subjective Patient seen at bedside. She is quite anxious Chest pain has improved No resting sob Review of Systems Review of Systems: Constitutional- no fever; no weight loss Eyes- no acute visual changes ENT- no sinus drainage; no pharyngitis Pulmonary- no cough, no wheezing, no shortness of breath at rest. Mild CAPPS Cardiac- + chest pain improved, no palpitations, no orthopnea, no dependent edema GI- no nausea, no vomiting, no diarrhea, no melena, no hematochezia - no dysuria, no hematuria Musculoskeletal- no arthralgias, no myalgias, no calf pain Derm- no rashes, no new skin lesions, no changing skin lesions Hematologic- no unusual bruising, no unusual bleeding Lymphatics- no adenopathy Endocrine- no polyuria or polydipsia; no heat or cold intolerance Neuro- no headaches, no focal neurologic symptoms Psych- + anxiety, no depression Physical Exam Physical Exam: General- Alert O X 3. anxious Head- atraumatic Eyes- PERRL, EOMI, anicteric ENT- oropharynx clear Neck- supple, no JVD, no adenopathy, no thyromegaly; carotids +2/2, no bruits appreciated Lungs- clear to auscultation and percussion Heart- regular rhythm; no murmur, no gallop, no rub appreciated Abdomen- normal bowel sounds, soft, nontender, no masses or hepatosplenomegaly Extremities- no pretibial edema, no calf tenderness; peripheral pulses intact, Neg Isaac sign Neuro- alert, oriented x 3; PERRL, EOMI; no facial palsy; no dysarthria; motor 5/5 bilaterally; no cogwheel rigidity; patellar DTRs +2/2; toes downgoing bilaterally; finger to nose intact bilaterally Skin- warm & dry Results & Data Results & Data Vital Signs (Past 12 Hours) Vital Signs Temp Pulse Pulse Pulse Resp BP Pulse Ox 05/24/24 15:20 96 H 05/24/24 15:09 36.6 C 87 16 111/73 98 05/24/24 11:11 36.9 C 86 16 101/67 98 05/24/24 07:40 36.9 C 82 16 106/69 97 05/24/24 07:40 81 05/24/24 04:56 36.9 C 71 16 105/69 93 O2 Del Method 05/24/24 15:20 05/24/24 15:09 Room Air 05/24/24 11:11 Room Air 05/24/24 07:40 Room Air 05/24/24 07:40 05/24/24 04:56 Room Air Laboratory Results Laboratory Results WBC 6.63 K/ul (4.8-10.8) 05/24/24 05:27 RBC 4.54 M/uL (4.20-5.40) 05/24/24 05:27 Hgb 12.0 g/dl (12.0-16.0) 05/24/24 05:27 Hct 35.4 % (37.0-47.0) L 05/24/24 05:27 MCV 78.0 fL (80.0-100.0) L 05/24/24 05:27 MCH 26.4 pg (25.0-34.0) 05/24/24 05:27 MCHC 33.9 g/dL (32.0-36.0) 05/24/24 05:27 RDW Std Deviation 38.2 fL (36.4-46.3) 05/24/24 05:27 RDW Coeff of Gomez 13.4 % (11.5-14.5) 05/24/24 05:27 Plt Count 222 K/uL (130-400) 05/24/24 05:27 MPV 9.8 fL (9.4-12.4) 05/24/24 05:27 Immature Gran % (Auto) 0.2 % 05/24/24 05:27 Neut % (Auto) 60.1 % 05/24/24 05:27 Lymph % (Auto) 32.3 % 05/24/24 05:27 [place] % (Auto) 6.2 % 05/24/24 05:27 Eos % (Auto) 0.9 % 05/24/24 05:27 Baso % (Auto) 0.3 % 05/24/24 05:27 Neut # (Auto) 3.99 K/uL (1.40-6.50) 05/24/24 05:27 Lymph # (Auto) 2.14 K/uL (1.20-3.40) 05/24/24 05:27 [place] # (Auto) 0.41 K/uL (0.11-0.59) 05/24/24 05:27 Eos # (Auto) 0.06 K/uL (0.00-0.50) 05/24/24 05:27 Baso # (Auto) 0.02 K/uL (0.00-0.20) 05/24/24 05:27 Immature Gran # (Auto) 0.01 K/uL (0.01-0.20) 05/24/24 05:27 PT 10.9 Seconds (9.0-12.0) 05/23/24 19:57 INR 1.0 (0.9-1.1) 05/23/24 19:57 APTT 28 Seconds (21-31) 05/23/24 19:57 PTT Ratio 1.0 05/23/24 19:57 D-Dimer 900 ug/L FEU (0-500) H* 05/23/24 19:57 Heparin Anti-Xa, Unfract 0.56 IU/ml (0.3-0.7) 05/24/24 13:00 Sodium 137 mmol/L (136-145) 05/24/24 05:27 Potassium 3.5 mmol/L (3.5-5.1) 05/24/24 05:27 Chloride 109 mmol/L (98-107) H 05/24/24 05:27 Carbon Dioxide 23 mmol/L (21-32) 05/24/24 05:27 Anion Gap 5 (3-11) 05/24/24 05:27 BUN 8 mg/dl (6-23) 05/24/24 05:27 Creatinine 0.53 mg/dl (0.6-1.2) L 05/24/24 05:27 Est Cr Clr Drug Dosing 143.4 ml/min 05/24/24 05:27 Est GFR ( Amer) 134.8 ml/min 05/24/24 05:27 Est GFR (Non-Af Amer) 116.3 ml/min 05/24/24 05:27 BUN/Creatinine Ratio 15.1 (10-20) 05/24/24 05:27 Glucose 95 mg/dl (70-99(Fasting)) 05/24/24 05:27 Calcium 8.6 mg/dl (8.6-10.3) 05/24/24 05:27 Magnesium 2.0 mg/dl (1.7-2.4) 05/24/24 05:27 Total Bilirubin 0.8 mg/dl (0.2-1.0) 05/23/24 19:57 AST 14 U/L (13-39) 05/23/24 19:57 ALT 10 U/L (7-52) 05/23/24 19:57 Alkaline Phosphatase 96 U/L (34-104) 05/23/24 19:57 Troponin I High Sens < 2.3 pg/ml (0-14) 05/23/24 19:57 Total Protein 6.9 gm/dl (6.0-8.3) 05/23/24 19:57 Albumin 4.0 gm/dl (3.4-5.0) 05/23/24 19:57 Globulin 2.9 gm/dl (2.5-4.0) 05/23/24 19:57 Albumin/Globulin Ratio 1.4 (0.9-2) 05/23/24 19:57 Lipase 24 U/L (11-82) 05/23/24 19:57 HCG, Qual Negative (Negative) 05/23/24 19:57 Urine Color Cancelled 05/23/24 Unknown Urine Appearance Cancelled 05/23/24 Unknown Urine pH Cancelled 05/23/24 Unknown Ur Specific [place] Cancelled 05/23/24 Unknown Urine Protein Cancelled 05/23/24 Unknown Urine Glucose (UA) Cancelled 05/23/24 Unknown Urine Ketones Cancelled 05/23/24 Unknown Urine Blood Cancelled 05/23/24 Unknown Urine Nitrite Cancelled 05/23/24 Unknown Urine Bilirubin Cancelled 05/23/24 Unknown Urine Urobilinogen Cancelled 05/23/24 Unknown Ur Leukocyte Esterase Cancelled 05/23/24 Unknown Urine WBC (Auto) Cancelled 05/23/24 Unknown Urine RBC (Auto) Cancelled 05/23/24 Unknown U Hyaline Cast (Auto) Cancelled 05/23/24 Unknown U Epithel Cells (Auto) Cancelled 05/23/24 Unknown Urine Bacteria (Auto) Cancelled 05/23/24 Unknown Ur Renal Epithelial Cell Cancelled 05/23/24 Unknown Wendell Biurate Crystals Cancelled 05/23/24 Unknown Calcium Oxalate Crystal Cancelled 05/23/24 Unknown Leucine Crystals Cancelled 05/23/24 Unknown Cystine Crystals Cancelled 05/23/24 Unknown Uric Acid Crystals Cancelled 05/23/24 Unknown Triple Phos Crystals Cancelled 05/23/24 Unknown Sulfonamide Crystals Cancelled 05/23/24 Unknown Cholesterol Crystals Cancelled 05/23/24 Unknown Talc Crystals Cancelled 05/23/24 Unknown Tyrosine Crystals Cancelled 05/23/24 Unknown Hippuric Acid Crystals Cancelled 05/23/24 Unknown Unidentified Crystals Cancelled 05/23/24 Unknown Amorphous Sediment Cancelled 05/23/24 Unknown Epithelial Casts Cancelled 05/23/24 Unknown Hyaline Casts Cancelled 05/23/24 Unknown Granular Casts Cancelled 05/23/24 Unknown Waxy Casts Cancelled 05/23/24 Unknown RBC Casts Cancelled 05/23/24 Unknown WBC Casts Cancelled 05/23/24 Unknown Other Casts Cancelled 05/23/24 Unknown Urine Mucus Cancelled 05/23/24 Unknown Urine Other Cancelled 05/23/24 Unknown Urine Trichomonas Cancelled 05/23/24 Unknown Urine Yeast Cancelled 05/23/24 Unknown Urine Sperm Cancelled 05/23/24 Unknown Ur Oval Fat Bodies Cancelled 05/23/24 Unknown Impressions Chest X-Ray 05/23/24 19:24 XR chest 1V portable HISTORY: Chest pain, nonspecific COMPARISON: None. FINDINGS: The lungs are clear. Cardiac silhouette is normal in size. No pleural effusions. No pneumothorax. IMPRESSION: No acute process. ACT 112: Negative or not required by law. Electronically signed by: Kimani Wahl M.D. 05/24/2024 6:58 AM Gallbladder Ultrasound 05/23/24 19:29 Exam(s): US GALLBLADDER EXAM: US Abdomen Limited, Gallbladder CLINICAL HISTORY: Reason for exam: RUQ pain. TECHNIQUE: Real-time ultrasound of the right upper quadrant with image documentation. COMPARISON: CTA chest done earlier. FINDINGS: Liver: Unremarkable. Gallbladder: Normally distended. No gallstones, wall thickening or acute cholecystitis. Common bile duct: CBD 3 mm. No dilation. Pancreas: Not visualized, due to bowel gas. Right kidney: No hydronephrosis. IMPRESSION: No acute findings. No hydronephrosis, cholelithiasis or acute cholecystitis. Electronically signed by: Stacey Smith M.D. 05/23/24 21:56 PM KUB X-Ray 05/23/24 19:29 KUB CLINICAL HISTORY: Right upper quadrant abdominal pain. COMPARISON STUDY: None. FINDINGS: Contraceptive wires are incidentally noted. The bowel gas pattern is normal. Moderate stool is present. No urinary calculi are identified. IMPRESSION: Unremarkable KUB. ACT 112: Negative or not required by law. Electronically signed by: Mauricio Friedman M.D. 05/24/2024 7:05 AM Abdomen/Pelvis CT 05/23/24 20:41 Exam(s): CT ABDOMEN + PELVIS With Contrast IV Amt: 119 ml optiray 320 EXAM: CT Abdomen and Pelvis With Intravenous Contrast CLINICAL HISTORY: Reason for exam: RUQ pain. TECHNIQUE: Axial computed tomography images of the abdomen and pelvis with intravenous contrast. CTDI is 24.35 mGy and DLP is 1261 mGy-cm. Automated exposure control was utilized for the study. A dose lowering technique was utilized adhering to the principles of ALARA. CONTRAST: Patient received 119 ml optiray 320 of IV contrast COMPARISON: Gallbladder ultrasound done earlier. FINDINGS: Lung bases: 1.6 cm cyst in the right breast, not well evaluated by CT, correlate with mammogram and/or ultrasound. There is a separately dictated CTA chest describing a right lower lobe PE. See that separately dictated report. Liver: Unremarkable. Gallbladder and bile ducts: Normal gallbladder. No ductal dilation. Pancreas: No ductal dilation. Spleen: Unremarkable. Adrenals: Unremarkable. Kidneys and ureters: No pyelonephritis or hydronephrosis. Stomach and bowel: No obstruction. Appendix: Normal. Intraperitoneal space: No free air or fluid. Bones/joints: No acute fracture. Soft tissues: Unremarkable. Vasculature: No aortic aneurysm. Lymph nodes: No enlarged lymph nodes. Bladder: No stones. Reproductive: Within normal limits for patient's age and this technique, with bilateral ovarian follicles, largest on the left measuring 1.5 cm. IMPRESSION: 1. No acute intra-abdominal or intrapelvic abnormality. 2. Probable cyst in the right breast, not well evaluated by CT. Consider ultrasound correlation. 3. Presumed physiologic follicles bilateral ovaries. No pelvic free fluid. Electronically signed by: Stacey Smith M.D. 05/23/24 22:09 PM Chest CTA 05/23/24 20:41 CR Exam(s): CTA CHEST IV Amt: 119 ml optiry 320 EXAM: CT Angiography Chest With Intravenous Contrast CLINICAL HISTORY: Reason for exam: PE. TECHNIQUE: Axial computed tomographic angiography images of the chest with intravenous contrast. CTDI is 24.82 mGy and DLP is 720.9 mGy-cm. Automated exposure control was utilized for the study. A dose lowering technique was utilized adhering to the principles of ALARA. 119 ML Optiray 320 IV contrast is given. MIP reconstructed images were created and reviewed. Mild breathing motion artifact. COMPARISON: None. FINDINGS: Pulmonary arteries: Small volume, occlusive subsegmental right lower lobe pulmonary embolism. No other pulmonary embolism. Aorta: No aneurysm. Lungs: Mild nodular interstitial infiltrates posterior right lower lobe lung, nonspecific, possible atelectasis, infiltrate or infarct. Pleural space: Mild right effusion. No pneumothorax. Heart: No cardiomegaly. No significant pericardial effusion. No evidence of elevated right heart pressures. Bones/joints: No acute fracture. Soft tissues: Unremarkable. Lymph nodes: No enlarged lymph nodes. IMPRESSION: 1. Mild burden occlusive subsegmental right lower lobe PE. 2. Mild right pleural effusion and infiltrate/infarct right lower lobe lung. Communications: Call Doctor Pulmonary Embolism Electronically signed by: Stacey Smith M.D. 05/23/24 21:49 PM Venous Doppler Study 05/24/24 00:59 BILATERAL LOWER EXTREMITY VENOUS DOPPLER HISTORY: Screening study of patient with pulmonary emboli Acute PE. DVT? COMPARISON STUDY: CTA chest 05/23/2024 FINDINGS: There is normal compressibility, flow, and augmentation within the bilateral lower extremity deep venous systems. IMPRESSION: No DVT within the right or left lower extremity. ACT 112: Negative or not required by law. Electronically signed by: Saul Osuna M.D. 05/24/2024 12:09 PM Medications Administered Current Inpatient Medications Acetaminophen (Acetaminophen 325 Mg Tab) 650 mg PO Q4H PRN PRN Reason: Pain or Fever Stop: 06/23/24 00:58 Last Admin: 05/24/24 15:37 Dose: 650 mg Apixaban (Apixaban 5 Mg Tablet) 10 mg PO BID [facility] Stop: 05/31/24 09:01 Cyanocobalamin (Cyanocobalamin (B-12) 500 Mcg Tablet) 500 mcg PO DAILY [facility] Stop: 06/23/24 08:59 Last Admin: 05/24/24 16:15 Dose: Not Given Famotidine (Famotidine 20 Mg Tab) 20 mg PO AMHS [facility] Stop: 06/23/24 08:59 Last Admin: 05/24/24 16:15 Dose: Not Given Hydroxyzine HCl (Hydroxyzine Hcl 10 Mg Tab) 10 mg PO Q6 PRN PRN Reason: Anxiety Stop: 06/23/24 16:04 Heparin Sodium/Dextrose (Heparin Sodium/Dextrose) 25,000 units in 500 mls @ 23 mls/hr IV .[id number] [facility]; Protocol Stop: 06/22/24 22:29 Last Titration: 05/24/24 14:18 Dose: 1,150 units/hr, 23 mls/hr Miscellaneous (Plecanatide [Trulance] 3 Mg - Order Awaiting Action) 1 each N/A QS [facility] Stop: 06/23/24 07:59 Last Admin: 05/24/24 16:16 Dose: Not Given Miscellaneous (Stop Order: Heparin Gtt) 1 each N/A ONE ONE Stop: 05/24/24 20:01 Multivitamins (Multivitamin Tab) 1 tab PO DAILY [facility] Stop: 06/23/24 08:59 Last Admin: 05/24/24 16:15 Dose: Not Given Nitroglycerin (Nitroglycerin Sl 0.4 Mg/Tab Tab) 0.4 mg SL Q5M PRN PRN Reason: Chest Pain Stop: 06/23/24 00:58 Pantoprazole Sodium (Pantoprazole 40 Mg Tab) 40 mg PO QAM [facility] Stop: 06/23/24 08:59 Last Admin: 05/24/24 16:15 Dose: Not Given Polyethylene Glycol (Polyethylene (Miralax) 17 Gm Pack) 17 gm PO DAILY PRN PRN Reason: Constipation Stop: 06/23/24 00:58 Tramadol HCl (Tramadol Hcl 50 Mg Tablet) 50 mg PO Q6H PRN PRN Reason: Severe Pain (Scale 7, 8, 9,10) Stop: 06/23/24 00:58 Vitamin D (Cholecalciferol 25 Mcg (1000 Units) Tab) 50 mcg PO DAILY [facility] Stop: 06/23/24 08:59 Last Admin: 05/24/24 16:15 Dose: Not Given
[2024-05-24] MEDS ORDERED: Nursing to Pharmacy Communication SCH (20:30)
[2024-05-24] MEDS: APIXABAN 5 MG TABLET PO SCH (21:43)
[2024-05-25 07:02] LABS: ANTI-Xa, UFH(UnfractionatedHep > 1.50 IU/ml (0.3-0.7)
[2024-05-25 08:07] VITALS: RESP 18; TEMP 99
[2024-05-25 11:24] VITALS: PULSE 81; O2SAT 97
--- NOTE | 2024-05-25 12:57 | Discharge Summary ---
Discharge Summary Date of Service May 25, 2024 Principal Dx & Hospital Course #1 = Principal Diagnosis (1) Embolism, pulmonary with infarction: In summary, 43-year-old female with past medical significant for hyperinsulinism, nonsustained ventricular tachycardia, GERD, overactive bladder, chronic pain, obesity, chronic fatigue, general anxiety disorder presents with right-sided chest pain and found to have acute PE. Acute pulmonary embolism with infarction Hypercoagulable workup sent by ER Started on IV heparin, will transition to apixaban 10 mg twice daily for 7 days and then 5 mg twice daily Echocardiogram reviewed and patient has normal left ventricular function and no appreciable valvular disease. Venous duplex scan negative for DVT in either extremity Monitor in the hospital This is an unprovoked PE and she may need lifelong anticoagulation. This was discussed in detail History of nonsustained ventricular tachycardia Continue to monitor GERD Continue famotidine and omeprazole DVT prophylaxis IV heparin with conversion to apixaban Disposition Med/telemetry Anxiety She is reluctant to take anything we will give hydroxyzine as needed and she is agreeable to that. Full code. Notes For Next Care Provider Check pending coag workup lab studies done on admission Medication Changes From Visit Abixaban 10 mg bid x 7 days and then 5 mg BID Admission HPI Per Admitting Provider 43-year-old female with past medical significant for hyperinsulinism, nonsustained ventricular tachycardia, GERD, overactive bladder, chronic pain, obesity, chronic fatigue, general anxiety disorder presents with right-sided chest pain and found to have acute PE. Patient states she woke up in the morning with right shoulder pain radiating to the right back of the chest thought it would go away but it was not getting better so came to the ER. The pain is more when she taking deep breath. Denies any shortness of breath. No cough. No fevers. Currently no headache. Vision is okay. No runny nose or sore throat. Appetite is okay. No nausea. No abdominal pain. Normal bowel and bladder movements. No bloody or black stools. No hematuria. No rash. No swelling in the legs. Hemodynamics okay. No recent long distance travel. No recent surgery. Mother had a blood clot once after surgery and once after after being hit by a ball as per patient.Patient had history of Lyme disease. Past medical history. As mentioned above Past surgical history. Colonoscopy. Colposcopy. Dilatation curettage. EGD. EGD with endoscopic ultrasound. Hysteroscopy. Removal of several ovary and cyst. Social history. quit smoking 2008. Smoked 1 pack a day for 5 years. No alcohol use. No drug use. Family history mother had blood clots. CLL. Diabetes. Kidney stones. Maternal aunt had breast cancer. Maternal grandmother had breast cancer. Maternal aunt had diabetes. Maternal grandfather had diabetes. Maternal grandmother had diabetes. Admission Exam Per Admitting Provider Physical Exam Physical Exam: General- Not in distress. Head- atraumatic Eyes- PERRL. ENT- oropharynx clear Neck- supple, no JVD. Lungs- clear to auscultation no wheezing or crackles Heart- regular rate and rhythm; no murmur, no gallop. Abdomen- normal bowel sounds, soft, nontender, no distension Extremities- no pretibial edema, no erythema seen. Neuro- alert, oriented; PERRL, no facial palsy; no dysarthria; moves extremities Discharge Exam General- Alert NAD Head- atraumatic Eyes- PERRL, EOMI, anicteric ENT- oropharynx clear Neck- supple, no JVD, no adenopathy, no thyromegaly; carotids +2/2, no bruits appreciated Lungs- clear to auscultation and percussion Heart- regular rhythm; no murmur, no gallop, no rub appreciated Abdomen- normal bowel sounds, soft, nontender, no masses or hepatosplenomegaly Extremities- no pretibial edema, no calf tenderness; peripheral pulses intact, Neg Isaac sign Neuro- alert, oriented x 3; PERRL, EOMI; no facial palsy; no dysarthria; motor 5/5 bilaterally; no cogwheel rigidity; patellar DTRs +2/2; toes downgoing bilaterally; finger to nose intact bilaterally Skin- warm & dry Updated Medication List Medication Instructions Recorded Confirmed Type omeprazole 20 mg capsule,delayed 20 mg PO QAM 05/07/23 05/23/24 History release plecanatide 3 mg tablet (Trulance) 3 mg PO QAM 05/07/23 05/23/24 History cholecalciferol (vitamin D3) 50 50 mcg PO DAILY 05/23/24 05/23/24 History mcg (2,000 unit) tablet (Vitamin D3) cyanocobalamin (vitamin B-12) 500 500 mcg PO DAILY 05/23/24 05/23/24 History mcg tablet (Vitamin B-12) famotidine 20 mg tablet 20 mg PO AMHS 05/23/24 05/23/24 History bezotovn-kgg-cbst-FA-Ca carb-vit K 1 tab PO DAILY 05/23/24 05/23/24 History 18 mg iron-400 mcg-500 mg tablet (Women's One Daily) apixaban 5 mg (74 tabs) tablets in 5 mg PO BID #74 ea 05/25/24 Rx a dose pack (Eliquis) Hospital Stay Data Consultations 05/23/24 22:01 ED Decision to Admit Stat Diagnostic Imagining Performed 05/23/24 19:29 US gallbladder Stat 05/23/24 20:41 CT abd pelvis IV con only Stat CT angio chest PE protocol Stat 05/24/24 00:59 US venous doppler LE BI Routine Pending Results Patient Have Any Pending Studies at Discharge: Yes Discharge Instructions Given to Patient (Per Discharging Provider) Coag workup studies are pending. Please follow up Total Time Total Time Spent Total Time Spent (In Minutes): 40 minutes spent in documentation and discharge planning
[2024-05-25 13:29] VITALS: BP 112/69
== END 2024-05-25 14:20 | disposition home or self-care (01) | DRG 176 ==
LOC: ED 19:12 → 2N 23:47 → INTOOBSV 23:47 → SUATTDRO 23:47 → 2N 05-24 00:18